=== PATIENT | male | born 1940 ===

== ENCOUNTER 2016-08-31 08:18 | Day surgery (SDC) | payer MEDICARE ==
[2015-07-12 10:22] VITALS: BMI 29.0
[2016-08-31] MEDS ORDERED: Iodixanol 320 MG/ML 200 ML BOTTLE IV ONE (09:12)
[2016-08-31] MEDS ORDERED: Iodixanol 320 MG/ML 100 ML BOTTLE IV ONE (09:12)
[2016-08-31] MEDS ORDERED: Midazolam 2 MG/2 ML VIAL ONE (10:05)
[2016-08-31] MEDS ORDERED: Sodium Chloride 0.45% 1,000 ML IV SCH (15:15)
[2016-08-31] MEDS ORDERED: Sodium Chloride 0.9% 1,000 ML IV ONE (15:45)
[2016-08-31 18:22] VITALS: O2SAT 98
[2016-08-31 18:57] VITALS: BP 146/66; PULSE 63; RESP 18; TEMP 98
--- NOTE | 2016-09-01 05:55 | OP ---
PROCEDURE DATE: 08/31/2016 PERIPHERAL ANGIOGRAPHY AND INTERVENTION REPORT PERFORMING PHYSICIAN: Bharati Coreas MD PREOPERATIVE DIAGNOSES: Peripheral vascular disease, claudication. POSTOPERATIVE DIAGNOSES: Peripheral vascular disease, claudication. PROCEDURE PERFORMED: Retrograde access right common femoral artery, selective catheter placement in the left popliteal artery via contralateral approach. Abdominal aortography with bilateral iliofemoral runoff, bilateral lower extremity angiography, distal embolic protection device in the left popliteal artery, atherectomy of the left popliteal artery, angioplasty of the left popliteal artery. COMPLICATIONS: None. HISTORY: As follows, the patient is a 76-year-old male with a past medical history of hypertension and diabetes mellitus with lifestyle limiting claudication involving the left lower extremity. Ankle brachial index was abnormal. The patient is referred for peripheral angiography. DESCRIPTION OF PROCEDURE: : As follows: After obtaining informed consent, the patient was prepped and draped in usual sterile fashion. The right groin was anesthetized with 2% lidocaine solution. A 5-Irish sheath was inserted into the right common femoral artery using modified Seldinger technique. A non-invasive catheter was advanced in the abdominal aorta. Abdominal aortography is performed. A cast was then positioned with iliac bifurcation. Bilateral iliofemoral runoff was performed. Selective angiography was performed to the left lower extremity. Intervention was performed as described below. FINDINGS: The inferior renal abdominal aorta is free of aneurysm or dissection. Bilateral renal arteries *------* normally. There is no significant renal artery stenosis. The iliac arteries exhibit no significant atherosclerosis bilaterally. There is calcific plaque of significant stenosis on the right common femoral artery. The left common femoral artery is not diseased. The superficial femoral arteries exhibit no significant atherosclerosis bilaterally. In the left leg, there is calcification with a severe 95% stenosis of the proximal left popliteal artery. There is subsequent stenosis as well in the mid popliteal artery. There is a heavy calcified plaque with septal occlusion at the proximal tibioperoneal trunk. They are predominantly single-vessel runoff via the left posterior tibial artery. There is an 80 to 90% stenosis of the proximal third of the left posterior tibial artery. The right leg, there is single-vessel runoff via the right anterior tibial artery. The sheath was exchanged for 7 x 45 cm Cook sheath. Anticoagulation was given. An *------* guidewire was advanced using ZouxiuBlazer support catheter across the aortic stenosis in the popliteal artery position selectively in the mid popliteal artery. The guidewire was removed after advancement of the TrailBlazer catheter. An [employer] BareWire was then advanced through the Omniflush catheter and was placed in the distal tip in the mid left popliteal artery. The TrailBlazer catheter was removed. An Emboshield was advanced over the BareWire and deployed in a distal popliteal artery. A [employer] pathway atherectomy device was advanced over the BareWire and atherectomy was performed of the popliteal artery. Balloon angioplasty was performed 4 x 60 mm balloon with two separate inflations. There was a 30% residual stenosis. The patient at brisk antegrade flow and therefore decision was made to retrieve the Emboshield. There were no complications, and the patient tolerated the procedure well. CONCLUSION: Severe calcific plaque noted in the left popliteal artery, successful atherectomy and angioplasty of the left popliteal artery. PLAN: The patient will continue with current medical therapy. Medical therapy will be provided in consideration for cilostazol. The patient will need follow up ankle brachial indices. Bharati Coreas MD
== END 2016-08-31 19:00 | disposition home or self-care (01) ==
LOC: C.CATHLAB 08:18
PROVIDERS: ATTEND Internal Medicine Cardiovascular Disease
DX: I70.212 Atherosclerosis of native arteries of extremities with intermittent claudication, left leg (principal)
CPT/HCPCS: 36247; 37225; 75625; 75716; 75774; 82948; 85347; 94770; C1724; C1766; C1769; C1884; C1887; C1894; J0360; J1644; J2250; J3010; J7030; J7040; Q9966; Q9967

== ENCOUNTER 2017-02-24 10:16 | Emergency (ER) | payer MEDICARE ==
[2017-02-24 10:17] VITALS: BMI 29.0
[2017-02-24 10:26] VITALS: BP 162/63; PULSE 59; RESP 18; TEMP 97.8; O2SAT 99
--- NOTE | 2017-02-24 11:20 | C.PDOC ---
History Of Present Illness 76 y/o male presents to the ER complaining of lateral right ankle pain which has been present for 3 days. Patient reports that the pain started after he slipped and fell on an icy sidewalk 3 days ago. Patient does not have any other medical complaints. Time Seen by Provider: 02/24/17 10:47 Chief Complaint (Nursing): Lower Extremity Problem/Injury History Per: Patient History/Exam Limitations: no limitations Onset/Duration Of Symptoms: Days Current Symptoms Are (Timing): Still Present Severity: Moderate Past Medical History Reviewed: Historical Data, Nursing Documentation, Vital Signs Vital Signs: Last Vital Signs Temp 97.8 F 02/24/17 10:24 Pulse 59 L 02/24/17 10:24 Resp 18 02/24/17 10:24 BP 162/63 H 02/24/17 10:24 Pulse Ox 99 02/24/17 11:49 - Medical History PMH: Diabetes, HTN, Hypercholesterolemia Denies: Chronic Kidney Disease Surgical History: Hernia Repair (Inguinal,) - [facility] Procedures EXCISE CORD/EPID LES NEC (07/15/12) OTH & OPEN REPAIR DIRECT INGUINAL HERNIA W GRAFT OR PROSTH (07/15/12) OTHER OPEN UMBILICAL HERNIORRHAPHY (07/15/12) Family History: States: No Known Family Hx - Social History Hx Tobacco Use: No Hx Alcohol Use: No Hx Substance Use: No - Immunization History Hx Tetanus Toxoid Vaccination: No Hx Influenza Vaccination: No Hx Pneumococcal Vaccination: No Review Of Systems Except As Marked, All Systems Reviewed And Found Negative. Musculoskeletal: Positive for: Other (right lateral ankle pain) Neurological: Negative for: Weakness, Numbness Physical Exam - Physical Exam Appears: Non-toxic, No Acute Distress Skin: Normal Color, Warm, Ecchymosis (ecchymotic in right ankle, mild ecchymosis in toes) Head: Atraumatic, Normacephalic Eye(s): bilateral: Normal Inspection, PERRL Nose: Normal Oral Mucosa: Moist Neck: Supple Cardiovascular: Rhythm Regular Respiratory: Normal Breath Sounds, No Accessory Muscle Use Extremity: Normal ROM, No Tenderness, Deformity (right ankle), No Swelling Neurological/Psych: Oriented x3, Normal Speech, Normal Cognition, Normal Motor, Normal Sensation ED Course And Treatment O2 Sat by Pulse Oximetry: 99 (RA) Pulse Ox Interpretation: Normal - Other Rad R ankle X-Ray: Interpreted by Me (+ distal fib fx, partial) Progress Note: X-ray of right ankle ordered. ice, motrin, sugar tong splint Reevaluation Time: 11:35 Reassessment Condition: Improved - Physician Consult Information Outcome Of Conversation: 1130: info related to Dr. Velez- Ortho [employer]- will f/u in office. Medical Decision Making Medical Decision Making: R distal fib fx, partial ok for opt f/u per Ortho Disposition Doctor Will See Patient In The: Office Counseled Patient/Family Regarding: Studies Performed, Diagnosis - Disposition Referrals: Jose Alfredo Velez MD [Staff Provider] - Disposition: HOME/ ROUTINE Disposition Time: 11:36 Condition: GOOD Additional Instructions: mantiene elevado shanika puede Ibuprofeno 400-600 mg cada 6 horas shanika necessario Tramadol 50 mg (narcotico) para dolor mas danilo y para dormir. Sigue con Dr. Velez- [facility] [place] para hacer lilian en la semana que viene. Prescriptions: traMADol [Ultram] 50 mg PO Q6H #20 tab Instructions: Ankle Fracture (ED) Forms: [employer] (Vietnamese) Print Language: UZBEK - Clinical Impression Clinical Impression: Ankle fracture, right - Scribe Statement The provider has reviewed the documentation as recorded by the Marcelinoibbarbra Baumann Provider Attestation: All medical record entries made by the Scribe were at my direction and personally dictated by me. I have reviewed the chart and agree that the record accurately reflects my personal performance of the history, physical exam, medical decision making, and the department course for this patient. I have also personally directed, reviewed, and agree with the discharge instructions and disposition.
--- NOTE | 2017-02-24 11:41 | RAD ---
PROCEDURE: Right Ankle Radiographs. HISTORY: lateral R ankle, slip 3 days ago COMPARISON: None available. FINDINGS: BONES: Oblique comminuted displaced distal fibular fracture with intra-articular extension. No additional displaced fracture identified. Small calcaneal enthesophyte. Small heel spur. JOINTS: No dislocation. SOFT TISSUES: Soft tissue swelling. No evidence of radiopaque foreign body. Vascular calcifications. OTHER FINDINGS: None. IMPRESSION: Oblique comminuted displaced distal fibular fracture with intra-articular extension. Soft tissue swelling.
== END 2017-02-24 12:05 | disposition home or self-care (01) ==
LOC: C.ER 10:16
DX: S82.891A Other fracture of right lower leg, initial encounter for closed fracture (principal); W00.0XXA Fall on same level due to ice and snow, initial encounter; Y92.480 Sidewalk as the place of occurrence of the external cause

== ENCOUNTER 2017-03-07 08:35 | Day surgery (SDC) | payer MEDICARE ==
[2017-03-07] MEDS ORDERED: ceFAZolin IV 2 gm in Dextrose 2 GM/50 ML BAG IVPB ONE (12:09)
[2017-03-07] MEDS ORDERED: Lactated Ringer's 1,000 ML IV ONE ×2 (12:19→15:25)
[2017-03-07] MEDS ORDERED: Propofol 10 mg/ml Inj (20 ML) ONE ×2 (12:28→12:41)
[2017-03-07] MEDS ORDERED: Oxycodone/Acetaminophen 5/325 mg Tab PO PRN ×2 (13:39)
[2017-03-07] MEDS ORDERED: Labetalol 5 mg/ml Inj 20ML IV ONE (14:30)
[2017-03-07] MEDS ORDERED: Labetalol 25mg/5ml Syringe IV ONE (14:30)
--- NOTE | 2017-03-07 14:56 | PCM.SURG1 ---
Surgeon's Initial Post Op Note - Surgeon's Notes Surgeon: Dr. Liat DPM Missile Pad Mechanic: Dr. Kali Lainez MD; Dr. Andreas DPM PGY-2 Type of Anesthesia: General Endo Anesthesia Administered By: Dr. Harvey Pre-Operative Diagnosis: displaced right fibular fracture Operative Findings: see operative report Post-Operative Diagnosis: same Operation Performed: closed reduction with manipulation under anesthesia of right distal fibular fracture with cast application Specimen/Specimens Removed: none Estimated Blood Loss: EBL {In ML}: 0 Blood Products Given: N/A Drains Used: No Drains Date of Surgery/Procedure: 03/07/17 Time of Surgery/Procedure: 12:00
[2017-03-07 16:17] VITALS: RESP 16
[2017-03-07 17:34] VITALS: BP 163/58; PULSE 63; TEMP 98.7; O2SAT 97
--- NOTE | 2017-03-08 09:26 | RAD ---
PROCEDURE: Intraoperative Fluoroscopy. HISTORY: FX. RT. ANKLE FINDINGS: Fluoroscopic assistance was provided for right ankle closed reduction. Please refer to the operative report from Dr. SIGALA
== END 2017-03-07 18:37 | disposition home or self-care (01) ==
LOC: C.SDS 08:35
PROVIDERS: ATTEND Student in an Organized Health Care Education/Training Program
DX: S82.61XA Displaced fracture of lateral malleolus of right fibula, initial encounter for closed fracture (principal); S82.401A Unspecified fracture of shaft of right fibula, initial encounter for closed fracture; X58.XXXA Exposure to other specified factors, initial encounter
CPT/HCPCS: 27788; 82948; 97116; 97162; G8978; G8979; G8980; J0360; J0690; J1170; J2704; J3010; J7120

== ENCOUNTER 2017-04-21 09:38 | Inpatient (IN) | payer MEDICARE ==
[2017-04-21 09:38] VITALS: BMI 29.0
[2017-04-21] MEDS ORDERED: Piperacillin/Tazobact 3.375 gm 100 ML IV STA ×2 (10:09→11:21)
[2017-04-21] MEDS ORDERED: Sodium Chloride 0.9% 1,000 ML IV ONE (10:10)
[2017-04-21 10:45] LABS: BASO % 0.4 % (0.0-2.0); EOS % 0.3 % (0.0-4.0); HEMOGLOBIN 14.4 g/dL (12.0-18.0); LYMPH # 1.8 K/uL (1.0-4.3); LYMPH % 14.8 % (20.0-40.0); MEAN CELL VOLUME 91.7 fL (80.0-94.0); MEAN CORPUSCULAR HEMOGLOBIN 31.2 pg (27.0-31.0); MEAN PLATELET VOLUME 8.3 fL (7.2-11.7); MONO # 0.8 K/uL (0.0-0.8); MONO % 7.1 % (0.0-10.0); NEUT # 9.3 K/uL (1.8-7.0); NEUT % 77.4 % (50.0-75.0); RBC 4.62 Mil/uL (4.40-5.90); RED CELL DISTRIBUTION WIDTH 13.2 % (11.5-14.5)
--- NOTE | 2017-04-21 10:53 | RAD ---
PROCEDURE: Right Foot Radiographs. HISTORY: pain COMPARISON: None available. FINDINGS: BONES: Extensive degenerative changes particularly at the level of the distal 1st metatarsal. No acute displaced fracture. Small calcaneal enthesophyte and heel spur. JOINTS: No dislocation. SOFT TISSUES: Soft tissue ulceration/irregularity about the lateral aspect of the midfoot. No evidence of radiopaque foreign body. Vascular calcifications. OTHER FINDINGS: None. IMPRESSION: Soft tissue ulceration/irregularity about the lateral aspect of the midfoot. No acute displaced fracture or dislocation identified. If symptoms persist, or if there is continued clinical concern, x-ray follow-up in 7-10 days should be considered.
--- NOTE | 2017-04-21 10:59 | C.PDOC ---
History Of Present Illness Patient is a 76 y/o male, with a Hx of DM, HTN, and HLD, who presents to the ED with a complaint of an ulcer to the right foot. Patient had a closed reduction of right distal fibula fracture with a cast applied on 03/07/17. Upon removal of cast on 04/03, patient was noted to have ulcer which was treated with antibiotics to no improvement. Patient was evaluated by technical advisor Dr. Josue today who instructed him to come to ED for evaluation. Notes wound has not improved and is very painful; denies any new trauma, fever, SOB, or CP. Patient does not check his sugar daily. Patient's PMD is Dr. Bay. Time Seen by Provider: 04/21/17 09:46 Chief Complaint (Nursing): Lower Extremity Problem/Injury History Per: Patient History/Exam Limitations: no limitations Onset/Duration Of Symptoms: Days Current Symptoms Are (Timing): Still Present Recent travel outside of the [place]: No Past Medical History Reviewed: Historical Data, Nursing Documentation, Vital Signs Vital Signs: Last Vital Signs Temp 98.5 F 04/21/17 13:30 Pulse 60 04/21/17 13:30 Resp 20 04/21/17 13:30 BP 154/72 H 04/21/17 13:30 Pulse Ox 98 04/21/17 17:38 - Medical History PMH: Diabetes, Fractures (RIGHT Fibula), HTN, Hypercholesterolemia Denies: Chronic Kidney Disease Surgical History: Hernia Repair (Inguinal,) - [facility] Procedures EXCISE CORD/EPID LES NEC (07/15/12) OTH & OPEN REPAIR DIRECT INGUINAL HERNIA W GRAFT OR PROSTH (07/15/12) OTHER OPEN UMBILICAL HERNIORRHAPHY (07/15/12) Family History: States: No Known Family Hx - Social History Hx Tobacco Use: No Hx Alcohol Use: No Hx Substance Use: No - Immunization History Hx Tetanus Toxoid Vaccination: No Hx Influenza Vaccination: Yes (2017) Hx Pneumococcal Vaccination: No Review Of Systems Constitutional: Negative for: Fever Cardiovascular: Negative for: Chest Pain Respiratory: Negative for: Shortness of Breath Musculoskeletal: Positive for: Leg Pain (right distal fibula ulcer) Physical Exam - Physical Exam Appears: Well, Non-toxic, No Acute Distress Skin: Warm, Dry Head: Atraumatic, Normacephalic Eye(s): bilateral: Normal Inspection, EOMI Nose: Normal Oral Mucosa: Moist Neck: Normal ROM, Supple Chest: Symmetrical Cardiovascular: Rhythm Regular Respiratory: No Decreased Breath Sounds, No Rales, No Rhonchi, No Wheezing, Other (speaking in full sentences) Gastrointestinal/Abdominal: Soft, No Tenderness Extremity: Tenderness, Capillary Refill (< 3 sec), Other (3 cm ulceration at the base of the 5th metatarsal (+) purulent drainage (+)necrotic eschar (+) surrounding erythema) Pulses: Right Dorsalis Pedis: Decreased Neurological/Psych: Oriented x3, Normal Speech, Other (no focal deficits) ED Course And Treatment - Laboratory Results Result Diagrams: 04/21/17 10:38 04/21/17 10:38 O2 Sat by Pulse Oximetry: 98 - Other Rad Right foot X-Ray: Interpreted by Me, Viewed By Me Interpretation: PROCEDURE: Right Foot Radiographs. HISTORY: pain. COMPARISON : None available. FINDINGS: BONES: Extensive degenerative changes particularly at the level of the distal 1st metatarsal. No acute displaced fracture. Small calcaneal enthesophyte and heel spur. JOINTS: No dislocation. SOFT TISSUES: Soft tissue ulceration/irregularity about the lateral aspect of the midfoot. No evidence of radiopaque foreign body. Vascular calcifications. OTHER FINDINGS: None. IMPRESSION: Soft tissue ulceration/ irregularity about the lateral aspect of the midfoot. No acute displaced fracture or dislocation identified. If symptoms persist, or if there is continued clinical concern, x-ray follow-up in 7-10 days should be considered. Progress Note: Blood work and IV fluids administered. CAse discussed with david Salter dupon admission. Case discussed with podiatry resident, who evaluted pt in ED and agreed upon admission. Disposition - Disposition Disposition: HOSPITALIZED Disposition Time: 11:00 Condition: STABLE - Clinical Impression Clinical Impression: Hyperglycemia, Non-healing ulcer of foot - Scribe Statement The provider has reviewed the documentation as recorded by the Scribbarbra Sandoval All medical record entries made by the Marcelinoibbarbra were at my direction and personally dictated by me. I have reviewed the chart and agree that the record accurately reflects my personal performance of the history, physical exam, medical decision making, and the department course for this patient. I have also personally directed, reviewed, and agree with the discharge instructions and disposition.
[2017-04-21 11:09] LABS: ALB/GLOB RATIO 1.2 (1.0-2.1); ALBUMIN 4.2 g/dL (3.5-5.0); ALT/SGPT 33 U/L (21-72); AST/SGOT 27 U/L (17-59); BLOOD UREA NITROGEN 26 mg/dL (9-20); CALCIUM 9.6 mg/dl (8.6-10.4); GFR AFRICAN-AMERICAN > 60; GFR NON-AFRICAN AMERICAN > 60
[2017-04-21] MEDS ORDERED: Bacitracin 500 Units/gm Oint Foilpak UD ONE (11:13)
[2017-04-21] MEDS ORDERED: Piperacillin/Tazobact 3.375 gm 100 ML IVPB ONE (11:30)
--- NOTE | 2017-04-21 11:33 | CP.PCM.CON ---
History of Present Illness - History of Present Illness History of Present Illness: Podiatry Consult Note: Dr. Josue 76 year old male patient with PMHx of DM, HTN, HLD was seen and evaluated in the ED for right lateral foot infected wound. Patient has a history of right fibular fracture for which he was placed in a long leg cast. Patient was educated to remain NWB while in cast but patient was non-compliant. Upon taking off the cast, patient was observed to have an ulcer on the right lateral foot at the pressure point area of the cast from weight bearing. Patient was placed on Augmentin when he was last seen and reports that he completed the full course. Patient reports that he was seen by Dr. Josue in his office earlier who sent him to the hospital for the progressed infection. Patient reports that he has a lot of pain at the site of the ulcer. Patient denies of having any recent F/N/V/C/SOB/CP/headache. Patient denies of having any other pedal complains at this time. PMHx: DM, HTN, HLD PSHx: Right fibular fracture reduction, hernia repair Allergies: N.K.D.A SocialHx: Denies of smoking, EtOH or illicit drug usage Review of Systems - Constitutional Constitutional: As Per HPI Past Patient History - Past Medical History & Family History Past Medical History?: Yes - Past Social History Smoking Status: Former Smoker - CARDIAC Hx Hypercholesterolemia: Yes Hx Hypertension: Yes - PULMONARY Hx Respiratory Disorders: No - NEUROLOGICAL Hx Neurological Disorder: No - HEENT Hx HEENT Problems: No - RENAL Hx Chronic Kidney Disease: No - ENDOCRINE/METABOLIC Hx Endocrine Disorders: Yes Hx Diabetes Mellitus Type 2: Yes - HEMATOLOGICAL/ONCOLOGICAL Hx Blood Disorders: No - INTEGUMENTARY Hx Dermatological Problems: No - MUSCULOSKELETAL/RHEUMATOLOGICAL Hx Fractures: Yes (RIGHT Fibula) - GASTROINTESTINAL Hx Gastrointestinal Disorders: No - GENITOURINARY/GYNECOLOGICAL Hx Genitourinary Disorders: No - PSYCHIATRIC Hx Substance Use: No - SURGICAL HISTORY Hx Surgeries: Yes Hx Angiogram: Yes Hx Angioplasty: Yes Hx Herniorrhaphy: Yes - ANESTHESIA Hx Anesthesia: Yes Hx Anesthesia Reactions: No Hx Malignant Hyperthermia: No Meds Allergies/Adverse Reactions: Allergies Allergy/AdvReac Type Severity Reaction Status Date / Time No Known Allergies Allergy Verified 04/21/17 09:41 - Medications Medications: Current Medications Piperacillin Sod/Tazobactam Sod (Zosyn 3.375 In Ns 100ml) 100 mls @ 200 mls/hr IV STAT STA PRN Reason: Protocol Stop: 04/21/17 11:50 Physical Exam - Constitutional Appears: Well, Non-toxic, No Acute Distress - Extremities Exam Additional comments: RLE focused exam: VASC: DP/PT pulses are palpable 1/4 . Cap refill time: < 3 seconds to all digits. Skin temperature warm to warm from proximal to distal. mild non-pitting edema noted on on the foot extending to the ankle with accompanied erythema DERM: wound measuring approx. 2.5 x 1.5cm x <0.1 cm at the base of the 5th metatarsal on the lateral aspect with no active purulent drainage, wound base appears to have 75% necrotic eschar with 25% fibrotic on the dorsal rim, minimal serous drainage upon pressing the wound edges, no maceration, no tunneling, (+) probe to bone with exposed extensor tendon, mild malodor, troy- wound erythema noted not extending proximally, clinical suspicion of active infection NEURO: Epicritic and protective sensation grossly intact ORTHO: mild tenderness on palpation of the ulcerated site, Alva's negative, no pain on palpation of the calf, MMT: 5/5 in all 4 directions at the ankle joint - Neurological Exam Neurological exam: Alert, Oriented x3 - Psychiatric Exam Psychiatric exam: Normal Affect, Normal Mood Results - Vital Signs Recent Vital Signs: Last Vital Signs Temp 97.6 F 04/21/17 09:42 Pulse 84 04/21/17 09:42 Resp 18 04/21/17 09:42 BP 163/86 H 04/21/17 09:42 Pulse Ox 98 04/21/17 11:25 - Labs Result Diagrams: 04/21/17 10:38 04/21/17 10:38 Labs: Laboratory Results - last 24 hr 04/21/17 04/21/17 04/21/17 10:04 10:38 10:38 WBC 12.0 H RBC 4.62 Hgb 14.4 Hct 42.4 MCV 91.7 MCH 31.2 H MCHC 34.0 RDW 13.2 Plt Count 343 D MPV 8.3 Neut % (Auto) 77.4 H Lymph % (Auto) 14.8 L Hutchinson % (Auto) 7.1 Eos % (Auto) 0.3 Baso % (Auto) 0.4 Neut # (Auto) 9.3 H Lymph # (Auto) 1.8 Hutchinson # (Auto) 0.8 Eos # (Auto) 0.0 Baso # (Auto) 0.0 Sodium 135 Potassium 4.7 Chloride 96 L Carbon Dioxide 23 Anion Gap 21 H BUN 26 H Creatinine 1.0 Est GFR ( Amer) > 60 Est GFR (Non-Af Amer) > 60 POC Glucose (mg/dL) 327 H Random Glucose 390 H Calcium 9.6 Total Bilirubin 0.4 AST 27 ALT 33 Alkaline Phosphatase 91 Total Protein 7.7 Albumin 4.2 Globulin 3.5 Albumin/Globulin Ratio 1.2 Assessment & Plan - Assessment and Plan (Free Text) Assessment: 76 year old male patient with PMHx of DM, HTN, HLD was evaluated for right lateral foot infected wound (Haines 3) Plan: Patient seen and evaluated in ED Plan discussed with attending Dr. Josue Labs, vitals and charts reviewed - afebrile, WBC @ 12.0 X-rays of the right foot ordered/reviewed - Void in the soft tissue with radiolucency at the site of the wound but no presence of soft tissue emphysema. Periosteal giovanna reaction noted at the styloid process of the 5th metatarsal possibly indicating acute OM Wound cultures taken - pending Wound cleaned using saline and dressing applied using bacitracin, DSD Bactroban ordered Patient started on Vancomycin and Zosyn in the ED Patient will be admitted to the hospital for fdc IV abx ID consult placed - Dr. Mary Thank you for the podiatry consult and allowing to take part in patient care Podiatry to follow patient while in house - Date & Time Date: 04/21/17 Time: 11:48
--- NOTE | 2017-04-21 17:40 | CP.PCM.HP ---
History of Present Illness - History of Present Illness History of Present Illness: [id number] male with history of diabetes history of hypertension history of hypercholesterolemia history of recent fibular fracture status post cost patient removed Noncompliant with the past 2 months removed patient has an ulcer patient came in to be seen as is on the dressing patient started on IV antibiotic patient received also p.o. antibiotic at home as per the patient did not get better eventually patient was brought to the hospital for further workup patient has diabetes long-standing patient denies any fever denies any chest pain denies any nausea denies any vomiting denies any sweating denies any shortness of breath Present on Admission - Present on Admission Any Indicators Present on Admission: No History of DVT/PE: No History of Uncontrolled Diabetes: Yes Urinary Catheter: No (per rptocol) Decubitus Ulcer Present: No History Surgical Site Infection Following: Orthopedic Procedures (right lrg) Past Patient History - Past Medical History & Family History Past Medical History?: Yes - Past Social History Smoking Status: Former Smoker - CARDIAC Hx Hypercholesterolemia: Yes Hx Hypertension: Yes - PULMONARY Hx Respiratory Disorders: No - NEUROLOGICAL Hx Neurological Disorder: No - HEENT Hx HEENT Problems: No - RENAL Hx Chronic Kidney Disease: No - ENDOCRINE/METABOLIC Hx Endocrine Disorders: Yes Hx Diabetes Mellitus Type 2: Yes - HEMATOLOGICAL/ONCOLOGICAL Hx Blood Disorders: No - INTEGUMENTARY Hx Dermatological Problems: Yes Other/Comment: Right distula fibula ulcer - MUSCULOSKELETAL/RHEUMATOLOGICAL Hx Fractures: Yes (RIGHT Fibula) - GASTROINTESTINAL Hx Gastrointestinal Disorders: No - GENITOURINARY/GYNECOLOGICAL Hx Genitourinary Disorders: No - PSYCHIATRIC Hx Substance Use: No - SURGICAL HISTORY Hx Surgeries: Yes Hx Angiogram: Yes Hx Angioplasty: Yes Hx Herniorrhaphy: Yes - ANESTHESIA Hx Anesthesia: Yes Hx Anesthesia Reactions: No Hx Malignant Hyperthermia: No Meds Allergies/Adverse Reactions: Allergies Allergy/AdvReac Type Severity Reaction Status Date / Time No Known Allergies Allergy Verified 04/21/17 09:41 Physical Exam - Constitutional Appears: Well - Head Exam Head Exam: ATRAUMATIC, NORMAL INSPECTION, NORMOCEPHALIC - Eye Exam Eye Exam: EOMI, Normal appearance, PERRL Pupil Exam: NORMAL ACCOMODATION, PERRL - ENT Exam ENT Exam: Mucous Membranes Moist, Normal Exam - Neck Exam Neck exam: Positive for: Normal Inspection - Respiratory Exam Respiratory Exam: Decreased Breath Sounds - Cardiovascular Exam Cardiovascular Exam: REGULAR RHYTHM, +S1, +S2 - GI/Abdominal Exam GI & Abdominal Exam: Diminished Bowel Sounds, Soft - Rectal Exam Rectal Exam: Deferred Results - Vital Signs Recent Vital Signs: Last Vital Signs Temp 98.5 F 04/21/17 13:30 Pulse 60 04/21/17 13:30 Resp 20 04/21/17 13:30 BP 154/72 H 04/21/17 13:30 Pulse Ox 98 04/21/17 17:38 - Labs Result Diagrams: 05/01/17 06:16 05/01/17 06:16 Labs: Laboratory Results - last 24 hr 04/21/17 04/21/17 04/21/17 10:04 10:38 10:38 WBC 12.0 H RBC 4.62 Hgb 14.4 Hct 42.4 MCV 91.7 MCH 31.2 H MCHC 34.0 RDW 13.2 Plt Count 343 D MPV 8.3 Neut % (Auto) 77.4 H Lymph % (Auto) 14.8 L [place] % (Auto) 7.1 Eos % (Auto) 0.3 Baso % (Auto) 0.4 Neut # (Auto) 9.3 H Lymph # (Auto) 1.8 [place] # (Auto) 0.8 Eos # (Auto) 0.0 Baso # (Auto) 0.0 Sodium 135 Potassium 4.7 Chloride 96 L Carbon Dioxide 23 Anion Gap 21 H BUN 26 H Creatinine 1.0 Est GFR ( Amer) > 60 Est GFR (Non-Af Amer) > 60 POC Glucose (mg/dL) 327 H Random Glucose 390 H Calcium 9.6 Total Bilirubin 0.4 AST 27 ALT 33 Alkaline Phosphatase 91 Total Protein 7.7 Albumin 4.2 Globulin 3.5 Albumin/Globulin Ratio 1.2 04/21/17 13:34 WBC RBC Hgb Hct MCV MCH MCHC RDW Plt Count MPV Neut % (Auto) Lymph % (Auto) [place] % (Auto) Eos % (Auto) Baso % (Auto) Neut # (Auto) Lymph # (Auto) [place] # (Auto) Eos # (Auto) Baso # (Auto) Sodium Potassium Chloride Carbon Dioxide Anion Gap BUN Creatinine Est GFR ( Amer) Est GFR (Non-Af Amer) POC Glucose (mg/dL) 176 H Random Glucose Calcium Total Bilirubin AST ALT Alkaline Phosphatase Total Protein Albumin Globulin Albumin/Globulin Ratio Assessment & Plan (1) Cellulitis Status: Acute (2) Hyperglycemia Status: Acute (3) Non-healing ulcer of foot Status: Acute (4) Osteomyelitis Status: Acute (5) Ankle fracture, right Status: Acute (6) Ankle pain Status: Acute (7) Hyperglycemia without ketosis Status: Acute (8) Leg pain, bilateral Status: Acute (9) Ulcer Status: Acute - Assessment and Plan (Free Text) Plan: Vascular surgical consult ID consult Vascular Doppler of both lower legs arterial and venous IV antibiotic Septic workup PODIATRY consultations Workup for foot ulcer Protonix and Lovenox
[2017-04-21] MEDS: Piperacillin/Tazobact 3.375 GM in Sodium Chloride 100 ML IVPB SCH (19:03)
[2017-04-21] MEDS ORDERED: HYDROmorphone 1 mg/ml ISec IVP PRN (22:55)
[2017-04-22] MEDS: Piperacillin/Tazobact 3.375 GM in Sodium Chloride 100 ML IVPB SCH ×3 (03:22→20:49)
[2017-04-22 07:13] LABS: BASO # 0.1 K/uL (0.0-0.2); BASO % 0.7 % (0.0-2.0); EOS # 0.1 K/uL (0.0-0.7); EOS % 1.1 % (0.0-4.0); HEMOGLOBIN 13.3 g/dL (12.0-18.0); LYMPH # 2.6 K/uL (1.0-4.3); LYMPH % 26.7 % (20.0-40.0); MEAN CELL VOLUME 91.2 fL (80.0-94.0); MEAN CORPUSCULAR HEMOGLOBIN 31.3 pg (27.0-31.0); MEAN CORPUSCULAR HGB CONC 34.3 g/dL (33.0-37.0); MEAN PLATELET VOLUME 7.9 fL (7.2-11.7); MONO # 0.8 K/uL (0.0-0.8); MONO % 7.9 % (0.0-10.0); NEUT # 6.2 K/uL (1.8-7.0); NEUT % 63.6 % (50.0-75.0); RBC 4.24 Mil/uL (4.40-5.90); RED CELL DISTRIBUTION WIDTH 13.2 % (11.5-14.5); WHITE BLOOD COUNT 9.8 K/uL (4.8-10.8)
[2017-04-22 07:57] LABS: ALB/GLOB RATIO 1.1 (1.0-2.1); ALBUMIN 3.7 g/dL (3.5-5.0); ALT/SGPT 26 U/L (21-72); AST/SGOT 23 U/L (17-59); BLOOD UREA NITROGEN 22 mg/dL (9-20); CALCIUM 8.9 mg/dl (8.6-10.4); GFR AFRICAN-AMERICAN > 60; GFR NON-AFRICAN AMERICAN > 60
--- NOTE | 2017-04-22 15:35 | CP.PCM.CON ---
History of Present Illness - History of Present Illness History of Present Illness: 76 year old male patient was seen and evaluated for right lateral foot infected wound. Patient has a history of right fibular fracture for which he was placed in a long leg cast. Patient was educated to remain NWB while in cast but patient was non-compliant. Upon taking off the cast, patient was observed to have an ulcer on the right lateral foot at the pressure point area of the cast from weight bearing. Patient was placed on Augmentin when he was last seen and reports that he completed the full course. Patient reports that he was seen by Dr. Josue in his office earlier who sent him to the hospital for the progressed infection. Patient reports that he has a lot of pain at the site of the ulcer. Patient denies of having any recent F/N/V/C/SOB/CP/headache. Patient denies of having any other pedal complains at this time. ID consulted for nonhealing wound r/o om PMHx: DM, HTN, HLD PSHx: Right fibular fracture reduction, hernia repair Allergies: N.K.D.A SocialHx: Denies of smoking, EtOH or illicit drug usage Review of Systems - Review of Systems All systems: reviewed and no additional remarkable complaints except - Constitutional Constitutional: absent: As Per HPI, Anorexia, Chills, Daytime Sleepiness, Excessive Sweating, Fatigue, Fever, Frequent Falls, Headache, Increased Appetite , Lethargy, Malaise, Night Sweats, Snoring, Sleep Apnea, Weight Gain, Weight Loss, Weakness, Other - EENT Eyes: absent: As Per HPI, Blind Spots, Blurred Vision, Change in Vision, Decreased Night Vision, Diplopia, Discharge, Dry Eye, Exophthalmos, Floaters, Irritation, Itchy Eyes, Loss of Peripheral Vision, Pain, Photophobia, Requires Corrective Lenses, Sees Flashes, Spots in Vision, Tunnel Vision, Other Visual Disturbances, Loss of Vision, Other Ears: absent: As Per HPI, Decreased Hearing, Ear Discharge, Ear Pain, Tinnitus, Abnormal Hearing, Disequilibrium, Dizziness, Other Nose/Mouth/Throat: absent: As Per HPI, Epistaxis, Nasal Congestion, Nasal Discharge, Nasal Obstruction, Nasal Trauma, Nose Pain, Post Nasal Drip, Sinus Pain, Sinus Pressure, Bleeding Gums, Change in Voice, Dental Pain, Dry Mouth, Dysphagia, Halitosis, Hoarsness, Lip Swelling, Mouth Lesions, Mouth Pain, Odynophagia, Sore Throat, Throat Swelling, Tongue Swelling, Facial Pain, Neck Pain, Neck Mass, Other - Cardiovascular Cardiovascular: absent: As Per HPI, Acrocyanosis, Chest Pain, Chest Pain at Rest , Chest Pain with Activity, Claudication, Diaphoresis, Dyspnea, Dyspnea on Exertion, Edema, Irregular Heart Rhythm, Pain Radiating to Arm/Neck/Jaw, Leg Edema, Leg Ulcers, Lightheadedness, Orthopnea, Palpitations, Paroxysmal Nocturnal Dyspnea, Pedal Edema, Radiating Pain, Rapid Heart Rate, Slow Heart Rate, Syncope, Other - Respiratory Respiratory: absent: As Per HPI, Cough, Dyspnea, Hemoptysis, Dyspnea on Exertion , Wheezing, Snoring, Stridor, Pain on Inspiration, Chest Congestion, Excessive Mucous Production, Change in Mucous Color, Pain with Coughing, Other - Gastrointestinal Gastrointestinal: absent: As Per HPI, Abdominal Pain, Belching, Bloating, Change in Bowel Habits, Change in Stool Character, Coffee Ground Emesis, Constipation, Cramping, Diarrhea, Dyspepsia, Dysphagia, Early Satiety, Excessive Flatus, Fecal Incontinence, Heartburn, Hematemesis, Hematochezia, Loose Stools, Melena, Nausea, Odynophagia, Temesmus, Vomiting, Other - Genitourinary Genitourinary: absent: As Per HPI, Change in Urinary Stream, Difficulty Urinating, Dysuria, Flank Pain, Hematuria, Pyuria, Nocturia, Urinary Incontinence, Urinary Frequency, Urinary Hesitance, Urinary Urgency, Voiding Freq/Small Amts, Freq UTI, Hx Renal/Bladder Calculi, Hx /Renal Surgery, Bladder Distension, Other - Musculoskeletal Musculoskeletal: As Per HPI - Integumentary Integumentary: As Per HPI - Neurological Neurological: absent: As Per HPI, Abnormal Gait, Abnormal Hearing, Abnormal Movements, Abnormal Speech, Behavioral Changes, Burning Sensations, Confusion, Convulsions, Disequilibrium, Dizziness, Numbness, Focal Weakness, Frequent Falls , Headaches, Lack of Coordination, Loss of Vision, Memory Loss, Paresthesias, Radicular Pain, Restless Legs, Sensory Deficit, Syncope, Tingling, Tremor, Vertigo, Weakness, Other Visual Disturbances, Other - Psychiatric Psychiatric: absent: As Per HPI, Abnormal Sleep Pattern, Anhedonia, Anxiety, Auditory Hallucinations, Behavioral Changes, Change in Appetite, Change in Libido, Confusion, Depression, Difficulty Concentrating, Hallucinations, Homicidal Ideation, Hopelessness, Irritability, Memory Loss, Mood Swings, Panic Attacks, Paranoia, Suicidal Ideation, Visual Hallucinations, Tactile Hallucinations, Other - Endocrine Endocrine: absent: As Per HPI, Change in Body Appearance, Change in Libido, Cold Intolorance, Deepening of Voice, Excessive Sweating, Fatigue, Flushing, Heat Intolorance, Increase in Ring/Shoe/Hat Size, Palpitations, Polydipsia, Polyphagia, Polyuria, Other - Hematologic/Lymphatic Hematologic: absent: As Per HPI, Easy Bleeding, Easy Bruising, Lymphadenopathy, Other Past Patient History - Past Medical History & Family History Past Medical History?: Yes - Past Social History Smoking Status: Former Smoker - CARDIAC Hx Hypercholesterolemia: Yes Hx Hypertension: Yes - PULMONARY Hx Respiratory Disorders: No - NEUROLOGICAL Hx Neurological Disorder: No - HEENT Hx HEENT Problems: No - RENAL Hx Chronic Kidney Disease: No - ENDOCRINE/METABOLIC Hx Endocrine Disorders: Yes Hx Diabetes Mellitus Type 2: Yes - HEMATOLOGICAL/ONCOLOGICAL Hx Blood Disorders: No - INTEGUMENTARY Hx Dermatological Problems: Yes Other/Comment: Right distula fibula ulcer - MUSCULOSKELETAL/RHEUMATOLOGICAL Hx Fractures: Yes (RIGHT Fibula) - GASTROINTESTINAL Hx Gastrointestinal Disorders: No - GENITOURINARY/GYNECOLOGICAL Hx Genitourinary Disorders: No - PSYCHIATRIC Hx Substance Use: No - SURGICAL HISTORY Hx Surgeries: Yes Hx Angiogram: Yes Hx Angioplasty: Yes Hx Herniorrhaphy: Yes - ANESTHESIA Hx Anesthesia: Yes Hx Anesthesia Reactions: No Hx Malignant Hyperthermia: No Meds Allergies/Adverse Reactions: Allergies Allergy/AdvReac Type Severity Reaction Status Date / Time No Known Allergies Allergy Verified 04/21/17 09:41 - Medications Medications: Current Medications Aspirin (Ecotrin) 81 mg PO DAILY [facility] Last Admin: 04/22/17 10:31 Dose: 81 mg Glimepiride (Amaryl) 4 mg PO DAILY [facility] Last Admin: 04/22/17 10:31 Dose: 4 mg Heparin Sodium (Porcine) (Heparin) 5,000 units SC Q8 [facility] Last Admin: 04/22/17 14:10 Dose: 5,000 units Hydromorphone HCl (Dilaudid) 1 mg IVP Q6H PRN PRN Reason: Pain, severe (8-10) Last Admin: 04/22/17 08:46 Dose: 1 mg Piperacillin Sod/Tazobactam (Sod 3.375 gm/ Sodium Chloride) 100 mls @ 200 mls/ hr IVPB Q8H [facility] PRN Reason: Protocol Last Admin: 04/22/17 12:04 Dose: 200 mls/hr Lisinopril (Zestril) 5 mg PO DAILY [facility] Last Admin: 04/22/17 10:31 Dose: 5 mg Metformin HCl (Glucophage Xr) 500 mg PO BID [facility] Last Admin: 04/22/17 10:45 Dose: 500 mg Mupirocin (Bactroban Ointment) 1 gm TOP BID [facility] Last Admin: 04/22/17 10:32 Dose: 1 applic Pneumococcal Polyvalent Vaccine (Pneumovax 23 Vaccine) 0.5 ml IM .ONCE ONE Stop: 04/24/17 10:01 Physical Exam - Constitutional Appears: Non-toxic, Chronically Ill - Head Exam Head Exam: NORMOCEPHALIC - Eye Exam Eye Exam: PERRL. absent: Scleral icterus - ENT Exam ENT Exam: Mucous Membranes Dry, Normal External Ear Exam - Neck Exam Neck exam: Negative for: Lymphadenopathy - Respiratory Exam Respiratory Exam: Decreased Breath Sounds, Clear to Auscultation Bilateral - Cardiovascular Exam Cardiovascular Exam: REGULAR RHYTHM, +S1, +S2 - GI/Abdominal Exam GI & Abdominal Exam: Diminished Bowel Sounds, Soft. absent: Tenderness - Rectal Exam Rectal Exam: Deferred - Exam Exam: NORMAL INSPECTION - Extremities Exam Extremities exam: Positive for: pedal edema, tenderness, pedal pulses present. Negative for: calf tenderness - Back Exam Back exam: absent: CVA tenderness (L), CVA tenderness (R) - Neurological Exam Neurological exam: Alert, CN II-XII Intact, Oriented x3, Reflexes Normal - Psychiatric Exam Psychiatric exam: Normal Mood - Skin Skin Exam: Dry Additional comments: RLE focused exam: VASC: DP/PT pulses are palpable 1/4 . Cap refill time: < 3 seconds to all digits. Skin temperature warm to warm from proximal to distal. mild non-pitting edema noted on on the foot extending to the ankle with accompanied erythema DERM: wound measuring approx. 2.5 x 1.5cm x <0.1 cm at the base of the 5th metatarsal on the lateral aspect with no active purulent drainage, wound base appears to have 75% necrotic eschar with 25% fibrotic on the dorsal rim, minimal serous drainage upon pressing the wound edges, no maceration, no tunneling, (+) probe to bone with exposed extensor tendon, mild malodor, troy- wound erythema noted not extending proximally, clinical suspicion of active infection NEURO: Epicritic and protective sensation grossly intact ORTHO: mild tenderness on palpation of the ulcerated site, Alva's negative, no pain on palpation of the calf, MMT: 5/5 in all 4 directions at the ankle joint Results - Vital Signs Recent Vital Signs: Last Vital Signs Temp 98.2 F 04/22/17 00:00 Pulse 67 04/22/17 00:00 Resp 20 04/22/17 00:00 BP 153/77 H 04/22/17 00:00 Pulse Ox 96 04/22/17 00:00 - Labs Result Diagrams: 04/22/17 07:04 04/22/17 07:04 Labs: Laboratory Results - last 24 hr 04/21/17 04/21/17 04/22/17 16:56 22:09 06:16 WBC RBC Hgb Hct MCV MCH MCHC RDW Plt Count MPV Neut % (Auto) Lymph % (Auto) [place] % (Auto) Eos % (Auto) Baso % (Auto) Neut # (Auto) Lymph # (Auto) [place] # (Auto) Eos # (Auto) Baso # (Auto) Sodium Potassium Chloride Carbon Dioxide Anion Gap BUN Creatinine Est GFR ( Amer) Est GFR (Non-Af Amer) POC Glucose (mg/dL) 188 H 144 H 160 H Random Glucose Calcium Total Bilirubin AST ALT Alkaline Phosphatase Total Protein Albumin Globulin Albumin/Globulin Ratio 04/22/17 04/22/17 04/22/17 07:04 07:04 11:37 WBC 9.8 RBC 4.24 L Hgb 13.3 Hct 38.7 MCV 91.2 MCH 31.3 H MCHC 34.3 RDW 13.2 Plt Count 297 MPV 7.9 Neut % (Auto) 63.6 Lymph % (Auto) 26.7 [place] % (Auto) 7.9 Eos % (Auto) 1.1 Baso % (Auto) 0.7 Neut # (Auto) 6.2 Lymph # (Auto) 2.6 [place] # (Auto) 0.8 Eos # (Auto) 0.1 Baso # (Auto) 0.1 Sodium 139 Potassium 4.5 Chloride 100 Carbon Dioxide 29 Anion Gap 15 BUN 22 H Creatinine 0.9 Est GFR ( Amer) > 60 Est GFR (Non-Af Amer) > 60 POC Glucose (mg/dL) 257 H Random Glucose 165 H Calcium 8.9 Total Bilirubin 0.4 AST 23 ALT 26 Alkaline Phosphatase 67 Total Protein 7.1 Albumin 3.7 Globulin 3.4 Albumin/Globulin Ratio 1.1 Assessment & Plan (1) Cellulitis Status: Acute (2) Hyperglycemia Status: Acute (3) Non-healing ulcer of foot Status: Acute (4) Hyperglycemia without ketosis Status: Acute (5) Leg pain, bilateral Status: Acute (6) Ulcer Status: Acute - Assessment and Plan (Free Text) Assessment: possible om right foot consider vascular eval may need CTA possible OR debridement and cultures cont IV rx for min 6 weeks
--- NOTE | 2017-04-22 16:04 | CP.PCM.PN ---
Subjective - Date & Time of Evaluation Date of Evaluation: 04/22/17 Time of Evaluation: 08:30 - Subjective Subjective: clinically same Objective - Vital Signs/Intake and Output Vital Signs (last 24 hours): Temp Pulse Resp BP Pulse Ox 98.2 F 67 20 153/77 H 96 04/22/17 00:00 04/22/17 00:00 04/22/17 00:00 04/22/17 00:00 04/22/17 00:00 Intake and Output: 04/22/17 04/22/17 06:59 18:59 Intake Total Balance - Medications Medications: Current Medications Aspirin (Ecotrin) 81 mg PO DAILY [facility] Last Admin: 04/22/17 10:31 Dose: 81 mg Glimepiride (Amaryl) 4 mg PO DAILY [facility] Last Admin: 04/22/17 10:31 Dose: 4 mg Heparin Sodium (Porcine) (Heparin) 5,000 units SC Q8 [facility] Last Admin: 04/22/17 14:10 Dose: 5,000 units Hydromorphone HCl (Dilaudid) 1 mg IVP Q6H PRN PRN Reason: Pain, severe (8-10) Last Admin: 04/22/17 08:46 Dose: 1 mg Piperacillin Sod/Tazobactam (Sod 3.375 gm/ Sodium Chloride) 100 mls @ 200 mls/ hr IVPB Q8H [facility] PRN Reason: Protocol Last Admin: 04/22/17 12:04 Dose: 200 mls/hr Lisinopril (Zestril) 5 mg PO DAILY [facility] Last Admin: 04/22/17 10:31 Dose: 5 mg Metformin HCl (Glucophage Xr) 500 mg PO BID [facility] Last Admin: 04/22/17 10:45 Dose: 500 mg Mupirocin (Bactroban Ointment) 1 gm TOP BID [facility] Last Admin: 04/22/17 10:32 Dose: 1 applic Pneumococcal Polyvalent Vaccine (Pneumovax 23 Vaccine) 0.5 ml IM .ONCE ONE Stop: 04/24/17 10:01 - Labs Labs: 04/22/17 07:04 04/22/17 07:04 - Constitutional Appears: Well - Head Exam Head Exam: ATRAUMATIC, NORMAL INSPECTION, NORMOCEPHALIC - Eye Exam Eye Exam: EOMI, Normal appearance, PERRL Pupil Exam: NORMAL ACCOMODATION, PERRL - ENT Exam ENT Exam: Mucous Membranes Moist, Normal Exam - Neck Exam Neck Exam: Full ROM, Normal Inspection. absent: Lymphadenopathy - Respiratory Exam Respiratory Exam: Decreased Breath Sounds - Cardiovascular Exam Cardiovascular Exam: REGULAR RHYTHM, +S1, +S2 - GI/Abdominal Exam GI & Abdominal Exam: Soft, Diminished Bowel Sounds - Rectal Exam Rectal Exam: Deferred Assessment and Plan - Assessment and Plan (Free Text) Plan: Vascular surgeon Doppler report follow-up We discussed with Dr. Hernandez Continue Amaryl Continue heparin Continue diluted Continue Zosyn Management as ordered
--- NOTE | 2017-04-22 16:38 | CP.PCM.PN ---
Subjective - Date & Time of Evaluation Date of Evaluation: 04/22/17 Time of Evaluation: 16:35 - Subjective Subjective: Podiatry progress Note: Dr. Josue 76 year old male seen at bedside for right lateral foot infected wound. Patient was admitted yesterday after being sent from Dr. Josue's office. Patient reports that he has a lot of pain at the site of the ulcer. Patient denies any acute events overnight. Patient appears in NAD. Dressing remains clean,dry, intact to right foot. Patient denies of having any recent F/N/V/C/SOB/CP/ headache. Patient denies of having any other pedal complains at this time. Objective - Vital Signs/Intake and Output Vital Signs (last 24 hours): Temp Pulse Resp BP Pulse Ox 97.9 F 71 20 139/73 96 04/22/17 15:00 04/22/17 15:00 04/22/17 15:00 04/22/17 15:00 04/22/17 15:00 Intake and Output: 04/22/17 04/22/17 06:59 18:59 Intake Total Balance - Medications Medications: Current Medications Aspirin (Ecotrin) 81 mg PO DAILY [facility] Last Admin: 04/22/17 10:31 Dose: 81 mg Glimepiride (Amaryl) 4 mg PO DAILY [facility] Last Admin: 04/22/17 10:31 Dose: 4 mg Heparin Sodium (Porcine) (Heparin) 5,000 units SC Q8 [facility] Last Admin: 04/22/17 14:10 Dose: 5,000 units Hydromorphone HCl (Dilaudid) 1 mg IVP Q6H PRN PRN Reason: Pain, severe (8-10) Last Admin: 04/22/17 16:06 Dose: 1 mg Piperacillin Sod/Tazobactam (Sod 3.375 gm/ Sodium Chloride) 100 mls @ 200 mls/ hr IVPB Q8H [facility] PRN Reason: Protocol Last Admin: 04/22/17 12:04 Dose: 200 mls/hr Lisinopril (Zestril) 5 mg PO DAILY [facility] Last Admin: 04/22/17 10:31 Dose: 5 mg Metformin HCl (Glucophage Xr) 500 mg PO BID [facility] Last Admin: 04/22/17 10:45 Dose: 500 mg Mupirocin (Bactroban Ointment) 1 gm TOP BID [facility] Last Admin: 04/22/17 10:32 Dose: 1 applic Pneumococcal Polyvalent Vaccine (Pneumovax 23 Vaccine) 0.5 ml IM .ONCE ONE Stop: 04/24/17 10:01 - Labs Labs: 04/22/17 07:04 04/22/17 07:04 - Constitutional Appears: Well, Non-toxic, No Acute Distress - Extremities Exam Additional comments: RLE focused exam: VASC: DP/PT pulses are palpable 1/4 . Cap refill time: < 3 seconds to all digits. Skin temperature warm to warm from proximal to distal. mild non-pitting edema noted on on the foot extending to the ankle with accompanied erythema DERM: wound measuring approx. 2.5 x 1.5cm x <0.1 cm at the base of the 5th metatarsal on the lateral aspect with no active purulent drainage, wound base appears to have 75% necrotic eschar with 25% fibrotic on the dorsal rim, minimal serous drainage upon pressing the wound edges, no maceration, no tunneling, (+) probe to bone with exposed extensor tendon, mild malodor, troy- wound erythema noted not extending proximally, clinical suspicion of active infection NEURO: Epicritic and protective sensation grossly intact ORTHO: mild tenderness on palpation of the ulcerated site, Alva's negative, no pain on palpation of the calf, MMT: 5/5 in all 4 directions at the ankle joint - Neurological Exam Neurological Exam: Alert, Awake, Oriented x3 - Psychiatric Exam Psychiatric exam: Normal Affect, Normal Mood Assessment and Plan - Assessment and Plan (Free Text) Assessment: 76 year old male patient seen at bedside for right foot ulceration (thomas 3) Plan: patient evaluated and chart reviewed Plan discussed with attending Dr. Josue Labs, vitals and charts reviewed - afebrile, WBC @ 9.8 X-rays of the right foot ordered/reviewed - Void in the soft tissue with radiolucency at the site of the wound but no presence of soft tissue emphysema. Periosteal giovanna reaction noted at the styloid process of the 5th metatarsal possibly indicating acute OM Wound cultures taken - prelim: gram negative rods Wound cleaned using saline and dressing applied using bactroban, DSD cont. zosyn as per ID Podiatry to follow patient while in house
[2017-04-22] MEDS: HYDROmorphone 1 mg/ml ISec IVP PRN (20:53)
[2017-04-23] MEDS: HYDROmorphone 1 mg/ml ISec IVP PRN (04:13)
[2017-04-23] MEDS: Piperacillin/Tazobact 3.375 GM in Sodium Chloride 100 ML IVPB SCH ×3 (04:15→20:13)
--- NOTE | 2017-04-23 12:01 | CP.PCM.PN ---
Subjective - Date & Time of Evaluation Date of Evaluation: 04/23/17 Time of Evaluation: 10:00 - Subjective Subjective: wound growing enterobacter iv rx in progress cipro added Objective - Vital Signs/Intake and Output Vital Signs (last 24 hours): Temp Pulse Resp BP Pulse Ox 98.5 F 63 20 145/79 97 04/23/17 07:38 04/23/17 07:38 04/23/17 07:38 04/23/17 07:38 04/23/17 07:38 Intake and Output: 04/23/17 04/23/17 06:59 18:59 Intake Total 560 Output Total 2100 Balance -1540 - Medications Medications: Current Medications Aspirin (Ecotrin) 81 mg PO DAILY [facility] Last Admin: 04/23/17 09:05 Dose: 81 mg Glimepiride (Amaryl) 4 mg PO DAILY [facility] Last Admin: 04/23/17 09:05 Dose: 4 mg Heparin Sodium (Porcine) (Heparin) 5,000 units SC Q8 [facility] Last Admin: 04/23/17 05:02 Dose: 5,000 units Hydromorphone HCl (Dilaudid) 1 mg IVP Q4H PRN PRN Reason: pain Last Admin: 04/23/17 04:13 Dose: 1 mg Piperacillin Sod/Tazobactam (Sod 3.375 gm/ Sodium Chloride) 100 mls @ 200 mls/ hr IVPB Q8H [facility] PRN Reason: Protocol Last Admin: 04/23/17 11:44 Dose: 200 mls/hr Lisinopril (Zestril) 5 mg PO DAILY [facility] Last Admin: 04/23/17 09:06 Dose: 5 mg Metformin HCl (Glucophage Xr) 500 mg PO BID [facility] Last Admin: 04/23/17 09:06 Dose: 500 mg Mupirocin (Bactroban Ointment) 1 gm TOP BID [facility] Last Admin: 04/23/17 09:06 Dose: Not Given Pneumococcal Polyvalent Vaccine (Pneumovax 23 Vaccine) 0.5 ml IM .ONCE ONE Stop: 04/24/17 10:01 - Labs Labs: 04/22/17 07:04 04/22/17 07:04 - Constitutional Appears: Non-toxic, Chronically Ill - Head Exam Head Exam: NORMOCEPHALIC - Eye Exam Eye Exam: PERRL - ENT Exam ENT Exam: Mucous Membranes Dry - Neck Exam Neck Exam: absent: Lymphadenopathy - Respiratory Exam Respiratory Exam: Decreased Breath Sounds - Cardiovascular Exam Cardiovascular Exam: REGULAR RHYTHM - GI/Abdominal Exam GI & Abdominal Exam: Distended - Rectal Exam Rectal Exam: Deferred Assessment and Plan (1) Cellulitis Status: Acute (2) Hyperglycemia Status: Acute (3) Non-healing ulcer of foot Status: Acute (4) Hyperglycemia without ketosis Status: Acute (5) Leg pain, bilateral Status: Acute (6) Ulcer Status: Acute - Assessment and Plan (Free Text) Assessment: possible OM for OR possibly later this week
--- NOTE | 2017-04-23 12:09 | VASCLAB ---
PROCEDURE: Lower Extremity Venous Duplex Exam. HISTORY: Edema PRIORS: None. TECHNIQUE: Bilateral common femoral, femoral, popliteal and posterior tibial, peroneal and great saphenous veins were evaluated. Flow was assessed with color Doppler, compressibility, assessment of phasic flow and augmentation response. Report prepared by STEVE Ferraro FINDINGS: RIGHT: 1. Common Femoral Vein: 1.1. Compressibility - Fully compressible: Thrombus - None : Flow - Phasic: Augmentation -Normal: Reflux - None. 2. Femoral Vein: 2.1. Compressibility - Fully compressible: Thrombus - None : Flow - Phasic: Augmentation -Normal: Reflux - None. 3. Popliteal Vein: 3.1. Compressibility - Fully compressible: Thrombus - None : Flow - Phasic: Augmentation -Normal: Reflux - None. 4. Posterior Tibial Vein: 4.1. Compressibility - Fully compressible: Thrombus - None: Flow - Phasic: Augmentation -Normal: Reflux - None. 5. Peroneal Vein: 5.1. Compressibility - Fully compressible: Thrombus - None: Flow - Phasic: Augmentation -Normal: Reflux - None. 6. Great Saphenous Vein: 6.1. Compressibility - Fully compressible: Thrombus - None: Flow - Phasic: Augmentation - Normal: Reflux - None. LEFT: 1. Common Femoral Vein: 1.1. Compressibility - Fully compressible: Thrombus - None: Flow - Phasic: Augmentation -Normal: Reflux - None. 2. Femoral Vein: 2.1. Compressibility - Fully compressible: Thrombus - None: Flow - Phasic: Augmentation -Normal: Reflux - None. 3. Popliteal Vein: 3.1. Compressibility - Fully compressible: Thrombus - None : Flow - Phasic: Augmentation -Normal: Reflux - None. 4. Posterior Tibial Vein: 4.1. Compressibility - Fully compressible: Thrombus - None: Flow - Phasic: Augmentation -Normal: Reflux - None. 5. Peroneal Vein: 5.1. Compressibility - Fully compressible: Thrombus - None: Flow - Phasic: Augmentation -Normal: Reflux - None. 6. Great Saphenous Vein: 6.1. Compressibility - Fully compressible: Thrombus - None: Flow - Phasic: Augmentation - Normal: Reflux - None. OTHER FINDINGS: Right: None significant. Left: None significant. IMPRESSION: Right: No evidence of deep or superficial vein thrombosis of the right lower extremity. Normal valve function noted of the right side. Left: No evidence of deep or superficial vein thrombosis of the left lower extremity. Normal valve function noted of the left side.
--- NOTE | 2017-04-23 12:09 | VASCLAB ---
STUDY DESCRIPTION: HISTORY: Peripheral Artery Disease, Right ulcer PRIORS: None. TECHNIQUE: Pulse volume recording waveforms and segmental pressures of bilateral lower extremities at multiple levels were obtained. Ankle Brachial Indices (ABIs) were calculated. Report prepared by STEVE Ferraro RIGHT LOWER EXTREMITY: * Brachial artery: Pressure - 143 mmHg. * High thigh: Pressure - mmHg: Ratio - : PVR waveform - Pulsatile * Low thigh: Pressure - mmHg: Ratio - PVR waveform: Pulsatile * Calf: Pressure - 163 mmHg: Ratio - 1.14 PVR waveform: Pulsatile * Posterior tibial Artery: Pressure - 123 mmHg: Ratio - 0.86 PVR waveform: Reduced * Dorsalis pedis Artery: Pressure - 90 mmHg: Ratio - 0.63 PVR waveform: Unable to obtain * Great toe: Pressure - absent 0.22 PVR waveform: absent Ankle brachial index (CARA): 0.86 LEFT LOWER EXTREMITY: * Brachial artery: Pressure - 143 mmHg. * High thigh: Pressure - mmHg: Ratio - : PVR waveform - Pulsatile * Low thigh: Pressure - mmHg: Ratio - PVR waveform: Pulsatile * Calf: Pressure - >220 mmHg: Ratio - n/c PVR waveform: Pulsatile * Posterior tibial Artery: Pressure - 110 mmHg: Ratio - 0.77 PVR waveform: Reduced * Dorsalis pedis Artery: Pressure - non audible pulse PVR waveform: Reduced * Great toe: Pressure - 32 mmHg: Ratio - 0.22 PVR waveform: Reduced Ankle brachial index (CARA): 0.77 OTHER FINDINGS: Right foot was dressed, unable to obtain pedal waveform. IMPRESSION: Right: Reduced ankle brachial index of 0.86. Reduced arterial (PVR) waveform at the ankle level. Absent PPG waveform of the right great toe. This exam reveals mild to moderate arterial insufficiency, involving the tibial and distal small arteries. Left: Reduced ankle brachial index of 0.77. Reduced arterial (PVR) waveform at the ankle, pedal and left great toe. This exam reveals mild to moderate arterial insufficiency, involving the tibial and distal small arteries. Recommend CT angiogram.
[2017-04-23] MEDS: Ciprofloxacin 400mg/200ml D5W 400 MG/200 ML BAG IVPB SCH (13:39)
--- NOTE | 2017-04-23 13:48 | CP.PCM.PN ---
Subjective - Date & Time of Evaluation Date of Evaluation: 04/23/17 Time of Evaluation: 08:50 - Subjective Subjective: clinically same Objective - Vital Signs/Intake and Output Vital Signs (last 24 hours): Temp Pulse Resp BP Pulse Ox 98.5 F 63 20 145/79 97 04/23/17 07:38 04/23/17 12:27 04/23/17 07:38 04/23/17 07:38 04/23/17 12:27 Intake and Output: 04/23/17 04/23/17 06:59 18:59 Intake Total 560 Output Total 2100 Balance -1540 - Medications Medications: Current Medications Aspirin (Ecotrin) [address] [facility] Last Admin: 04/23/17 09:05 Dose: 81 mg Glimepiride (Amaryl) [address] [facility] Last Admin: 04/23/17 09:05 Dose: 4 mg Heparin Sodium (Porcine) (Heparin) 5,[address] [facility] Last Admin: 04/23/17 13:44 Dose: 5,000 units Hydromorphone HCl (Dilaudid) 1 mg IVP Q4H PRN PRN Reason: pain Last Admin: 04/23/17 04:13 Dose: 1 mg Piperacillin Sod/Tazobactam (Sod 3.375 gm/ Sodium Chloride) 100 mls @ 200 mls/ hr IVPB Q8H [facility] PRN Reason: Protocol Last Admin: 04/23/17 11:44 Dose: 200 mls/hr Ciprofloxacin (Cipro 400mg/200ml Dsw) 400 mg in 200 mls @ 133 mls/hr IVPB Q12H [facility] PRN Reason: Protocol Last Admin: 04/23/17 13:39 Dose: 133 mls/hr Lisinopril (Zestril) [address] [facility] Last Admin: 04/23/17 09:06 Dose: 5 mg Metformin HCl (Glucophage Xr) [address] [facility] Last Admin: 04/23/17 09:06 Dose: 500 mg Mupirocin (Bactroban Ointment) [address] [facility] Last Admin: 04/23/17 09:06 Dose: Not Given Pneumococcal Polyvalent Vaccine (Pneumovax 23 Vaccine) 0.5 ml IM .ONCE ONE Stop: 04/24/17 10:01 - Labs Labs: 04/22/17 07:04 04/22/17 07:04 - Constitutional Appears: Well - Head Exam Head Exam: ATRAUMATIC, NORMAL INSPECTION, NORMOCEPHALIC - Eye Exam Eye Exam: EOMI, Normal appearance, PERRL Pupil Exam: NORMAL ACCOMODATION, PERRL - ENT Exam ENT Exam: Mucous Membranes Moist, Normal Exam - Neck Exam Neck Exam: Full ROM, Normal Inspection. absent: Lymphadenopathy - Respiratory Exam Respiratory Exam: Decreased Breath Sounds - Cardiovascular Exam Cardiovascular Exam: REGULAR RHYTHM, +S1, +S2 - GI/Abdominal Exam GI & Abdominal Exam: Soft, Diminished Bowel Sounds - Rectal Exam Rectal Exam: Deferred Assessment and Plan - Assessment and Plan (Free Text) Plan: Ankle x-rays done report is pending and Lower extremity ultrasound revealed reduced brachial index also reduced ankle- brachial index Duplex scan lower extremity arterial revealed no evidence of deep or superficial vein thrombosis ID consult Surgical consult Continue IV Cipro Continue local mupirocin Continue IV Zosyn Continue all other medication as ordered Wound care
--- NOTE | 2017-04-23 16:16 | CP.PCM.PN ---
Subjective - Date & Time of Evaluation Date of Evaluation: 04/23/17 Time of Evaluation: 13:47 - Subjective Subjective: Podiatry progress Note: Dr. Josue 76 year old male patient was seen at bedside this afternoon for right lateral decubitus ulceration. Patient had ankle dislocation in February of 2017 which then he was put in a cast. Patient was advised to be non-weight bearing with crutches, but had been walking on it, which then caused the ulcer to form. He complains of mild pain to Right foot at the site of ulceration. Patient of advised of podiatry plan of taking MRI, Vascular study and possible ulcer debridement in the OR. Patient agees with podiatry plan. He denies of any other pedal complaints. Patient denies of having any recent F/N/V/C/SOB/CP/headache. Objective - Vital Signs/Intake and Output Vital Signs (last 24 hours): Temp Pulse Resp BP Pulse Ox 98.5 F 63 20 145/79 97 04/23/17 07:38 04/23/17 12:27 04/23/17 07:38 04/23/17 07:38 04/23/17 12:27 Intake and Output: 04/23/17 04/23/17 06:59 18:59 Intake Total 560 Output Total 2100 Balance -1540 - Medications Medications: Current Medications Aspirin (Ecotrin) 81 mg PO DAILY [facility] Last Admin: 04/23/17 09:05 Dose: 81 mg Glimepiride (Amaryl) 4 mg PO DAILY [facility] Last Admin: 04/23/17 09:05 Dose: 4 mg Heparin Sodium (Porcine) (Heparin) 5,000 units SC Q8 [facility] Last Admin: 04/23/17 13:44 Dose: 5,000 units Hydromorphone HCl (Dilaudid) 1 mg IVP Q4H PRN PRN Reason: pain Last Admin: 04/23/17 04:13 Dose: 1 mg Piperacillin Sod/Tazobactam (Sod 3.375 gm/ Sodium Chloride) 100 mls @ 200 mls/ hr IVPB Q8H [facility] PRN Reason: Protocol Last Admin: 04/23/17 11:44 Dose: 200 mls/hr Ciprofloxacin (Cipro 400mg/200ml Dsw) 400 mg in 200 mls @ 133 mls/hr IVPB Q12H [facility] PRN Reason: Protocol Last Admin: 04/23/17 13:39 Dose: 133 mls/hr Lisinopril (Zestril) 5 mg PO DAILY [facility] Last Admin: 04/23/17 09:06 Dose: 5 mg Metformin HCl (Glucophage Xr) 500 mg PO BID [facility] Last Admin: 04/23/17 09:06 Dose: 500 mg Mupirocin (Bactroban Ointment) 1 gm TOP BID [facility] Last Admin: 04/23/17 09:06 Dose: Not Given Pneumococcal Polyvalent Vaccine (Pneumovax 23 Vaccine) 0.5 ml IM .ONCE ONE Stop: 04/24/17 10:01 - Labs Labs: 04/22/17 07:04 04/22/17 07:04 - Constitutional Appears: Well, Non-toxic, No Acute Distress - Head Exam Head Exam: ATRAUMATIC - Extremities Exam Additional comments: RLE focused exam: DERM: Open wound measuring approx. 2.5 x 1.5cm x <0.1 cm at the base of the 5th metatarsal on the lateral aspect with no active purulent drainage, wound base appears to have 75% necrotic eschar with 25% fibrotic on the dorsal rim, minimal serous drainage upon pressing the wound edges, no maceration, no tunneling, (+) probe to bone with exposed extensor tendon, mild malodor, troy- wound erythema noted not extending proximally, clinical suspicion of active infection VASC: DP/PT pulses are palpable 1/4 . Cap refill time: < 3 seconds to all digits. Skin temperature warm to warm from proximal to distal. mild non-pitting edema noted on on the foot extending to the ankle with accompanied erythema NEURO: Epicritic and protective sensation grossly intact ORTHO: mild tenderness on palpation of the ulcerated site, Alva's negative, no pain on palpation of the calf, MMT: 5/5 in all 4 directions at the ankle joint - Neurological Exam Neurological Exam: Alert, Awake, Oriented x3 - Psychiatric Exam Psychiatric exam: Normal Affect, Normal Mood - Skin Skin Exam: Normal Color, Warm Assessment and Plan - Assessment and Plan (Free Text) Assessment: 76 year old male patient seen at bedside for right foot ulceration (thomas 3) Plan: patient evaluated and chart reviewed Rounded with attending Dr. Josue Labs, vitals and charts reviewed - afebrile X-rays of the right foot ordered/reviewed MRI ordered to r/o OM Vascular consulted; Right CARA 0.86, Left CARA 0.77 with mild to moderate arterial insufficiency WCX: prelim: gram negative rods Wound cleaned using saline and dressing applied using bactroban, DSD cont. zosyn as per ID Podiatry to follow patient while in house
--- NOTE | 2017-04-23 20:53 | CP.PCM.CON ---
History of Present Illness - History of Present Illness History of Present Illness: Vascular Surgery: Dr. rOdonez Pt is a 76M with PMHx of HTN, DM, & HLD who presented to for non-healing ulcer of R lateral foot. Pt has a hx of recent fibular fracture and was placed in a NWB long leg cast, however he was not compliant. Once the cast was removed , pt was found to have a pressure ulcer on the R lateral foot from weight bearing. Pt was placed on PO ABX and finished the course however, the ulcer continue to get infected and pt was sent to the hospital for further treatment. Pt has been placed on IV ABX while in the hospital and podiatry has been consulted to evaluate and treat the infected ulcer. Vascular surgery consult also obtained. Currently, pt states he has pain in his foot around the ulcer but otherwise denies complaints. Denies N/V, F/C, chest pain or SOB. PMHx: as listed PSHx: R fibular fx reduction, Hernia repair SocialHx: denies smoking or EtOH Review of Systems - Review of Systems All systems: reviewed and no additional remarkable complaints except (as per HPI ) Past Patient History - Past Medical History & Family History Past Medical History?: Yes - Past Social History Smoking Status: Former Smoker - CARDIAC Hx Hypercholesterolemia: Yes Hx Hypertension: Yes - PULMONARY Hx Respiratory Disorders: No - NEUROLOGICAL Hx Neurological Disorder: No - HEENT Hx HEENT Problems: No - RENAL Hx Chronic Kidney Disease: No - ENDOCRINE/METABOLIC Hx Endocrine Disorders: Yes Hx Diabetes Mellitus Type 2: Yes - HEMATOLOGICAL/ONCOLOGICAL Hx Blood Disorders: No - INTEGUMENTARY Hx Dermatological Problems: Yes Other/Comment: Right distula fibula ulcer - MUSCULOSKELETAL/RHEUMATOLOGICAL Hx Fractures: Yes (RIGHT Fibula) - GASTROINTESTINAL Hx Gastrointestinal Disorders: No - GENITOURINARY/GYNECOLOGICAL Hx Genitourinary Disorders: No - PSYCHIATRIC Hx Substance Use: No - SURGICAL HISTORY Hx Surgeries: Yes Hx Angiogram: Yes Hx Angioplasty: Yes Hx Herniorrhaphy: Yes - ANESTHESIA Hx Anesthesia: Yes Hx Anesthesia Reactions: No Hx Malignant Hyperthermia: No Meds Allergies/Adverse Reactions: Allergies Allergy/AdvReac Type Severity Reaction Status Date / Time No Known Allergies Allergy Verified 04/21/17 09:41 - Medications Medications: Current Medications Aspirin (Ecotrin) 81 mg PO DAILY [facility] Last Admin: 04/23/17 09:05 Dose: 81 mg Glimepiride (Amaryl) 4 mg PO DAILY [facility] Last Admin: 04/23/17 09:05 Dose: 4 mg Heparin Sodium (Porcine) (Heparin) 5,000 units SC Q8 [facility] Last Admin: 04/23/17 13:44 Dose: 5,000 units Hydromorphone HCl (Dilaudid) 1 mg IVP Q4H PRN PRN Reason: pain Last Admin: 04/23/17 04:13 Dose: 1 mg Piperacillin Sod/Tazobactam (Sod 3.375 gm/ Sodium Chloride) 100 mls @ 200 mls/ hr IVPB Q8H [facility] PRN Reason: Protocol Last Admin: 04/23/17 20:13 Dose: 200 mls/hr Ciprofloxacin (Cipro 400mg/200ml Dsw) 400 mg in 200 mls @ 133 mls/hr IVPB Q12H [facility] PRN Reason: Protocol Last Admin: 04/23/17 13:39 Dose: 133 mls/hr Lisinopril (Zestril) 5 mg PO DAILY [facility] Last Admin: 04/23/17 09:06 Dose: 5 mg Metformin HCl (Glucophage Xr) 500 mg PO BID [facility] Last Admin: 04/23/17 17:34 Dose: 500 mg Mupirocin (Bactroban Ointment) 1 gm TOP BID [facility] Last Admin: 04/23/17 17:37 Dose: Not Given Pneumococcal Polyvalent Vaccine (Pneumovax 23 Vaccine) 0.5 ml IM .ONCE ONE Stop: 04/24/17 10:01 Physical Exam - Constitutional Appears: Well, No Acute Distress - Head Exam Head Exam: ATRAUMATIC, NORMOCEPHALIC - Eye Exam Eye Exam: Normal appearance - ENT Exam ENT Exam: Mucous Membranes Moist - Respiratory Exam Respiratory Exam: NORMAL BREATHING PATTERN - Cardiovascular Exam Cardiovascular Exam: RRR - GI/Abdominal Exam GI & Abdominal Exam: Soft. absent: Distended - Extremities Exam Additional comments: R foot with necrotic ulcer on the lateral dorsal aspect 3x4cm. non-palpable pulses b/l LE - Neurological Exam Neurological exam: Alert, Oriented x3 - Skin Skin Exam: Dry, Warm Results - Vital Signs Recent Vital Signs: Last Vital Signs Temp 98.3 F 04/23/17 15:15 Pulse 76 04/23/17 15:15 Resp 20 04/23/17 15:15 BP 157/88 H 04/23/17 15:15 Pulse Ox 97 04/23/17 15:15 - Labs Result Diagrams: 04/22/17 07:04 04/22/17 07:04 Labs: Laboratory Results - last 24 hr 04/22/17 04/22/17 04/23/17 16:39 21:42 07:14 POC Glucose (mg/dL) 138 H 151 H 145 H 04/23/17 04/23/17 11:16 16:07 POC Glucose (mg/dL) 160 H 209 H Assessment & Plan - Assessment and Plan (Free Text) Assessment: 76M with PVD Plan: - ABIs & PVRs reviewed - obtain CTA with runoff to further evaluate peripheral arterial disease - cont IV ABX per ID recs - f/u MRI of R foot as ordered by podiatry to r/o osteo - d/w Dr. Mery Shepard, PGY-3
[2017-04-24] MEDS: Ciprofloxacin 400mg/200ml D5W 400 MG/200 ML BAG IVPB SCH ×2 (02:00→13:51)
[2017-04-24] MEDS: Piperacillin/Tazobact 3.375 GM in Sodium Chloride 100 ML IVPB SCH ×3 (05:19→19:27)
[2017-04-24] MEDS: HYDROmorphone 1 mg/ml ISec IVP PRN ×4 (05:45→23:20)
--- NOTE | 2017-04-24 08:32 | RAD ---
PROCEDURE: Right Ankle Radiographs. HISTORY: Right ankle pain COMPARISON: 02/24/2017 FINDINGS: BONES: Oblique fracture distal fibula, minimally displaced. No callus. No other fracture identified. Examination limited in that the consists of only two views. JOINTS: Normal. No osteoarthritis. Ankle mortise maintained. Talar dome intact SOFT TISSUES: Normal. OTHER FINDINGS: None. IMPRESSION: Oblique minimally displaced distal fibular fracture without callus.
[2017-04-24] MEDS ORDERED: Pneumococcal 23-Valent Vaccine IM ONE (10:00)
[2017-04-24] MEDS ORDERED: Influenza Vaccine 60 mcg/0.5 mL SYR (4YR UP) IM ONE (10:00)
[2017-04-24] MEDS ORDERED: Iodixanol 320 mg/ml 150 ml Bottle IV ONE ×2 (10:41→10:55)
--- NOTE | 2017-04-24 11:02 | CP.PCM.PN ---
Subjective - Date & Time of Evaluation Date of Evaluation: 04/24/17 Time of Evaluation: 10:00 - Subjective Subjective: Podiatry progress Note: Dr. Josue 76 year old male patient was seen at bedside concerning right lateral decubitus ulceration this AM. Patient is resting in bed, AAOx3, NAD. Dressing to right lower extremity c/d/i. Patient denies of having any recent F/N/V/C/SOB/CP/ headache. Objective - Vital Signs/Intake and Output Vital Signs (last 24 hours): Temp Pulse Resp BP Pulse Ox 98.6 F 83 20 144/78 98 04/24/17 08:17 04/24/17 08:17 04/24/17 08:17 04/24/17 08:17 04/24/17 08:17 Intake and Output: 04/24/17 04/24/17 06:59 18:59 Intake Total 560 Balance 560 - Medications Medications: Current Medications Aspirin (Ecotrin) 81 mg PO DAILY [facility] Last Admin: 04/24/17 10:24 Dose: 81 mg Glimepiride (Amaryl) 4 mg PO DAILY [facility] Last Admin: 04/24/17 10:24 Dose: 4 mg Heparin Sodium (Porcine) (Heparin) 5,000 units SC Q8 [facility] Last Admin: 04/24/17 05:30 Dose: 5,000 units Hydromorphone HCl (Dilaudid) 1 mg IVP Q4H PRN PRN Reason: pain Last Admin: 04/24/17 10:25 Dose: 1 mg Piperacillin Sod/Tazobactam (Sod 3.375 gm/ Sodium Chloride) 100 mls @ 200 mls/ hr IVPB Q8H [facility] PRN Reason: Protocol Last Admin: 04/24/17 05:19 Dose: 200 mls/hr Ciprofloxacin (Cipro 400mg/200ml Dsw) 400 mg in 200 mls @ 133 mls/hr IVPB Q12H [facility] PRN Reason: Protocol Last Admin: 04/24/17 02:00 Dose: 133 mls/hr Lisinopril (Zestril) 5 mg PO DAILY [facility] Last Admin: 04/24/17 10:24 Dose: 5 mg Metformin HCl (Glucophage Xr) 500 mg PO BID [facility] Last Admin: 04/24/17 10:24 Dose: 500 mg Mupirocin (Bactroban Ointment) 1 gm TOP BID [facility] Last Admin: 04/24/17 10:29 Dose: Not Given - Labs Labs: 04/22/17 07:04 04/22/17 07:04 - Constitutional Appears: Well, Non-toxic, No Acute Distress - Head Exam Head Exam: ATRAUMATIC - Extremities Exam Additional comments: RLE focused exam: DERM: Open wound measuring approx. 2.5 x 1.5cm x <0.1 cm at the base of the 5th metatarsal on the lateral aspect with no active purulent drainage, wound base appears to have 75% necrotic eschar with 25% fibrotic on the dorsal rim, minimal serous drainage upon pressing the wound edges, no maceration, no tunneling, (+) probe to bone with exposed extensor tendon, mild malodor, troy- wound erythema noted not extending proximally, clinical suspicion of active infection VASC: DP/PT pulses are palpable 1/4 . Cap refill time: < 3 seconds to all digits. Skin temperature warm to warm from proximal to distal. mild non-pitting edema noted on on the foot extending to the ankle with accompanied erythema NEURO: Epicritic and protective sensation grossly intact ORTHO: mild tenderness on palpation of the ulcerated site, Alva's negative, no pain on palpation of the calf, MMT: 5/5 in all 4 directions at the ankle joint - Neurological Exam Neurological Exam: Alert, Awake, Oriented x3 - Psychiatric Exam Psychiatric exam: Normal Affect, Normal Mood Assessment and Plan - Assessment and Plan (Free Text) Assessment: 76 year old male patient seen at bedside for right foot ulceration (thomas 3) Plan: patient evaluated and chart reviewed Rounded with attending Dr. Josue Labs, vitals and charts reviewed - afebrile X-rays of the right foot ordered/reviewed MRI result pending Vascular note appreciated; CTA pending WCX: Final- enterobacter cloacae Wound cleaned using saline and dressing applied using bactroban, DSD cont. zosyn as per ID Podiatry to follow patient while in house
--- NOTE | 2017-04-24 12:16 | CP.PCM.PN ---
Subjective - Date & Time of Evaluation Date of Evaluation: 04/24/17 Time of Evaluation: 08:00 - Subjective Subjective: iv rx in progress wound probes to bone mri and CTA pending IV rx reordered Objective - Vital Signs/Intake and Output Vital Signs (last 24 hours): Temp Pulse Resp BP Pulse Ox 98.6 F 83 20 144/78 98 04/24/17 08:17 04/24/17 08:17 04/24/17 08:17 04/24/17 08:17 04/24/17 08:17 Intake and Output: 04/24/17 04/24/17 06:59 18:59 Intake Total 560 Balance 560 - Medications Medications: Current Medications Aspirin (Ecotrin) 81 mg PO DAILY [facility] Last Admin: 04/24/17 10:24 Dose: 81 mg Glimepiride (Amaryl) 4 mg PO DAILY [facility] Last Admin: 04/24/17 10:24 Dose: 4 mg Heparin Sodium (Porcine) (Heparin) 5,000 units SC Q8 [facility] Last Admin: 04/24/17 05:30 Dose: 5,000 units Hydromorphone HCl (Dilaudid) 1 mg IVP Q4H PRN PRN Reason: pain Last Admin: 04/24/17 10:25 Dose: 1 mg Piperacillin Sod/Tazobactam (Sod 3.375 gm/ Sodium Chloride) 100 mls @ 200 mls/ hr IVPB Q8H [facility] PRN Reason: Protocol Last Admin: 04/24/17 05:19 Dose: 200 mls/hr Ciprofloxacin (Cipro 400mg/200ml Dsw) 400 mg in 200 mls @ 133 mls/hr IVPB Q12H [facility] PRN Reason: Protocol Last Admin: 04/24/17 02:00 Dose: 133 mls/hr Lisinopril (Zestril) 5 mg PO DAILY [facility] Last Admin: 04/24/17 10:24 Dose: 5 mg Metformin HCl (Glucophage Xr) 500 mg PO BID [facility] Last Admin: 04/24/17 10:24 Dose: 500 mg Mupirocin (Bactroban Ointment) 1 gm TOP BID [facility] Last Admin: 04/24/17 10:29 Dose: Not Given - Labs Labs: 04/22/17 07:04 04/22/17 07:04 - Constitutional Appears: Non-toxic - Head Exam Head Exam: NORMOCEPHALIC - Eye Exam Eye Exam: PERRL - ENT Exam ENT Exam: Mucous Membranes Dry - Neck Exam Neck Exam: absent: Lymphadenopathy - Respiratory Exam Respiratory Exam: Decreased Breath Sounds - Cardiovascular Exam Cardiovascular Exam: REGULAR RHYTHM - GI/Abdominal Exam GI & Abdominal Exam: Distended - Rectal Exam Rectal Exam: Deferred - Exam Exam: NORMAL INSPECTION - Extremities Exam Extremities Exam: Pedal Edema - Back Exam Back Exam: absent: CVA tenderness (L), CVA tenderness (R) - Neurological Exam Neurological Exam: Alert, Awake - Psychiatric Exam Psychiatric exam: Normal Mood - Skin Skin Exam: Dry - Additional Findings Additional findings: right foot : Open wound measuring approx. 2.5 x 1.5cm x <0.1 cm at the base of the 5th metatarsal on the lateral aspect with no active purulent drainage, wound base appears to have 75% necrotic eschar with 25% fibrotic on the dorsal rim, minimal serous drainage upon pressing the wound edges, no maceration, no tunneling, (+) probe to bone with exposed extensor tendon, mild malodor, troy- wound erythema noted not extending proximally, clinical suspicion of active infection VASC: DP/PT pulses are palpable 1/4 . Cap refill time: < 3 seconds to all digits. Skin temperature warm to warm from proximal to distal. mild non-pitting edema noted on on the foot extending to the ankle with accompanied erythema NEURO: Epicritic and protective sensation grossly intact ORTHO: mild tenderness on palpation of the ulcerated site, Alva's negative, no pain on palpation of the calf, MMT: 5/5 in all 4 directions at the ankle joint Assessment and Plan (1) Cellulitis Status: Acute (2) Hyperglycemia Status: Acute (3) Non-healing ulcer of foot Status: Acute (4) Hyperglycemia without ketosis Status: Acute (5) Leg pain, bilateral Status: Acute (6) Ulcer Status: Acute (7) Osteomyelitis Status: Acute - Assessment and Plan (Free Text) Assessment: cont iv rx await MRI and CTA possible OR
--- NOTE | 2017-04-24 13:11 | CT ---
PROCEDURE: CT Angiography Abdomen, Pelvis and Lower Extremity with Contrast HISTORY: non-healing R foot ulcer COMPARISON: None. TECHNIQUE: Technique: CT angiography of the abdomen, pelvis and bilateral lower extremities performed in the arterial phase of enhancement. Coronal and sagittal reformats, and well as rotating MIP images of the vessels generated at the workstation. Intravenous contrast dose: 150 milliliters Visipaque 320 Radiation dose: Total exam DLP = 1795.23 MGy-cm. This CT exam was performed using one or more of the following dose reduction techniques: Automated exposure control, adjustment of the mA and/or kV according to patient size, and/or use of iterative reconstruction technique. FINDINGS: CT ANGIOGRAPHY: ABDOMINAL AORTA:: Unremarkable MAJOR AORTIC BRANCHES: Celiac [place]: Unremarkable. Superior mesenteric artery: Unremarkable. Inferior mesenteric artery: Unremarkable. Renal arteries: Unremarkable. PELVIC ARTERIES: Right Common Iliac: Unremarkable. Right External Iliac: Unremarkable. Right Internal Iliac: Unremarkable. Left Common Iliac: Unremarkable. Left External Iliac: Unremarkable. Left Internal Iliac: Unremarkable. RIGHT LOWER EXTREMITY ARTERIES: Right Common Femoral: Moderate calcific plaque and moderate stenosis of the common femoral artery Right Superficial Femoral: Moderate stenosis at the origin of the SFA. Remainder of the SFA has mild plaque with no significant stenosis. Right Profunda Femoris: Moderate stenosis of the profunda femoral artery. Right Popliteal:Moderate stenosis throughout the popliteal artery. Right Anterior Tibial: Heavily calcified and has multiple segments of either severe stenosis or occlusion in the proximal segment mid segment distal segment. Right Tibioperoneal Trunk: Unremarkable. Right Posterior Tibial: Heavily calcified and also has multiple segments of severe stenosis. Possible occlusion in the mid segment Right Peroneal: Calcified and has multiple segments of mild severe stenosis. Believed to be patent. Right dorsalis pedis : Unremarkable. LEFT LOWER EXTREMITY ARTERIES: Left Common Femoral: Mild calcific plaque with no significant stenosis. Left Superficial Femoral: Calcific plaque in a rib mild severe stenosis and distal SFA. Left Profunda Femoris: Unremarkable. Left Popliteal: Stenosis of the popliteal artery per Left Anterior Tibial: Early calcified which limits evaluation. Possible occlusion or severe stenosis in the proximal and mid segments. Left Tibioperoneal Trunk: Unremarkable. Left Posterior Tibial: Moderate calcific throughout which limits its evaluation. Believed to be patent. Left Peroneal: Calcific plaque in the proximal segment. Mid and distal segments are unremarkable. Left Dorsalis pedis: Unremarkable. NON-ANGIOGRAPHIC ASPECT OF THE EXAM: LOWER THORAX: Unremarkable. LIVER: Unremarkable. No gross lesion or ductal dilatation. GALLBLADDER AND BILE DUCTS: Unremarkable. PANCREAS: Unremarkable. No gross lesion or ductal dilatation. SPLEEN: Multiple splenules. May represent splenosis. ADRENALS: Unremarkable. No mass. KIDNEYS AND URETERS: Unremarkable. No hydronephrosis. No solid mass. STOMACH AND BOWEL: Unremarkable. No obstruction. No gross mural thickening. APPENDIX: Normal appendix. PERITONEUM: Multiple peritoneal cyst. These are larger than study from 06/08/2012. LYMPH NODES: Unremarkable. No enlarged lymph nodes. BLADDER: Unremarkable. REPRODUCTIVE: Unremarkable. BONES: No acute fracture. OTHER FINDINGS: None. IMPRESSION: CT ANGIOGRAM ABDOMEN/PELVIS: 1. Unremarkable CT angiogram of the abdomen pelvis. RIGHT LOWER EXTREMITY CT ANGIOGRAM: 1. Moderate stenosis of the common femoral artery. 2. Moderate stenosis of the origin of the SFA. 3. On the popliteal artery stenosis. 4. The tibial vessels are heavily calcified which limits evaluation. Possible areas of severe stenosis and/or occlusion within the anterior tibial artery posterior tibial artery and peroneal artery LOWER EXTREMITY CT ANGIOGRAM: 1. Common femoral artery is unremarkable. 2. Moderate stenosis of the distal SFA. 3. Moderate stenosis of popliteal artery. 4. The tibial vessels showed possible occlusion or severe stenosis of the proximal anterior tibial artery. The peroneal artery is a heavily calcified proximally but is otherwise unremarkable. The posterior tibial is calcified but is believed to be patent.
[2017-04-24 14:49] LABS: PROTHROMBIN TIME 11.2 SECONDS (9.7-12.2)
--- NOTE | 2017-04-24 16:24 | CP.PCM.PN ---
Subjective - Date & Time of Evaluation Date of Evaluation: 04/24/17 Time of Evaluation: 06:35 - Subjective Subjective: Vasc Sx: Dr Ordonez Pt S&E. Imaging reviewed with attending and d/w pt. Continues to have pain in RLE at site of non-healing foot ulcer. Pt understands need for diagnostic angiography. Agrees for procedure tomorrow. Objective - Vital Signs/Intake and Output Vital Signs (last 24 hours): Temp Pulse Resp BP Pulse Ox 98.6 F 83 20 144/78 98 04/24/17 08:17 04/24/17 08:17 04/24/17 08:17 04/24/17 08:17 04/24/17 08:17 Intake and Output: 04/24/17 04/24/17 06:59 18:59 Intake Total 1060 Balance 1060 - Medications Medications: Current Medications Aspirin (Ecotrin) 81 mg PO DAILY [facility] Last Admin: 04/24/17 10:24 Dose: 81 mg Glimepiride (Amaryl) 4 mg PO DAILY [facility] Last Admin: 04/24/17 10:24 Dose: 4 mg Heparin Sodium (Porcine) (Heparin) 5,000 units SC Q8 [facility] Last Admin: 04/24/17 13:56 Dose: 5,000 units Hydromorphone HCl (Dilaudid) 1 mg IVP Q4H PRN PRN Reason: pain Last Admin: 04/24/17 10:25 Dose: 1 mg Piperacillin Sod/Tazobactam (Sod 3.375 gm/ Sodium Chloride) 100 mls @ 200 mls/ hr IVPB Q8H [facility] PRN Reason: Protocol Last Admin: 04/24/17 12:31 Dose: 200 mls/hr Ciprofloxacin (Cipro 400mg/200ml Dsw) 400 mg in 200 mls @ 133 mls/hr IVPB Q12H [facility] PRN Reason: Protocol Last Admin: 04/24/17 13:51 Dose: 133 mls/hr Lisinopril (Zestril) 5 mg PO DAILY [facility] Last Admin: 04/24/17 10:24 Dose: 5 mg Metformin HCl (Glucophage Xr) 500 mg PO BID [facility] Last Admin: 04/24/17 10:24 Dose: 500 mg Mupirocin (Bactroban Ointment) 1 gm TOP BID [facility] Last Admin: 04/24/17 10:29 Dose: Not Given - Labs Labs: 04/22/17 07:04 04/22/17 07:04 PT 11.2 SECONDS (9.7-12.2) 04/24/17 14:38 INR 1.0 04/24/17 14:38 APTT 32 SECONDS (21-34) 04/24/17 14:38 - Constitutional Appears: Non-toxic, No Acute Distress - Eye Exam Eye Exam: Normal appearance - Respiratory Exam Respiratory Exam: absent: Accessory Muscle Use, Respiratory Distress - GI/Abdominal Exam GI & Abdominal Exam: Soft. absent: Tenderness - Extremities Exam Additional comments: palpable femoral pulses b/l no palpable popliteal 2x4 non healing ulcer to lateral aspect of right foot - Neurological Exam Neurological Exam: Alert, Awake, Oriented x3 - Psychiatric Exam Psychiatric exam: Normal Affect, Normal Mood - Skin Skin Exam: Normal Color, Warm Assessment and Plan - Assessment and Plan (Free Text) Assessment: 76M with non-healing ulcer to right foot Plan: pt for selective angiography w/ potential intervention tomorrow NPO @ [place] d/w Dr Mery Regalado, PGY3
--- NOTE | 2017-04-24 17:14 | CP.PCM.PN ---
Subjective - Date & Time of Evaluation Date of Evaluation: 04/24/17 Time of Evaluation: 07:40 - Subjective Subjective: clinically same Objective - Vital Signs/Intake and Output Vital Signs (last 24 hours): Temp Pulse Resp BP Pulse Ox 97.6 F 72 20 136/79 95 04/24/17 16:00 04/24/17 16:00 04/24/17 16:00 04/24/17 16:00 04/24/17 16:00 Intake and Output: 04/24/17 04/24/17 06:59 18:59 Intake Total 1060 Balance 1060 - Medications Medications: Current Medications Aspirin (Ecotrin) 81 mg PO DAILY [facility] Last Admin: 04/24/17 10:24 Dose: 81 mg Glimepiride (Amaryl) 4 mg PO DAILY [facility] Last Admin: 04/24/17 10:24 Dose: 4 mg Heparin Sodium (Porcine) (Heparin) 5,000 units SC Q8 [facility] Last Admin: 04/24/17 13:56 Dose: 5,000 units Hydromorphone HCl (Dilaudid) 1 mg IVP Q4H PRN PRN Reason: pain Last Admin: 04/24/17 10:25 Dose: 1 mg Piperacillin Sod/Tazobactam (Sod 3.375 gm/ Sodium Chloride) 100 mls @ 200 mls/ hr IVPB Q8H [facility] PRN Reason: Protocol Last Admin: 04/24/17 12:31 Dose: 200 mls/hr Ciprofloxacin (Cipro 400mg/200ml Dsw) 400 mg in 200 mls @ 133 mls/hr IVPB Q12H [facility] PRN Reason: Protocol Last Admin: 04/24/17 13:51 Dose: 133 mls/hr Lisinopril (Zestril) 5 mg PO DAILY [facility] Last Admin: 04/24/17 10:24 Dose: 5 mg Metformin HCl (Glucophage Xr) 500 mg PO BID [facility] Last Admin: 04/24/17 10:24 Dose: 500 mg Mupirocin (Bactroban Ointment) 1 gm TOP BID [facility] Last Admin: 04/24/17 10:29 Dose: Not Given - Labs Labs: 04/22/17 07:04 04/22/17 07:04 PT 11.2 SECONDS (9.7-12.2) 04/24/17 14:38 INR 1.0 04/24/17 14:38 APTT 32 SECONDS (21-34) 04/24/17 14:38 - Constitutional Appears: Well - Head Exam Head Exam: ATRAUMATIC, NORMAL INSPECTION, NORMOCEPHALIC - Eye Exam Eye Exam: EOMI, Normal appearance, PERRL Pupil Exam: NORMAL ACCOMODATION, PERRL - ENT Exam ENT Exam: Mucous Membranes Moist, Normal Exam - Neck Exam Neck Exam: Full ROM, Normal Inspection. absent: Lymphadenopathy - Respiratory Exam Respiratory Exam: Decreased Breath Sounds - Cardiovascular Exam Cardiovascular Exam: REGULAR RHYTHM, +S1, +S2 - GI/Abdominal Exam GI & Abdominal Exam: Soft, Diminished Bowel Sounds - Rectal Exam Rectal Exam: Deferred Assessment and Plan - Assessment and Plan (Free Text) Plan: Continue Cipro Continue on Zosyn Follow-up with ID Follow-up with the vascular surgery Doppler done Lower extremity MRI report pending Angiogram of the abdomen full report is in the chart with the moderate stenosis of distal SFA moderate stenosis and popliteal and tibial vessels with possible occlusion or severe stenosis of proximal anterior tibial artery Follow-up with the vascular surgeryStatus post a vascular Doppler revealing peripheral arterial disease Follow-up with vascular surgery Follow-up with ID Follow-up with the podiatry MRI Ordered Angiography Continue as ordered
[2017-04-25] MEDS: Ciprofloxacin 400mg/200ml D5W 400 MG/200 ML BAG IVPB SCH ×2 (00:03→12:49)
[2017-04-25] MEDS: HYDROmorphone 1 mg/ml ISec IVP PRN ×2 (07:52→21:34)
[2017-04-25 08:18] LABS: BASO # 0.1 K/uL (0.0-0.2); EOS # 0.1 K/uL (0.0-0.7); EOS % 1.1 % (0.0-4.0); HEMOGLOBIN 13.2 g/dL (12.0-18.0); LYMPH % 22.5 % (20.0-40.0); MEAN CELL VOLUME 91.8 fL (80.0-94.0); MEAN CORPUSCULAR HEMOGLOBIN 31.6 pg (27.0-31.0); MEAN CORPUSCULAR HGB CONC 34.4 g/dL (33.0-37.0); MEAN PLATELET VOLUME 8.1 fL (7.2-11.7); MONO # 0.7 K/uL (0.0-0.8); MONO % 8.3 % (0.0-10.0); NEUT # 5.8 K/uL (1.8-7.0); NEUT % 67.1 % (50.0-75.0); RBC 4.17 Mil/uL (4.40-5.90); RED CELL DISTRIBUTION WIDTH 13.3 % (11.5-14.5); WHITE BLOOD COUNT 8.7 K/uL (4.8-10.8)
[2017-04-25 08:33] LABS: ALBUMIN 3.7 g/dL (3.5-5.0); ALT/SGPT 34 U/L (21-72); AST/SGOT 21 U/L (17-59); BLOOD UREA NITROGEN 24 mg/dL (9-20); GFR AFRICAN-AMERICAN > 60; GFR NON-AFRICAN AMERICAN > 60
[2017-04-25] MEDS ORDERED: Midazolam 2 MG/2 ML VIAL ONE (09:35)
[2017-04-25] MEDS ORDERED: Iodixanol 320 MG/ML 200 ML BOTTLE IV ONE ×2 (09:47→10:29)
[2017-04-25] MEDS ORDERED: Nitroglycerin 50mg in D5W 50 MG/250 ML BOTTLE IV ONE (10:19)
[2017-04-25] MEDS ORDERED: Verapamil 2 ML ONE (10:19)
--- NOTE | 2017-04-25 11:21 | PCM.SURG1 ---
Surgeon's Initial Post Op Note - Surgeon's Notes Surgeon: dar Ceramic Tiler: 0 Type of Anesthesia: IV Sedation Anesthesia Administered By: valeria/avtar Pre-Operative Diagnosis: gangrene right foot Operative Findings: severe disease common femoral artery on right. severe tibial disease with small posterior tibial as major target vessel in foot. small dorsalis pedis Post-Operative Diagnosis: same Operation Performed: aortofemoral angiogram. selective catherization of right femoral artery. atherectomy (CSI 2.0) of common femoral with 6 mm balloon angioplasty. balloon angioplasty 3mm to tibio peroneal trunk. perclose left groin Specimen/Specimens Removed: 0 Estimated Blood Loss: EBL {In ML}: 50 Blood Products Given: N/A Drains Used: No Drains Post-Op Condition: Good Date of Surgery/Procedure: 04/25/17 Time of Surgery/Procedure: 11:22
--- NOTE | 2017-04-25 12:15 | CARD ---
APPROVED REPORT EKG Measurement Heart [id number] LA 138P [id number] <Conclusion> Normal sinus rhythm Right superior axis deviation Nonspecific ST and T wave abnormality Abnormal ECG
[2017-04-25] MEDS: Dextrose 5%/0.45% NS 1,000 ML IV SCH ×4 (12:24→23:44)
--- NOTE | 2017-04-25 15:50 | CP.PCM.PN ---
Subjective - Date & Time of Evaluation Date of Evaluation: 04/25/17 Time of Evaluation: 08:00 - Subjective Subjective: iv rx in progress wound probes to bone S/P ANGIOPLASTY RIGHT LEG TO DISCUSS POSSIBLE DEBRIDEMENT CONT IV ANTIBIOTICS Objective - Vital Signs/Intake and Output Vital Signs (last 24 hours): Temp Pulse Resp BP Pulse Ox 98.1 F 73 20 157/73 H 97 04/25/17 15:00 04/25/17 15:00 04/25/17 15:00 04/25/17 15:00 04/25/17 15:00 Intake and Output: 04/25/17 04/25/17 06:59 18:59 Intake Total 780 800 Balance 780 800 - Medications Medications: Current Medications Aspirin (Ecotrin) 81 mg PO DAILY [facility] Last Admin: 04/25/17 11:00 Dose: Not Given Glimepiride (Amaryl) 4 mg PO DAILY [facility] Last Admin: 04/25/17 11:00 Dose: Not Given Heparin Sodium (Porcine) (Heparin) 5,000 units SC Q8 [facility] Last Admin: 04/25/17 13:00 Dose: Not Given Hydromorphone HCl (Dilaudid) 1 mg IVP Q4H PRN PRN Reason: pain Last Admin: 04/25/17 07:52 Dose: 1 mg Ciprofloxacin (Cipro 400mg/200ml Dsw) 400 mg in 200 mls @ 133 mls/hr IVPB Q12H [facility] PRN Reason: Protocol Last Admin: 04/25/17 12:49 Dose: 133 mls/hr Dextrose/Sodium Chloride (Dextrose 5%/0.45% Ns 1000 Ml) 1,000 mls @ 100 mls/hr IV .Q10H [facility] Last Admin: 04/25/17 12:50 Dose: 100 mls/hr Lisinopril (Zestril) 5 mg PO DAILY [facility] Last Admin: 04/25/17 11:00 Dose: Not Given Metformin HCl (Glucophage Xr) 500 mg PO BID [facility] Last Admin: 04/24/17 10:24 Dose: 500 mg Mupirocin (Bactroban Ointment) 1 gm TOP BID [facility] Last Admin: 04/25/17 11:00 Dose: Not Given - Labs Labs: 04/25/17 08:08 04/25/17 08:08 PT 11.2 SECONDS (9.7-12.2) 04/24/17 14:38 INR 1.0 04/24/17 14:38 APTT 32 SECONDS (21-34) 04/24/17 14:38 - Constitutional Appears: Non-toxic, Chronically Ill - Head Exam Head Exam: NORMOCEPHALIC - Eye Exam Eye Exam: PERRL. absent: Scleral icterus - ENT Exam ENT Exam: Mucous Membranes Dry - Neck Exam Neck Exam: absent: Lymphadenopathy - Respiratory Exam Respiratory Exam: Decreased Breath Sounds - Cardiovascular Exam Cardiovascular Exam: REGULAR RHYTHM - GI/Abdominal Exam GI & Abdominal Exam: Distended - Rectal Exam Rectal Exam: Deferred - Exam Exam: NORMAL INSPECTION - Extremities Exam Extremities Exam: Tenderness. absent: Calf Tenderness, Pedal Edema - Back Exam Back Exam: absent: CVA tenderness (L), CVA tenderness (R) Assessment and Plan (1) Cellulitis Status: Acute (2) Hyperglycemia Status: Acute (3) Non-healing ulcer of foot Status: Acute (4) Hyperglycemia without ketosis Status: Acute (5) Leg pain, bilateral Status: Acute (6) Ulcer Status: Acute (7) Osteomyelitis Status: Acute - Assessment and Plan (Free Text) Assessment: CONT IV RX AND WOUND CARE POSSIBLE OR
--- NOTE | 2017-04-25 18:31 | CP.PCM.PN ---
Subjective - Date & Time of Evaluation Date of Evaluation: 04/25/17 Time of Evaluation: 07:40 - Subjective Subjective: clinically same Objective - Vital Signs/Intake and Output Vital Signs (last 24 hours): Temp Pulse Resp BP Pulse Ox 98.1 F 73 20 157/73 H 97 04/25/17 15:00 04/25/17 15:00 04/25/17 15:00 04/25/17 15:00 04/25/17 15:00 Intake and Output: 04/25/17 04/25/17 06:59 18:59 Intake Total 780 800 Balance 780 800 - Medications Medications: Current Medications Aspirin (Ecotrin) 81 mg PO DAILY [facility] Last Admin: 04/25/17 11:00 Dose: Not Given Glimepiride (Amaryl) 4 mg PO DAILY [facility] Last Admin: 04/25/17 11:00 Dose: Not Given Heparin Sodium (Porcine) (Heparin) 5,000 units SC Q8 [facility] Last Admin: 04/25/17 13:00 Dose: Not Given Hydromorphone HCl (Dilaudid) 1 mg IVP Q4H PRN PRN Reason: pain Last Admin: 04/25/17 07:52 Dose: 1 mg Ciprofloxacin (Cipro 400mg/200ml Dsw) 400 mg in 200 mls @ 133 mls/hr IVPB Q12H [facility] PRN Reason: Protocol Last Admin: 04/25/17 12:49 Dose: 133 mls/hr Dextrose/Sodium Chloride (Dextrose 5%/0.45% Ns 1000 Ml) 1,000 mls @ 100 mls/hr IV .Q10H [facility] Last Admin: 04/25/17 12:50 Dose: 100 mls/hr Lisinopril (Zestril) 5 mg PO DAILY [facility] Last Admin: 04/25/17 11:00 Dose: Not Given Metformin HCl (Glucophage Xr) 500 mg PO BID [facility] Last Admin: 04/24/17 10:24 Dose: 500 mg Mupirocin (Bactroban Ointment) 1 gm TOP BID [facility] Last Admin: 04/25/17 18:09 Dose: Not Given - Labs Labs: 04/25/17 08:08 04/25/17 08:08 PT 11.2 SECONDS (9.7-12.2) 04/24/17 14:38 INR 1.0 04/24/17 14:38 APTT 32 SECONDS (21-34) 04/24/17 14:38 - Constitutional Appears: Well - Head Exam Head Exam: ATRAUMATIC, NORMAL INSPECTION, NORMOCEPHALIC - Eye Exam Eye Exam: EOMI, Normal appearance, PERRL Pupil Exam: NORMAL ACCOMODATION, PERRL - ENT Exam ENT Exam: Mucous Membranes Moist, Normal Exam - Neck Exam Neck Exam: Full ROM, Normal Inspection. absent: Lymphadenopathy - Respiratory Exam Respiratory Exam: Decreased Breath Sounds - Cardiovascular Exam Cardiovascular Exam: REGULAR RHYTHM, +S1, +S2 - GI/Abdominal Exam GI & Abdominal Exam: Soft, Diminished Bowel Sounds - Rectal Exam Rectal Exam: Deferred Assessment and Plan - Assessment and Plan (Free Text) Plan: Post angiogram on the right foot found to have a severe disease common femoral artery on the right side with the severe tibial disease with small posterior tibial as a major target vessel in the foot small dorsalis pedis Patient underwent balloon angioplasty of the common femoral level Discussed with the patient's Follow-up with the ID Continue IV antibiotic Follow-up with the instruments sales representative Monitor CBC CMP
[2017-04-26] MEDS: Ciprofloxacin 400mg/200ml D5W 400 MG/200 ML BAG IVPB SCH ×2 (00:12→12:10)
[2017-04-26] MEDS: HYDROmorphone 1 mg/ml ISec IVP PRN ×6 (01:35→21:41)
[2017-04-26] MEDS: Dextrose 5%/0.45% NS 1,000 ML IV SCH (06:40)
[2017-04-26 07:27] LABS: HEMOGLOBIN 12.6 g/dL (12.0-18.0); MEAN CELL VOLUME 91.5 fL (80.0-94.0); MEAN CORPUSCULAR HEMOGLOBIN 31.2 pg (27.0-31.0); MEAN CORPUSCULAR HGB CONC 34.1 g/dL (33.0-37.0); RBC 4.06 Mil/uL (4.40-5.90); RED CELL DISTRIBUTION WIDTH 13.2 % (11.5-14.5); WHITE BLOOD COUNT 6.9 K/uL (4.8-10.8)
[2017-04-26 07:41] LABS: ALB/GLOB RATIO 1.1 (1.0-2.1); ALBUMIN 3.5 g/dL (3.5-5.0); ALT/SGPT 33 U/L (21-72); AST/SGOT 27 U/L (17-59); BLOOD UREA NITROGEN 21 mg/dL (9-20); CALCIUM 8.7 mg/dl (8.6-10.4); GFR AFRICAN-AMERICAN > 60; GFR NON-AFRICAN AMERICAN > 60
--- NOTE | 2017-04-26 09:43 | OP ---
DATE: 04/25/2017 PREOPERATIVE DIAGNOSIS: Gangrene in the right foot. PROCEDURE CARRIED OUT: 1. Aortofemoral angiogram via left groin with selective catheterization of right femoral artery and balloon angioplasty of the right tibioperoneal trunk. 2. Atherectomy using a CSI device 2 mm and a 6 mm balloon, atherectomy and balloon angioplasty of the right common femoral artery. SURGEON: Erik Ordonez Jr., MD TECHNOLOGY DIRECTOR: None. ANESTHESIOLOGIST: Dr. Ferrer and Dr. Bishop. INDICATIONS: The patient is a 76-year-old male, diabetic, and ischemic ulcer in the lateral portion of the right foot. OPERATIVE FINDINGS: The aorta renal arteries, common iliac arteries, external iliac arteries were all widely patent without any evidence of significant occlusive disease. On the right side, there were multiple areas of ulcerated plaque at the mid portion of the common femoral artery. The left side appeared normal and the femoris is widely patent. On the left side, the superficial femoral artery down to the tibial trifurcation, below this the vessels were not well visualized. On the right side, the superficial femoral artery and popliteal artery were widely patent. The below-knee popliteal artery in the tibial trifurcation, initially the vessels were opened, however, these were also occluded, the anterior tibial, tibioperoneal trunk, peroneal, and the posterior tibial. Distally, there is reconstitution only of a very small dorsalis pedis artery and a diseased posterior tibial artery. Subsequent to the performance of the diagnostic arteriogram, a stiff-angled guidewire was advanced over the aortic bifurcation and attempts were made to cannulate anterior tibial artery which were unsuccessful, posterior tibial artery which did not and there was a high grade of 90% stenosis in tibioperoneal trunk which was ballooned. However, the cosmetic pictures after this was done were not of much change from the original picture. We placed a long 7-Israeli sheath, which we placed after we have given heparin, and we then placed a small 6 mm sheath, used a CSI device to atherectomize the polypoid lesion of the common femoral artery. This was moderately successful. It was subsequently dilated with 6 mm balloon. With the final cosmetic result, it was improved but not completely resolved. We then terminated the procedure and deployed Perclose device in the groin. PROCEDURE CARRIED OUT: 1. Aortofemoral angiogram via left groin selective catheterization of right femoral artery. 2. CSI atherectomy and balloon angioplasty of the right common femoral artery. The blood loss for the procedure was 25 mL, and there were no operative complications. Overall, the patient has a dismal prognosis as there is no real good target vessel on the leg. Vein mapping will be ordered in attempt to clarify situation to see if there is a conduit available. Erik Ordonez Jr., MD cc: Dr. Josue. Tawanna Tello MD
--- NOTE | 2017-04-26 10:27 | CP.PCM.PN ---
Subjective - Date & Time of Evaluation Date of Evaluation: 04/26/17 Time of Evaluation: 10:23 - Subjective Subjective: Surgery: Dr. Ordonez Pt seen and examined. No acute overnight events. Pt states he feels ok but feels a throbbing sensation in his R leg/foot. Denies other complaints at this time. No fevers/chills overnight. Objective - Vital Signs/Intake and Output Vital Signs (last 24 hours): Temp Pulse Resp BP Pulse Ox 98.2 F 64 20 133/59 L 96 04/26/17 08:00 04/26/17 08:00 04/26/17 08:00 04/26/17 08:00 04/26/17 08:00 Intake and Output: 04/26/17 04/26/17 06:59 18:59 Intake Total 1780 Balance 1780 - Medications Medications: Current Medications Aspirin (Ecotrin) 81 mg PO DAILY [facility] Last Admin: 04/26/17 09:37 Dose: 81 mg Glimepiride (Amaryl) 4 mg PO DAILY [facility] Last Admin: 04/26/17 09:37 Dose: 4 mg Heparin Sodium (Porcine) (Heparin) 5,000 units SC Q8 [facility] Last Admin: 04/26/17 05:20 Dose: 5,000 units Hydromorphone HCl (Dilaudid) 1 mg IVP Q4H PRN PRN Reason: pain Last Admin: 04/26/17 09:37 Dose: 1 mg Ciprofloxacin (Cipro 400mg/200ml Dsw) 400 mg in 200 mls @ 133 mls/hr IVPB Q12H [facility] PRN Reason: Protocol Last Admin: 04/26/17 00:12 Dose: 133 mls/hr Lisinopril (Zestril) 5 mg PO DAILY [facility] Last Admin: 04/26/17 09:37 Dose: 5 mg Metformin HCl (Glucophage Xr) 500 mg PO BID [facility] Last Admin: 04/24/17 10:24 Dose: 500 mg Mupirocin (Bactroban Ointment) 1 gm TOP BID [facility] Last Admin: 04/26/17 09:39 Dose: 1 applic - Labs Labs: 04/26/17 07:11 04/26/17 07:11 PT 11.2 SECONDS (9.7-12.2) 04/24/17 14:38 INR 1.0 04/24/17 14:38 APTT 32 SECONDS (21-34) 04/24/17 14:38 - Constitutional Appears: Well, No Acute Distress - Head Exam Head Exam: ATRAUMATIC, NORMOCEPHALIC - Eye Exam Eye Exam: Normal appearance - ENT Exam ENT Exam: Mucous Membranes Moist - Respiratory Exam Respiratory Exam: NORMAL BREATHING PATTERN - Cardiovascular Exam Cardiovascular Exam: RRR - GI/Abdominal Exam GI & Abdominal Exam: Soft - Extremities Exam Additional comments: warm, triphasic doppler signals RLE, R lateral foot ulcer with dressing C/D/I - Neurological Exam Neurological Exam: Alert, Awake, Oriented x3 - Skin Skin Exam: Dry, Warm Assessment and Plan - Assessment and Plan (Free Text) Assessment: 76M with PVD & non-healing R foot ulcer s/p balloon angioplasty of RLE Plan: - cont foot ulcer management per podiatry & ID - no further surgical intervention at this time - d/w Dr. Mery Shepard, PGY-3
--- NOTE | 2017-04-26 12:12 | CP.PCM.PN ---
Subjective - Date & Time of Evaluation Date of Evaluation: 04/26/17 Time of Evaluation: 10:09 - Subjective Subjective: Podiatry progress Note: Dr. Josue 76 year old male patient was seen at bedside this morning with attending Dr. Josue concerning right lateral decubitus ulceration. Patient is resting in bed, AAOx3, NAD. Dressing to right lower extremity c/d/i. Patient denies of having any recent F/N/V/C/SOB/CP/headache. Podiatry treatment plan delayed due to incomplete MRI. Patient will go back for another MRI. Objective - Vital Signs/Intake and Output Vital Signs (last 24 hours): Temp Pulse Resp BP Pulse Ox 98.2 F 64 20 133/59 L 96 04/26/17 08:00 04/26/17 08:00 04/26/17 08:00 04/26/17 08:00 04/26/17 08:00 Intake and Output: 04/26/17 04/26/17 06:59 18:59 Intake Total 1780 Balance 1780 - Medications Medications: Current Medications Aspirin (Ecotrin) 81 mg PO DAILY [facility] Last Admin: 04/26/17 09:37 Dose: 81 mg Glimepiride (Amaryl) 4 mg PO DAILY [facility] Last Admin: 04/26/17 09:37 Dose: 4 mg Heparin Sodium (Porcine) (Heparin) 5,000 units SC Q8 [facility] Last Admin: 04/26/17 05:20 Dose: 5,000 units Hydromorphone HCl (Dilaudid) 1 mg IVP Q4H PRN PRN Reason: pain Last Admin: 04/26/17 09:37 Dose: 1 mg Ciprofloxacin (Cipro 400mg/200ml Dsw) 400 mg in 200 mls @ 133 mls/hr IVPB Q12H [facility] PRN Reason: Protocol Last Admin: 04/26/17 00:12 Dose: 133 mls/hr Lisinopril (Zestril) 5 mg PO DAILY [facility] Last Admin: 04/26/17 09:37 Dose: 5 mg Metformin HCl (Glucophage Xr) 500 mg PO BID [facility] Last Admin: 04/24/17 10:24 Dose: 500 mg Mupirocin (Bactroban Ointment) 1 gm TOP BID [facility] Last Admin: 04/26/17 09:39 Dose: 1 applic - Labs Labs: 04/26/17 07:11 04/26/17 07:11 PT 11.2 SECONDS (9.7-12.2) 04/24/17 14:38 INR 1.0 04/24/17 14:38 APTT 32 SECONDS (21-34) 04/24/17 14:38 - Constitutional Appears: Well, Non-toxic, No Acute Distress - Head Exam Head Exam: ATRAUMATIC - Extremities Exam Additional comments: RLE focused exam: DERM: Un stageable decubitus ulceration measuring 2.5 x 1.5cm x 0.3 cm to the lateral aspect of Right foot at the level of 5th metatarsal base with no active purulent drainage, wound base appears necrotic eschar , minimal serous drainage upon pressing the wound edges, no maceration, no tunneling, mild malodor, troy- wound erythema noted not extending proximally VASC: DP/PT pulses are palpable 1/4 . Cap refill time: < 3 seconds to all digits. Skin temperature warm to warm from proximal to distal. mild non-pitting edema noted on on the foot extending to the ankle with accompanied erythema NEURO: Epicritic and protective sensation grossly intact ORTHO: mild tenderness on palpation of the ulcerated site, Alva's negative, no pain on palpation of the calf, MMT: 5/5 in all 4 directions at the ankle joint - Neurological Exam Neurological Exam: Alert, Awake, Oriented x3 - Psychiatric Exam Psychiatric exam: Normal Mood Assessment and Plan - Assessment and Plan (Free Text) Assessment: 76 year old male patient seen at bedside for right foot decubitus ulceration, unstageable due to necrotic eschar Plan: patient evaluated and chart reviewed Rounded with attending Dr. Josue Labs, vitals and charts reviewed - afebrile X-rays of the right foot - No abscess, possible OM MRI still pending due to incomplete study. CTA Right - Moderate stenosis of common femoral, SFA, Popliteal arteries. Severe stenosis of anterior tibial, posterior tibial, peroneal arteries 1 day s/p Aortofemoral angiogram. Selective catherization of right femoral artery. Atherectomy (CSI 2.0) of common femoral with 6 mm balloon angioplasty. balloon angioplasty 3mm to tibio peroneal trunk by Dr Ordonez WCX: Final- enterobacter cloacae Wound cleaned using saline and dressing applied using Betadine, DSD Bacitracin ordered cont. zosyn as per ID Podiatry to follow patient while in house
[2017-04-26] MEDS ORDERED: Bacitracin Ointment 30 GM TUBE TOP SCH (12:30)
--- NOTE | 2017-04-26 14:39 | CP.PCM.PN ---
Subjective - Date & Time of Evaluation Date of Evaluation: 04/26/17 Time of Evaluation: 07:30 - Subjective Subjective: clinically same Objective - Vital Signs/Intake and Output Vital Signs (last 24 hours): Temp Pulse Resp BP Pulse Ox 98.2 F 64 20 133/59 L 96 04/26/17 08:00 04/26/17 08:00 04/26/17 08:00 04/26/17 08:00 04/26/17 08:00 Intake and Output: 04/26/17 04/26/17 06:59 18:59 Intake Total 1780 Output Total 200 Balance 1780 -200 - Medications Medications: Current Medications Aspirin (Ecotrin) 81 mg PO DAILY [facility] Last Admin: 04/26/17 09:37 Dose: 81 mg Bacitracin (Bacitracin) 0 gm TOP DAILY [facility] Glimepiride (Amaryl) 4 mg PO DAILY [facility] Last Admin: 04/26/17 09:37 Dose: 4 mg Heparin Sodium (Porcine) (Heparin) 5,000 units SC Q8 [facility] Last Admin: 04/26/17 13:45 Dose: 5,000 units Hydromorphone HCl (Dilaudid) 1 mg IVP Q4H PRN PRN Reason: pain Last Admin: 04/26/17 13:46 Dose: 1 mg Ciprofloxacin (Cipro 400mg/200ml Dsw) 400 mg in 200 mls @ 133 mls/hr IVPB Q12H [facility] PRN Reason: Protocol Last Admin: 04/26/17 12:10 Dose: 133 mls/hr Lisinopril (Zestril) 5 mg PO DAILY [facility] Last Admin: 04/26/17 09:37 Dose: 5 mg Metformin HCl (Glucophage Xr) 500 mg PO BID [facility] Last Admin: 04/24/17 10:24 Dose: 500 mg Mupirocin (Bactroban Ointment) 1 gm TOP BID [facility] Last Admin: 04/26/17 09:39 Dose: 1 applic - Labs Labs: 04/26/17 07:11 04/26/17 07:11 PT 11.2 SECONDS (9.7-12.2) 04/24/17 14:38 INR 1.0 04/24/17 14:38 APTT 32 SECONDS (21-34) 04/24/17 14:38 Assessment and Plan - Assessment and Plan (Free Text) Plan: Needs another MRI Podiatry consultations Continue Cipro Continue heparin and other medications Continue local mupirocin Continue vascular surgery follow-up Patient offers no new complaint Status post balloon angioplasty
[2017-04-27] MEDS: Ciprofloxacin 400mg/200ml D5W 400 MG/200 ML BAG IVPB SCH ×2 (01:38→14:41)
[2017-04-27] MEDS: HYDROmorphone 1 mg/ml ISec IVP PRN ×3 (01:39→11:37)
[2017-04-27] MEDS: Bacitracin Ointment 30 GM TUBE TOP SCH (09:26)
--- NOTE | 2017-04-27 12:48 | CP.PCM.PN ---
Subjective - Date & Time of Evaluation Date of Evaluation: 04/27/17 Time of Evaluation: 12:43 - Subjective Subjective: Podiatry progress Note: Dr. Josue 76 year old male patient was seen at bedside this morning with attending Dr. Josue concerning right lateral decubitus ulceration. Dr. Josue tried convincing the patient to take MRI and explained mechanism of MRI and the reason we need to take it. Patient still refused to take the MRI even with explanation of possible outcomes including proximal advancement of osteomyelitis from Right foot. the Patient is resting in bed, AAOx3, NAD. Dressing to right lower extremity c/d/i. Patient denies of having any recent F/N /V/C/SOB/CP/headache. Bonescan ordered instead. MRI was ordered to r/o OM, but the patient refused due to painful positioning of right foot. Objective - Vital Signs/Intake and Output Vital Signs (last 24 hours): Temp Pulse Resp BP Pulse Ox 97.9 F 61 20 150/84 96 04/27/17 08:00 04/27/17 08:00 04/27/17 08:00 04/27/17 08:00 04/27/17 08:00 Intake and Output: 04/27/17 04/27/17 06:59 18:59 Intake Total 350 Output Total 500 Balance -150 - Medications Medications: Current Medications Aspirin (Ecotrin) 81 mg PO DAILY [facility] Last Admin: 04/27/17 09:25 Dose: 81 mg Bacitracin (Bacitracin) 0 gm TOP DAILY [facility] Last Admin: 04/27/17 09:26 Dose: Not Given Glimepiride (Amaryl) 4 mg PO DAILY [facility] Last Admin: 04/27/17 09:25 Dose: 4 mg Hydromorphone HCl (Dilaudid) 1 mg IVP Q4H PRN PRN Reason: pain Last Admin: 04/27/17 11:37 Dose: 1 mg Ciprofloxacin (Cipro 400mg/200ml Dsw) 400 mg in 200 mls @ 133 mls/hr IVPB Q12H [facility] PRN Reason: Protocol Last Admin: 04/27/17 01:38 Dose: 133 mls/hr Insulin Human Regular (Novolin R) 0 unit SC ACHS [facility] PRN Reason: Protocol Lisinopril (Zestril) 5 mg PO DAILY [facility] Last Admin: 04/27/17 09:25 Dose: 5 mg Metformin HCl (Glucophage Xr) 500 mg PO BID [facility] Last Admin: 04/24/17 10:24 Dose: 500 mg Mupirocin (Bactroban Ointment) 1 gm TOP BID [facility] Last Admin: 04/27/17 09:26 Dose: Not Given - Labs Labs: 04/26/17 07:11 04/26/17 07:11 PT 11.2 SECONDS (9.7-12.2) 04/24/17 14:38 INR 1.0 04/24/17 14:38 APTT 32 SECONDS (21-34) 04/24/17 14:38 - Constitutional Appears: Well, Non-toxic, No Acute Distress - Head Exam Head Exam: ATRAUMATIC - Extremities Exam Additional comments: RLE focused exam: DERM: Un stageable decubitus ulceration measuring 2.5 x 1.5cm x 0.3 cm to the lateral aspect of Right foot at the level of 5th metatarsal base with no active purulent drainage, wound base appears necrotic eschar , minimal serous drainage upon pressing the wound edges, no maceration, no tunneling, mild malodor, troy- wound erythema noted not extending proximally VASC: DP/PT pulses are palpable 1/4 . Cap refill time: < 3 seconds to all digits. Skin temperature warm to warm from proximal to distal. mild non-pitting edema noted on on the foot extending to the ankle with accompanied erythema NEURO: Epicritic and protective sensation grossly intact ORTHO: mild tenderness on palpation of the ulcerated site, Alva's negative, no pain on palpation of the calf, MMT: 5/5 in all 4 directions at the ankle joint - Neurological Exam Neurological Exam: Alert, Awake, Oriented x3 - Psychiatric Exam Psychiatric exam: Normal Affect, Normal Mood Assessment and Plan - Assessment and Plan (Free Text) Assessment: 76 year old male patient seen at bedside for right foot decubitus ulceration, unstageable due to necrotic eschar Plan: patient evaluated and chart reviewed Rounded with attending Dr. Josue Labs, vitals and charts reviewed - afebrile X-rays of the right foot - No abscess, possible OM CTA Right - Moderate stenosis of common femoral, SFA, Popliteal arteries. Severe stenosis of anterior tibial, posterior tibial, peroneal arteries 1 day s/p Aortofemoral angiogram. Selective catherization of right femoral artery. Atherectomy (CSI 2.0) of common femoral with 6 mm balloon angioplasty. balloon angioplasty 3mm to tibio peroneal trunk by Dr Ordonez WCX: Final- enterobacter cloacae Wound cleaned using saline and dressing applied using Betadine, DSD Bacitracin ordered cont. zosyn as per ID Podiatry to follow patient while in house MRI refused by the patient. Bonescan ordered. Podiatry to take patient to OR tentatively next Monday 05/01 for debridement of Right foot wound / VAC placement
--- NOTE | 2017-04-27 13:13 | CP.PCM.PN ---
Subjective - Date & Time of Evaluation Date of Evaluation: 04/27/17 Time of Evaluation: 07:20 - Subjective Subjective: clinically same Objective - Vital Signs/Intake and Output Vital Signs (last 24 hours): Temp Pulse Resp BP Pulse Ox 97.9 F 61 20 150/84 96 04/27/17 08:00 04/27/17 08:00 04/27/17 08:00 04/27/17 08:00 04/27/17 08:00 Intake and Output: 04/27/17 04/27/17 06:59 18:59 Intake Total 350 Output Total 500 Balance -150 - Medications Medications: Current Medications Aspirin (Ecotrin) 81 mg PO DAILY [facility] Last Admin: 04/27/17 09:25 Dose: 81 mg Bacitracin (Bacitracin) 0 gm TOP DAILY [facility] Last Admin: 04/27/17 09:26 Dose: Not Given Glimepiride (Amaryl) 4 mg PO DAILY [facility] Last Admin: 04/27/17 09:25 Dose: 4 mg Hydromorphone HCl (Dilaudid) 1 mg IVP Q4H PRN PRN Reason: pain Last Admin: 04/27/17 11:37 Dose: 1 mg Ciprofloxacin (Cipro 400mg/200ml Dsw) 400 mg in 200 mls @ 133 mls/hr IVPB Q12H [facility] PRN Reason: Protocol Last Admin: 04/27/17 01:38 Dose: 133 mls/hr Insulin Human Regular (Novolin R) 0 unit SC ACHS [facility] PRN Reason: Protocol Lisinopril (Zestril) 5 mg PO DAILY [facility] Last Admin: 04/27/17 09:25 Dose: 5 mg Metformin HCl (Glucophage Xr) 500 mg PO BID [facility] Last Admin: 04/24/17 10:24 Dose: 500 mg Mupirocin (Bactroban Ointment) 1 gm TOP BID [facility] Last Admin: 04/27/17 09:26 Dose: Not Given - Labs Labs: 04/26/17 07:11 04/26/17 07:11 PT 11.2 SECONDS (9.7-12.2) 04/24/17 14:38 INR 1.0 04/24/17 14:38 APTT 32 SECONDS (21-34) 04/24/17 14:38 - Constitutional Appears: Well - Head Exam Head Exam: ATRAUMATIC, NORMAL INSPECTION, NORMOCEPHALIC - Eye Exam Eye Exam: EOMI, Normal appearance, PERRL Pupil Exam: NORMAL ACCOMODATION, PERRL - ENT Exam ENT Exam: Mucous Membranes Moist, Normal Exam - Neck Exam Neck Exam: Full ROM, Normal Inspection. absent: Lymphadenopathy - Respiratory Exam Respiratory Exam: Decreased Breath Sounds - Cardiovascular Exam Cardiovascular Exam: REGULAR RHYTHM, +S1, +S2 - GI/Abdominal Exam GI & Abdominal Exam: Soft, Diminished Bowel Sounds - Rectal Exam Rectal Exam: Deferred Assessment and Plan - Assessment and Plan (Free Text) Plan: Is refusing MRI patient advised the need for the MRI continue same follow-up with the podiatry Dr. Demario Spivey Status post angioplasty IV antibiotic Aspirin Follow-up with ID Follow-up with the consultations Follow-up with that I will be every 4 as needed for the pain As ordered
[2017-04-27] MEDS: (Novolin R) Insulin Human Regular 100 units/ml vial SC SCH ×2 (17:00→21:41)
--- NOTE | 2017-04-27 18:48 | CP.PCM.PN ---
Subjective - Date & Time of Evaluation Date of Evaluation: 04/27/17 Time of Evaluation: 09:00 - Subjective Subjective: afeb alert\nad wound improving slowly would rx as OM Objective - Vital Signs/Intake and Output Vital Signs (last 24 hours): Temp Pulse Resp BP Pulse Ox 98.1 F 61 20 150/84 96 04/27/17 15:07 04/27/17 15:36 04/27/17 15:07 04/27/17 15:36 04/27/17 15:36 Intake and Output: 04/27/17 04/27/17 06:59 18:59 Intake Total 350 700 Output Total 500 Balance -150 700 - Medications Medications: Current Medications Aspirin (Ecotrin) 81 mg PO DAILY [facility] Last Admin: 04/27/17 09:25 Dose: 81 mg Bacitracin (Bacitracin) 0 gm TOP DAILY [facility] Last Admin: 04/27/17 09:26 Dose: Not Given Glimepiride (Amaryl) 4 mg PO DAILY [facility] Last Admin: 04/27/17 09:25 Dose: 4 mg Hydromorphone HCl (Dilaudid) 1 mg IVP Q4H PRN PRN Reason: pain Last Admin: 04/27/17 11:37 Dose: 1 mg Ciprofloxacin (Cipro 400mg/200ml Dsw) 400 mg in 200 mls @ 133 mls/hr IVPB Q12H [facility] PRN Reason: Protocol Last Admin: 04/27/17 14:41 Dose: 133 mls/hr Insulin Human Regular (Novolin R) 0 unit SC ACHS [facility] PRN Reason: Protocol Last Admin: 04/27/17 17:00 Dose: 4 unit Lisinopril (Zestril) 5 mg PO DAILY [facility] Last Admin: 04/27/17 09:25 Dose: 5 mg Metformin HCl (Glucophage Xr) 500 mg PO BID [facility] Last Admin: 04/24/17 10:24 Dose: 500 mg Mupirocin (Bactroban Ointment) 1 gm TOP BID [facility] Last Admin: 04/27/17 18:05 Dose: 1 applic - Labs Labs: 04/26/17 07:11 04/26/17 07:11 PT 11.2 SECONDS (9.7-12.2) 04/24/17 14:38 INR 1.0 04/24/17 14:38 APTT 32 SECONDS (21-34) 04/24/17 14:38 - Constitutional Appears: Non-toxic, Chronically Ill - Head Exam Head Exam: NORMOCEPHALIC - Eye Exam Eye Exam: PERRL - ENT Exam ENT Exam: Mucous Membranes Dry - Neck Exam Neck Exam: absent: Lymphadenopathy - Respiratory Exam Respiratory Exam: Decreased Breath Sounds - Cardiovascular Exam Cardiovascular Exam: REGULAR RHYTHM - GI/Abdominal Exam GI & Abdominal Exam: Distended, Soft - Rectal Exam Rectal Exam: Deferred - Exam Exam: NORMAL INSPECTION - Extremities Exam Extremities Exam: Pedal Edema, Tenderness. absent: Calf Tenderness - Back Exam Back Exam: absent: CVA tenderness (L), CVA tenderness (R) - Neurological Exam Neurological Exam: Alert, Awake, Oriented x3 Neuro motor strength exam: Left Upper Extremity: 4, Right Upper Extremity: 4, Left Lower Extremity: 4, Right Lower Extremity: 4 - Psychiatric Exam Psychiatric exam: Normal Mood - Skin Skin Exam: Dry Assessment and Plan (1) Cellulitis Status: Acute (2) Hyperglycemia Status: Acute (3) Non-healing ulcer of foot Status: Acute (4) Hyperglycemia without ketosis Status: Acute (5) Leg pain, bilateral Status: Acute (6) Ulcer Status: Acute (7) Osteomyelitis Status: Acute - Assessment and Plan (Free Text) Assessment: rx as OM cont rx as per dr Rubin Tello
[2017-04-27] MEDS: HYDROmorphone 0.5 mg/0.5 ml ISec IVP PRN (23:00)
[2017-04-28] MEDS: HYDROmorphone 0.5 mg/0.5 ml ISec IVP PRN ×4 (04:08→21:13)
[2017-04-28] MEDS: (Novolin R) Insulin Human Regular 100 units/ml vial SC SCH ×5 (08:11→21:55)
[2017-04-28] MEDS: Bacitracin Ointment 30 GM TUBE TOP SCH ×2 (09:33→14:17)
[2017-04-28] MEDS: Ciprofloxacin 400mg/200ml D5W 400 MG/200 ML BAG IVPB SCH ×2 (12:53)
--- NOTE | 2017-04-28 14:28 | CP.PCM.PN ---
Subjective - Date & Time of Evaluation Date of Evaluation: 04/28/17 Time of Evaluation: 07:20 - Subjective Subjective: clinically same Objective - Vital Signs/Intake and Output Vital Signs (last 24 hours): Temp Pulse Resp BP Pulse Ox 98.5 F 72 20 150/75 96 04/28/17 08:00 04/28/17 08:00 04/28/17 08:00 04/28/17 08:00 04/28/17 08:00 - Medications Medications: Current Medications Aspirin (Ecotrin) 81 mg PO DAILY [facility] Last Admin: 04/28/17 09:32 Dose: 81 mg Bacitracin (Bacitracin) 0 gm TOP DAILY [facility] Last Admin: 04/28/17 14:17 Dose: 1 applic Glimepiride (Amaryl) 4 mg PO DAILY [facility] Last Admin: 04/28/17 09:32 Dose: 4 mg Hydromorphone HCl (Dilaudid) 1 mg IVP Q4H PRN PRN Reason: pain Last Admin: 04/28/17 08:12 Dose: 1 mg Ciprofloxacin (Cipro 400mg/200ml Dsw) 400 mg in 200 mls @ 133 mls/hr IVPB Q12H [facility] PRN Reason: Protocol Last Admin: 04/28/17 12:53 Dose: 133 mls/hr Insulin Human Regular (Novolin R) 0 unit SC ACHS [facility] PRN Reason: Protocol Last Admin: 04/28/17 12:51 Dose: 3 unit Lisinopril (Zestril) 5 mg PO DAILY [facility] Last Admin: 04/28/17 09:32 Dose: 5 mg Metformin HCl (Glucophage Xr) 500 mg PO BID [facility] Last Admin: 04/24/17 10:24 Dose: 500 mg Mupirocin (Bactroban Ointment) 1 gm TOP BID [facility] Last Admin: 04/28/17 13:45 Dose: 1 applic - Labs Labs: 04/26/17 07:11 04/26/17 07:11 PT 11.2 SECONDS (9.7-12.2) 04/24/17 14:38 INR 1.0 04/24/17 14:38 APTT 32 SECONDS (21-34) 04/24/17 14:38 - Constitutional Appears: Well - Head Exam Head Exam: ATRAUMATIC, NORMAL INSPECTION, NORMOCEPHALIC - Eye Exam Eye Exam: EOMI, Normal appearance, PERRL Pupil Exam: NORMAL ACCOMODATION, PERRL - ENT Exam ENT Exam: Mucous Membranes Moist, Normal Exam - Neck Exam Neck Exam: Full ROM, Normal Inspection. absent: Lymphadenopathy - Respiratory Exam Respiratory Exam: Decreased Breath Sounds - Cardiovascular Exam Cardiovascular Exam: REGULAR RHYTHM, +S1, +S2 - GI/Abdominal Exam GI & Abdominal Exam: Soft, Diminished Bowel Sounds - Rectal Exam Rectal Exam: Deferred Assessment and Plan (1) Cellulitis Status: Acute (2) Hyperglycemia Status: Acute (3) Non-healing ulcer of foot Status: Acute (4) Osteomyelitis Status: Acute (5) Ankle fracture, right Status: Acute (6) Ankle pain Status: Acute (7) Hyperglycemia without ketosis Status: Acute (8) Leg pain, bilateral Status: Acute (9) Ulcer Status: Acute - Assessment and Plan (Free Text) Plan: Continue IV antibiotic MRI of the foot Aspirin Ciprofloxacin Monitor fingerstick Follow-up with the podiatry and ID As ordered
[2017-04-29] MEDS: Ciprofloxacin 400mg/200ml D5W 400 MG/200 ML BAG IVPB SCH ×2 (01:13→13:33)
[2017-04-29] MEDS: HYDROmorphone 0.5 mg/0.5 ml ISec IVP PRN ×2 (01:29→09:26)
[2017-04-29] MEDS: (Novolin R) Insulin Human Regular 100 units/ml vial SC SCH ×4 (08:30→22:07)
[2017-04-29] MEDS: Bacitracin Ointment 30 GM TUBE TOP SCH (09:23)
--- NOTE | 2017-04-29 14:51 | CP.PCM.PN ---
Subjective - Date & Time of Evaluation Date of Evaluation: 04/29/17 Time of Evaluation: 14:46 - Subjective Subjective: Podiatry progress Note: Dr. Josue 76 year old male patient was seen at bedside this morning concerning right lateral decubitus ulceration. Patient states that his pain is well controlled and denies any new onset pain. Denies any acute overnight events. Is AAO x 3 and NAD during examination. Denies any further pedal complaints at this time. Denies any recent N/V/F/C/CP/SOB/D/posterior calf pain when squeezed Objective - Vital Signs/Intake and Output Vital Signs (last 24 hours): Temp Pulse Resp BP Pulse Ox 97.7 F 68 20 118/66 96 04/29/17 00:00 04/29/17 00:00 04/29/17 00:00 04/29/17 00:00 04/29/17 00:00 Intake and Output: 04/29/17 04/29/17 06:59 18:59 Intake Total 400 Output Total 350 Balance 50 - Medications Medications: Current Medications Aspirin (Ecotrin) 81 mg PO DAILY [facility] Last Admin: 04/29/17 09:23 Dose: 81 mg Bacitracin (Bacitracin) 0 gm TOP DAILY [facility] Last Admin: 04/29/17 09:23 Dose: 1 applic Glimepiride (Amaryl) 4 mg PO DAILY [facility] Last Admin: 04/29/17 09:23 Dose: 4 mg Hydromorphone HCl (Dilaudid) 1 mg IVP Q4H PRN PRN Reason: pain Last Admin: 04/29/17 09:26 Dose: 1 mg Ciprofloxacin (Cipro 400mg/200ml Dsw) 400 mg in 200 mls @ 133 mls/hr IVPB Q12H [facility] PRN Reason: Protocol Last Admin: 04/29/17 13:33 Dose: 133 mls/hr Insulin Human Regular (Novolin R) 0 unit SC ACHS [facility] PRN Reason: Protocol Last Admin: 04/29/17 12:30 Dose: 4 unit Lisinopril (Zestril) 5 mg PO DAILY [facility] Last Admin: 04/29/17 09:23 Dose: 5 mg Metformin HCl (Glucophage Xr) 500 mg PO BID [facility] Last Admin: 04/24/17 10:24 Dose: 500 mg Mupirocin (Bactroban Ointment) 1 gm TOP BID [facility] Last Admin: 04/29/17 09:23 Dose: Not Given - Labs Labs: 04/26/17 07:11 04/26/17 07:11 PT 11.2 SECONDS (9.7-12.2) 04/24/17 14:38 INR 1.0 04/24/17 14:38 APTT 32 SECONDS (21-34) 04/24/17 14:38 - Constitutional Appears: Well, Non-toxic, No Acute Distress - Extremities Exam Additional comments: RLE focused exam: DERM: Un stageable decubitus ulceration measuring 2.5 x 1.5cm x 0.3 cm to the lateral aspect of Right foot at the level of 5th metatarsal base with no active purulent drainage, wound base appears necrotic eschar , minimal serous drainage upon pressing the wound edges, no maceration, no tunneling, mild malodor, minimal troy-wound erythema noted not extending proximally VASC: DP/PT pulses are palpable 1/4 . Cap refill time: < 3 seconds to all digits. Skin temperature warm to warm from proximal to distal. mild non-pitting edema noted on on the foot extending to the ankle with accompanied erythema NEURO: Epicritic and protective sensation grossly intact ORTHO: mild tenderness on palpation of the ulcerated site, Alva's negative, no pain on palpation of the calf, MMT: 5/5 in all 4 directions at the ankle joint - Neurological Exam Neurological Exam: Alert, Awake, Oriented x3 - Psychiatric Exam Psychiatric exam: Normal Affect, Normal Mood Assessment and Plan - Assessment and Plan (Free Text) Assessment: 76 year old male patient seen at bedside for right foot decubitus ulceration, unstageable due to necrotic eschar Plan: Patient seen and evaluated at bedside Chart reviewed Plan discussed with attending Dr. Josue Labs, vitals and charts reviewed - afebrile X-rays of the right foot - No abscess, possible OM CTA Right - Moderate stenosis of common femoral, SFA, Popliteal arteries. Severe stenosis of anterior tibial, posterior tibial, peroneal arteries 1 day s/p Aortofemoral angiogram. Selective catherization of right femoral artery. Atherectomy (CSI 2.0) of common femoral with 6 mm balloon angioplasty. balloon angioplasty 3mm to tibio peroneal trunk by Dr Mery WCX: Final- enterobacter cloacae WBC bone scan complete - final read pending Wound cleaned using saline and dressing applied using Betadine, DSD cont. Ciprofloxacin as per ID Podiatry will continue to follow patient while in house
--- NOTE | 2017-04-29 16:38 | CP.PCM.PN ---
Subjective - Date & Time of Evaluation Date of Evaluation: 04/29/17 Time of Evaluation: 16:36 - Subjective Subjective: in period of waiting. If foot is improving canmonitor , if not improving bypass tp foot is other option but higher risk Objective - Vital Signs/Intake and Output Vital Signs (last 24 hours): Temp Pulse Resp BP Pulse Ox 98.3 F 77 20 124/78 96 04/29/17 08:00 04/29/17 08:00 04/29/17 08:00 04/29/17 08:00 04/29/17 08:00 Intake and Output: 04/29/17 04/29/17 06:59 18:59 Intake Total 400 680 Output Total 350 450 Balance 50 230 - Medications Medications: Current Medications Aspirin (Ecotrin) 81 mg PO DAILY [facility] Last Admin: 04/29/17 09:23 Dose: 81 mg Bacitracin (Bacitracin) 0 gm TOP DAILY [facility] Last Admin: 04/29/17 09:23 Dose: 1 applic Glimepiride (Amaryl) 4 mg PO DAILY [facility] Last Admin: 04/29/17 09:23 Dose: 4 mg Hydromorphone HCl (Dilaudid) 1 mg IVP Q4H PRN PRN Reason: pain Last Admin: 04/29/17 09:26 Dose: 1 mg Ciprofloxacin (Cipro 400mg/200ml Dsw) 400 mg in 200 mls @ 133 mls/hr IVPB Q12H [facility] PRN Reason: Protocol Last Admin: 04/29/17 13:33 Dose: 133 mls/hr Insulin Human Regular (Novolin R) 0 unit SC ACHS [facility] PRN Reason: Protocol Last Admin: 04/29/17 12:30 Dose: 4 unit Lisinopril (Zestril) 5 mg PO DAILY [facility] Last Admin: 04/29/17 09:23 Dose: 5 mg Metformin HCl (Glucophage Xr) 500 mg PO BID [facility] Last Admin: 04/24/17 10:24 Dose: 500 mg Mupirocin (Bactroban Ointment) 1 gm TOP BID [facility] Last Admin: 04/29/17 09:23 Dose: Not Given - Labs Labs: 04/26/17 07:11 04/26/17 07:11 PT 11.2 SECONDS (9.7-12.2) 04/24/17 14:38 INR 1.0 04/24/17 14:38 APTT 32 SECONDS (21-34) 04/24/17 14:38
--- NOTE | 2017-04-29 16:56 | CP.PCM.PN ---
Subjective - Date & Time of Evaluation Date of Evaluation: 04/29/17 Time of Evaluation: 09:00 - Subjective Subjective: AFEB NAD DENIES CHEST PAIN Objective - Vital Signs/Intake and Output Vital Signs (last 24 hours): Temp Pulse Resp BP Pulse Ox 98.3 F 77 20 124/78 96 04/29/17 08:00 04/29/17 08:00 04/29/17 08:00 04/29/17 08:00 04/29/17 08:00 Intake and Output: 04/29/17 04/29/17 06:59 18:59 Intake Total 400 680 Output Total 350 450 Balance 50 230 - Medications Medications: Current Medications Aspirin (Ecotrin) 81 mg PO DAILY [facility] Last Admin: 04/29/17 09:23 Dose: 81 mg Bacitracin (Bacitracin) 0 gm TOP DAILY [facility] Last Admin: 04/29/17 09:23 Dose: 1 applic Ciprofloxacin (Cipro) 500 mg PO Q12H [facility] Glimepiride (Amaryl) 4 mg PO DAILY [facility] Last Admin: 04/29/17 09:23 Dose: 4 mg Hydromorphone HCl (Dilaudid) 1 mg IVP Q4H PRN PRN Reason: pain Last Admin: 04/29/17 09:26 Dose: 1 mg Insulin Human Regular (Novolin R) 0 unit SC ACHS [facility] PRN Reason: Protocol Last Admin: 04/29/17 12:30 Dose: 4 unit Lisinopril (Zestril) 5 mg PO DAILY [facility] Last Admin: 04/29/17 09:23 Dose: 5 mg Metformin HCl (Glucophage Xr) 500 mg PO BID [facility] Last Admin: 04/24/17 10:24 Dose: 500 mg Mupirocin (Bactroban Ointment) 1 gm TOP BID [facility] Last Admin: 04/29/17 09:23 Dose: Not Given - Labs Labs: 04/26/17 07:11 04/26/17 07:11 PT 11.2 SECONDS (9.7-12.2) 04/24/17 14:38 INR 1.0 04/24/17 14:38 APTT 32 SECONDS (21-34) 04/24/17 14:38 - Constitutional Appears: Non-toxic, Chronically Ill - Head Exam Head Exam: NORMOCEPHALIC - Eye Exam Eye Exam: absent: Scleral icterus - ENT Exam ENT Exam: Mucous Membranes Dry - Neck Exam Neck Exam: absent: Lymphadenopathy - Respiratory Exam Respiratory Exam: Decreased Breath Sounds - Cardiovascular Exam Cardiovascular Exam: REGULAR RHYTHM - GI/Abdominal Exam GI & Abdominal Exam: Distended - Rectal Exam Rectal Exam: Deferred - Extremities Exam Extremities Exam: Pedal Edema. absent: Tenderness - Back Exam Back Exam: absent: CVA tenderness (L), CVA tenderness (R) Assessment and Plan (1) Cellulitis Status: Acute (2) Hyperglycemia Status: Acute (3) Non-healing ulcer of foot Status: Acute (4) Hyperglycemia without ketosis Status: Acute (5) Leg pain, bilateral Status: Acute (6) Ulcer Status: Acute (7) Osteomyelitis Status: Acute
--- NOTE | 2017-04-29 17:10 | CP.PCM.PN ---
Subjective - Date & Time of Evaluation Date of Evaluation: 04/29/17 Time of Evaluation: 07:10 - Subjective Subjective: clinically same Objective - Vital Signs/Intake and Output Vital Signs (last 24 hours): Temp Pulse Resp BP Pulse Ox 98.6 F 73 20 116/72 97 04/29/17 15:05 04/29/17 15:05 04/29/17 15:05 04/29/17 15:05 04/29/17 15:05 Intake and Output: 04/29/17 04/29/17 06:59 18:59 Intake Total 400 680 Output Total 350 450 Balance 50 230 - Medications Medications: Current Medications Aspirin (Ecotrin) 81 mg PO DAILY [facility] Last Admin: 04/29/17 09:23 Dose: 81 mg Bacitracin (Bacitracin) 0 gm TOP DAILY [facility] Last Admin: 04/29/17 09:23 Dose: 1 applic Ciprofloxacin (Cipro) 500 mg PO Q12H [facility] Glimepiride (Amaryl) 4 mg PO DAILY [facility] Last Admin: 04/29/17 09:23 Dose: 4 mg Hydromorphone HCl (Dilaudid) 1 mg IVP Q4H PRN PRN Reason: pain Last Admin: 04/29/17 09:26 Dose: 1 mg Insulin Human Regular (Novolin R) 0 unit SC ACHS [facility] PRN Reason: Protocol Last Admin: 04/29/17 12:30 Dose: 4 unit Lisinopril (Zestril) 5 mg PO DAILY [facility] Last Admin: 04/29/17 09:23 Dose: 5 mg Metformin HCl (Glucophage Xr) 500 mg PO BID [facility] Last Admin: 04/24/17 10:24 Dose: 500 mg Mupirocin (Bactroban Ointment) 1 gm TOP BID [facility] Last Admin: 04/29/17 09:23 Dose: Not Given - Labs Labs: 04/26/17 07:11 04/26/17 07:11 PT 11.2 SECONDS (9.7-12.2) 04/24/17 14:38 INR 1.0 04/24/17 14:38 APTT 32 SECONDS (21-34) 04/24/17 14:38 - Constitutional Appears: Well - Head Exam Head Exam: ATRAUMATIC, NORMAL INSPECTION, NORMOCEPHALIC - Eye Exam Eye Exam: EOMI, Normal appearance, PERRL Pupil Exam: NORMAL ACCOMODATION, PERRL - ENT Exam ENT Exam: Mucous Membranes Moist, Normal Exam - Neck Exam Neck Exam: Full ROM, Normal Inspection. absent: Lymphadenopathy - Respiratory Exam Respiratory Exam: Decreased Breath Sounds - Cardiovascular Exam Cardiovascular Exam: REGULAR RHYTHM, +S1, +S2 - GI/Abdominal Exam GI & Abdominal Exam: Soft, Diminished Bowel Sounds - Rectal Exam Rectal Exam: Deferred Assessment and Plan (1) Cellulitis Status: Acute (2) Hyperglycemia Status: Acute (3) Non-healing ulcer of foot Status: Acute (4) Osteomyelitis Status: Acute (5) Ankle fracture, right Status: Acute (6) Ankle pain Status: Acute (7) Hyperglycemia without ketosis Status: Acute (8) Leg pain, bilateral Status: Acute (9) Ulcer Status: Acute - Assessment and Plan (Free Text) Plan: Patient is to order MRI again patient speaks good Swazi IV antibiotic Patient agrees Continue same Discussed with the staff and the resident
[2017-04-30] MEDS: HYDROmorphone 1 mg/ml ISec IVP PRN ×2 (02:02→08:21)
[2017-04-30] MEDS: (Novolin R) Insulin Human Regular 100 units/ml vial SC SCH ×4 (08:17→21:37)
--- NOTE | 2017-04-30 09:25 | CP.PCM.PN ---
Addendum entered and electronically signed by Se Sierra 04/30/17 13:51: Plan for d/c home pending ID recs for abx Original Note: <Se Sierra - Last Filed: 04/30/17 13:41> Subjective - Date & Time of Evaluation Date of Evaluation: 04/30/17 Time of Evaluation: 09:19 - Subjective Subjective: Progress note for Dr. Tello's Service Pt seen and examined at bedside. He states that he is feeling well. His dressing was just recently changed as per the patient. He states his pain is well controlled. Objective - Vital Signs/Intake and Output Vital Signs (last 24 hours): Temp Pulse Resp BP Pulse Ox 98.8 F 78 20 118/61 95 04/30/17 08:37 04/30/17 08:37 04/30/17 08:37 04/30/17 08:37 04/30/17 08:37 Intake and Output: 04/30/17 04/30/17 06:59 18:59 Intake Total 450 240 Output Total 350 Balance 100 240 - Medications Medications: Current Medications Aspirin (Ecotrin) 81 mg PO DAILY [facility] Last Admin: 04/29/17 09:23 Dose: 81 mg Bacitracin (Bacitracin) 0 gm TOP DAILY [facility] Last Admin: 04/29/17 09:23 Dose: 1 applic Ciprofloxacin (Cipro) 500 mg PO Q12H [facility] Last Admin: 04/30/17 08:21 Dose: 500 mg Glimepiride (Amaryl) 4 mg PO DAILY [facility] Last Admin: 04/29/17 09:23 Dose: 4 mg Hydromorphone HCl (Dilaudid) 1 mg IVP Q4H PRN PRN Reason: pain Last Admin: 04/30/17 08:21 Dose: 1 mg Insulin Human Regular (Novolin R) 0 unit SC ACHS [facility] PRN Reason: Protocol Last Admin: 04/30/17 08:17 Dose: 3 unit Lisinopril (Zestril) 5 mg PO DAILY [facility] Last Admin: 04/29/17 09:23 Dose: 5 mg Metformin HCl (Glucophage Xr) 500 mg PO BIDCC [facility] Last Admin: 04/30/17 08:13 Dose: 500 mg Mupirocin (Bactroban Ointment) 1 gm TOP BID [facility] Last Admin: 04/29/17 17:41 Dose: 1 applic - Labs Labs: 04/26/17 07:11 04/26/17 07:11 PT 11.2 SECONDS (9.7-12.2) 04/24/17 14:38 INR 1.0 04/24/17 14:38 APTT 32 SECONDS (21-34) 04/24/17 14:38 - Constitutional Appears: No Acute Distress - Head Exam Head Exam: ATRAUMATIC, NORMOCEPHALIC - Eye Exam Eye Exam: EOMI - ENT Exam ENT Exam: Mucous Membranes Moist - Respiratory Exam Respiratory Exam: Clear to Ausculation Bilateral - Cardiovascular Exam Cardiovascular Exam: REGULAR RHYTHM, +S1, +S2 - GI/Abdominal Exam GI & Abdominal Exam: Soft. absent: Tenderness - Extremities Exam Additional comments: dressing c/d/i - Neurological Exam Neurological Exam: Alert, Awake, Oriented x3 - Psychiatric Exam Psychiatric exam: Normal Affect, Normal Mood - Skin Skin Exam: Dry, Warm Assessment and Plan - Assessment and Plan (Free Text) Plan: RLE cellulitis Podiatry consult placed-Dr. Liat sandoval appreciated WCX: enterobacter cloacae Wound dressings- saline and dressing applied using Betadine, DSD, Bacitracin Will continue to follow Vascular consult placed-Dr. Mery sandoval appreciated Right CARA 0.86, Left CARA 0.77 with mild to moderate arterial insufficiency CTA- Moderate stenosis of common femoral, SFA, Popliteal arteries. Severe stenosis of anterior tibial, posterior tibial, peroneal arteries MRI switched to bonescan but patient refused Angiography (R)- mod stenosis of common femoral art, Mod stenosis @ origin of SFA. 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 severe tibial disease with small posterior tibial as major target vessel in foot. ID consult placed-Dr. Usman sandoval appreciated Cipro 500mg PO q12hrs BONE SCAN NEG CONT ANTIBIOTICS PO FOR NOW FOLLOW UP WITH VASCUILAR AND PODIATRY RECC MRI CERETEC MAY GIVE FALSE NEG RESULTS IN SETTING OF PVD Lower extremity duplex- negative for DVT Labs, vitals and charts reviewed - afebrile, WBC @ 6.9 on most recent labs X-rays of the right foot- Void in the soft tissue with radiolucency at the site of the wound but no presence of soft tissue emphysema. Periosteal giovanna reaction noted at the styloid process of the 5th metatarsal possibly indicating acute OM Dilaudid 1mg IV q4hrs DM Glimeperide 4mg PO daily Lisinopril 5mg PO daily Metformin 500mg PO BID [facility] Prophylaxis Pepcid 20mg PO daily Planning for D/C to rehab. Case discussed with Dr. Tello All management as per Dr. Tello <Rashida Tello - Last Filed: 05/01/17 10:59> Objective - Vital Signs/Intake and Output Vital Signs (last 24 hours): Temp Pulse Resp BP Pulse Ox 98.1 F 78 20 137/78 96 05/01/17 07:41 05/01/17 07:41 05/01/17 07:41 05/01/17 07:41 05/01/17 07:41 Intake and Output: 05/01/17 05/01/17 06:59 18:59 Intake Total 640 Balance 640 - Medications Medications: Current Medications Aspirin (Ecotrin) 81 mg PO DAILY [facility] Last Admin: 04/30/17 10:38 Dose: 81 mg Bacitracin (Bacitracin) 0 gm TOP DAILY [facility] Last Admin: 04/30/17 12:50 Dose: Not Given Ciprofloxacin (Cipro) 500 mg PO Q12H [facility] Last Admin: 04/30/17 21:37 Dose: 500 mg Famotidine (Pepcid) 20 mg PO DAILY [facility] Glimepiride (Amaryl) 4 mg PO DAILY [facility] Last Admin: 04/30/17 10:38 Dose: 4 mg Hydromorphone HCl (Dilaudid) 1 mg IVP Q4H PRN PRN Reason: pain Last Admin: 04/30/17 08:21 Dose: 1 mg Hydromorphone HCl (Dilaudid) 2 mg IVP Q4H PRN PRN Reason: GIVE 30 MIN BEFORE MRI ONCE Stop: 05/02/17 01:00 Insulin Human Regular (Novolin R) 0 unit SC [facility] PRN Reason: Protocol Last Admin: 05/01/17 08:17 Dose: 3 unit Lisinopril (Zestril) 5 mg PO DAILY [facility] Last Admin: 04/30/17 10:38 Dose: 5 mg [facility] Last Admin: 05/01/17 08:17 Dose: 500 mg Mupirocin (Bactroban Ointment) 1 gm TOP BID [facility] Last Admin: 04/30/17 17:42 Dose: 1 applic - Labs Labs: 05/01/17 06:16 05/01/17 06:16 PT 11.2 SECONDS (9.7-12.2) 04/24/17 14:38 INR 1.0 04/24/17 14:38 APTT 32 SECONDS (21-34) 04/24/17 14:38 Assessment and Plan (1) Cellulitis Status: Acute (2) Hyperglycemia Status: Acute (3) Non-healing ulcer of foot Status: Acute (4) Osteomyelitis Status: Acute (5) Ankle fracture, right Status: Acute (6) Ankle pain Status: Acute (7) Hyperglycemia without ketosis Status: Acute (8) Leg pain, bilateral Status: Acute (9) Ulcer Status: Acute Attending/Attestation - Attestation I have personally seen and examined this patient.: Yes I have fully participated in the care of the patient.: Yes I have reviewed all pertinent clinical information, including history, physical exam and plan: Yes Notes (Text): 05/01/17 10:59 CASE SEEN AND D.W STAFF AND RESIDENT, CONCURRED WITH FINDING AND MANAGEMENT..
--- NOTE | 2017-04-30 10:53 | VASCLAB ---
PROCEDURE: Lower Extremity Vein mapping. HISTORY: pre op bypass PRIORS: None. TECHNIQUE: Bilateral common femoral, femoral, popliteal and posterior tibial, peroneal and great saphenous veins were evaluated. Flow was assessed with color Doppler, compressibility, assessment of phasic flow and augmentation response. Report prepared by STEVE Galan FINDINGS: RIGHT: 1. Common Femoral Vein: Compressibility - Fully compressible: Thrombus - None : Flow - Phasic: Augmentation -Normal: Reflux - None. 2. Femoral Vein:Compressibility - Fully compressible: Thrombus - None 3. Popliteal Vein: Compressibility - Fully compressible: Thrombus - None 4. Posterior Tibial Vein: Compressibility - Fully compressible: Thrombus - None 5. Peroneal Vein:Compressibility - Fully compressible: Thrombus - None 6. Greater Saphenous Vein: Compressibility - Fully compressible: Thrombus - None 6.1. Thigh - Proximal Diameter: .28cm. Mid Diameter: .28cm. Distal Diameter: .26cm. 6.2. Calf - Proximal Diameter: .23cm. Mid Diameter:.26cm. Distal Diameter: .31cm 6.3. Ankle - Diameter: cm 7. R[place]y Saphenous Vein: Compressibility - : thrombus - 7.1. Knee - Diameter cm 7.2. Calf - Proximal Diameter: cm. Mid Diameter: cm. Distal Diameter: cm. 7.3. Ankle - Diameter: cm LEFT: 1. Common Femoral Vein: Compressibility - Fully compressible: Thrombus - None : Flow - Phasic: Augmentation -Normal: Reflux - None. 2. Femoral Vein:Compressibility - Fully compressible: Thrombus - None 3. Popliteal Vein: Compressibility - Fully compressible: Thrombus - None 4. Posterior Tibial Vein: Compressibility - Fully compressible: Thrombus - None 5. Peroneal Vein:Compressibility - Fully compressible: Thrombus - None 6. Greater Saphenous Vein: Compressibility - Fully compressible: Thrombus - None 6.1. Thigh - Proximal Diameter: .20cm. Mid Diameter: .18cm. Distal Diameter: .23cm. 6.2. Calf - Proximal Diameter: .10cm. Mid Diameter:.08cm. Distal Diameter: .10cm 6.3. Ankle - Diameter: cm 7. [place] Saphenous Vein: Compressibility - : thrombus - 7.1. Knee - Diameter cm 7.2. Calf - Proximal Diameter: cm. Mid Diameter: cm. Distal Diameter: cm. 7.3. Ankle - Diameter: cm OTHER FINDINGS: Right: None. Left: None. IMPRESSION: Right: No evidence of vein thrombosis of the right lower extremity with excellent venous flow. Normal valve function noted of the right side. Left: No evidence of vein thrombosis of the left lower extremity with excellent venous flow. Normal valve function noted of the left side.
--- NOTE | 2017-04-30 11:01 | NM ---
PROCEDURE: Three-phase bone scan HISTORY: Nonhealing ulcer right foot COMPARISON: None available. TECHNIQUE: Following administration of 20.3 miCu of Tc MDP multiplanar whole body images were obtained. FINDINGS: Flow component: Increased flow to the right ankle and right foot Blood pool component: Increased accumulation of radionuclide within the soft tissues of the right ankle Delayed images at 3:00: Retention of radionuclide within the soft tissues of the right ankle in particular the distal fibular region. Other findings: Degenerative changes identified in both knees. IMPRESSION: Findings consistent with cellulitis right ankle/right foot. No evidence of acute osteomyelitis.
--- NOTE | 2017-04-30 11:35 | CP.PCM.PN ---
Subjective - Date & Time of Evaluation Date of Evaluation: 04/30/17 Time of Evaluation: 11:32 - Subjective Subjective: Podiatry progress Note: Dr. Josue 76 year old male patient was seen at bedside this morning with attending Dr. Josue, concerning right lateral decubitus ulceration. Patient states that his pain is well controlled and denies any new onset pain. Denies any acute overnight events. Is AAO x 3 and NAD during examination. Denies any further pedal complaints at this time. Denies any recent N/V/F/C/CP/SOB/D/posterior calf pain when squeezed Objective - Vital Signs/Intake and Output Vital Signs (last 24 hours): Temp Pulse Resp BP Pulse Ox 98.8 F 78 20 118/61 95 04/30/17 08:37 04/30/17 08:37 04/30/17 08:37 04/30/17 08:37 04/30/17 08:37 Intake and Output: 04/30/17 04/30/17 06:59 18:59 Intake Total 450 240 Output Total 350 Balance 100 240 - Medications Medications: Current Medications Aspirin (Ecotrin) 81 mg PO DAILY [facility] Last Admin: 04/30/17 10:38 Dose: 81 mg Bacitracin (Bacitracin) 0 gm TOP DAILY [facility] Last Admin: 04/29/17 09:23 Dose: 1 applic Ciprofloxacin (Cipro) 500 mg PO Q12H [facility] Last Admin: 04/30/17 08:21 Dose: 500 mg Glimepiride (Amaryl) 4 mg PO DAILY [facility] Last Admin: 04/30/17 10:38 Dose: 4 mg Hydromorphone HCl (Dilaudid) 1 mg IVP Q4H PRN PRN Reason: pain Last Admin: 04/30/17 08:21 Dose: 1 mg Insulin Human Regular (Novolin R) 0 unit SC ACHS [facility] PRN Reason: Protocol Last Admin: 04/30/17 08:17 Dose: 3 unit Lisinopril (Zestril) 5 mg PO DAILY [facility] Last Admin: 04/30/17 10:38 Dose: 5 mg Metformin HCl (Glucophage Xr) 500 mg PO BIDCC [facility] Last Admin: 04/30/17 08:13 Dose: 500 mg Mupirocin (Bactroban Ointment) 1 gm TOP BID [facility] Last Admin: 04/29/17 17:41 Dose: 1 applic - Labs Labs: 04/26/17 07:11 04/26/17 07:11 PT 11.2 SECONDS (9.7-12.2) 04/24/17 14:38 INR 1.0 04/24/17 14:38 APTT 32 SECONDS (21-34) 04/24/17 14:38 - Constitutional Appears: Well, Non-toxic, No Acute Distress - Extremities Exam Additional comments: RLE focused exam: DERM: Un stageable decubitus ulceration measuring 2.5 x 1.5cm x 0.3 cm to the lateral aspect of Right foot at the level of 5th metatarsal base with no active purulent drainage, wound base appears necrotic eschar , no serous drainage upon pressing the wound edges, no maceration, no tunneling, mild malodor, minimal troy-wound erythema noted not extending proximally VASC: DP/PT pulses are palpable 1/4 . Cap refill time: < 3 seconds to all digits. Skin temperature warm to warm from proximal to distal. mild non-pitting edema noted on on the foot extending to the ankle with accompanied erythema NEURO: Epicritic and protective sensation grossly intact ORTHO: mild tenderness on palpation of the ulcerated site, Alva's negative, no pain on palpation of the calf, MMT: 5/5 in all 4 directions at the ankle joint - Neurological Exam Neurological Exam: Alert, Awake, Oriented x3 - Psychiatric Exam Psychiatric exam: Normal Affect, Normal Mood Assessment and Plan - Assessment and Plan (Free Text) Assessment: 76 year old male patient seen at bedside for right foot decubitus ulceration, unstageable due to necrotic eschar Plan: Patient seen and evaluated at bedside with attending Dr. Josue Chart reviewed Labs, vitals and charts reviewed - afebrile X-rays of the right foot - No abscess, possible OM CTA Right - Moderate stenosis of common femoral, SFA, Popliteal arteries. Severe stenosis of anterior tibial, posterior tibial, peroneal arteries 2 day s/p Aortofemoral angiogram. Selective catherization of right femoral artery. Atherectomy (CSI 2.0) of common femoral with 6 mm balloon angioplasty. balloon angioplasty 3mm to tibio peroneal trunk by Dr Ordonez WCX: Final- enterobacter cloacae WBC bone scan complete - evidence of cellulitis, no evidence of acute OM to right foot or ankle Wound cleaned using saline and dressing applied using Betadine, DSD cont. Ciprofloxacin as per ID Podiatry will continue to follow patient while in house
[2017-04-30] MEDS: Bacitracin Ointment 30 GM TUBE TOP SCH (12:50)
--- NOTE | 2017-04-30 13:17 | CP.PCM.PN ---
Subjective - Date & Time of Evaluation Date of Evaluation: 04/30/17 Time of Evaluation: 09:00 - Subjective Subjective: IMPROVING OM RIGHT FOOT Objective - Vital Signs/Intake and Output Vital Signs (last 24 hours): Temp Pulse Resp BP Pulse Ox 98.8 F 78 20 118/61 95 04/30/17 08:37 04/30/17 08:37 04/30/17 08:37 04/30/17 08:37 04/30/17 08:37 Intake and Output: 04/30/17 04/30/17 06:59 18:59 Intake Total 450 240 Output Total 350 Balance 100 240 - Medications Medications: Current Medications Aspirin (Ecotrin) 81 mg PO DAILY [facility] Last Admin: 04/30/17 10:38 Dose: 81 mg Bacitracin (Bacitracin) 0 gm TOP DAILY [facility] Last Admin: 04/30/17 12:50 Dose: Not Given Ciprofloxacin (Cipro) 500 mg PO Q12H [facility] Last Admin: 04/30/17 08:21 Dose: 500 mg Glimepiride (Amaryl) 4 mg PO DAILY [facility] Last Admin: 04/30/17 10:38 Dose: 4 mg Hydromorphone HCl (Dilaudid) 1 mg IVP Q4H PRN PRN Reason: pain Last Admin: 04/30/17 08:21 Dose: 1 mg Insulin Human Regular (Novolin R) 0 unit SC ACHS [facility] PRN Reason: Protocol Last Admin: 04/30/17 12:59 Dose: 6 unit Lisinopril (Zestril) 5 mg PO DAILY [facility] Last Admin: 04/30/17 10:38 Dose: 5 mg [facility] Last Admin: 04/30/17 08:13 Dose: 500 mg Mupirocin (Bactroban Ointment) 1 gm TOP BID [facility] Last Admin: 04/30/17 12:50 Dose: Not Given - Labs Labs: 04/26/17 07:11 04/26/17 07:11 PT 11.2 SECONDS (9.7-12.2) 04/24/17 14:38 INR 1.0 04/24/17 14:38 APTT 32 SECONDS (21-34) 04/24/17 14:38 - Constitutional Appears: Non-toxic, Chronically Ill - Head Exam Head Exam: NORMOCEPHALIC - Eye Exam Eye Exam: PERRL - ENT Exam ENT Exam: Mucous Membranes Dry - Neck Exam Neck Exam: absent: Lymphadenopathy - Respiratory Exam Respiratory Exam: Decreased Breath Sounds - Cardiovascular Exam Cardiovascular Exam: REGULAR RHYTHM - GI/Abdominal Exam GI & Abdominal Exam: Distended - Rectal Exam Rectal Exam: Deferred - Exam Exam: NORMAL INSPECTION - Extremities Exam Extremities Exam: absent: Pedal Edema - Back Exam Back Exam: absent: CVA tenderness (L), CVA tenderness (R) - Neurological Exam Neurological Exam: Alert, Awake, Oriented x3 Assessment and Plan (1) Cellulitis Status: Acute (2) Hyperglycemia Status: Acute (3) Non-healing ulcer of foot Status: Acute (4) Hyperglycemia without ketosis Status: Acute (5) Leg pain, bilateral Status: Acute (6) Ulcer Status: Acute (7) Osteomyelitis Status: Acute - Assessment and Plan (Free Text) Assessment: CONT RX OM
--- NOTE | 2017-04-30 14:57 | CP.PCM.PN ---
Subjective - Date & Time of Evaluation Date of Evaluation: 04/30/17 Time of Evaluation: 07:10 - Subjective Subjective: clinically same Objective - Vital Signs/Intake and Output Vital Signs (last 24 hours): Temp Pulse Resp BP Pulse Ox 98.8 F 78 20 118/61 95 04/30/17 08:37 04/30/17 08:37 04/30/17 08:37 04/30/17 08:37 04/30/17 08:37 Intake and Output: 04/30/17 04/30/17 06:59 18:59 Intake Total 450 240 Output Total 350 Balance 100 240 - Medications Medications: Current Medications Aspirin (Ecotrin) 81 mg PO DAILY [facility] Last Admin: 04/30/17 10:38 Dose: 81 mg Bacitracin (Bacitracin) 0 gm TOP DAILY [facility] Last Admin: 04/30/17 12:50 Dose: Not Given Ciprofloxacin (Cipro) 500 mg PO Q12H [facility] Last Admin: 04/30/17 08:21 Dose: 500 mg Famotidine (Pepcid) 20 mg PO DAILY [facility] Glimepiride (Amaryl) 4 mg PO DAILY [facility] Last Admin: 04/30/17 10:38 Dose: 4 mg Hydromorphone HCl (Dilaudid) 1 mg IVP Q4H PRN PRN Reason: pain Last Admin: 04/30/17 08:21 Dose: 1 mg Insulin Human Regular (Novolin R) 0 unit SC ACHS [facility] PRN Reason: Protocol Last Admin: 04/30/17 12:59 Dose: 6 unit Lisinopril (Zestril) 5 mg PO DAILY [facility] Last Admin: 04/30/17 10:38 Dose: 5 mg Metformin HCl (Glucophage Xr) [facility] Last Admin: 04/30/17 08:13 Dose: 500 mg Mupirocin (Bactroban Ointment) 1 gm TOP BID [facility] Last Admin: 04/30/17 12:50 Dose: Not Given - Labs Labs: 04/26/17 07:11 04/26/17 07:11 PT 11.2 SECONDS (9.7-12.2) 04/24/17 14:38 INR 1.0 04/24/17 14:38 APTT 32 SECONDS (21-34) 04/24/17 14:38 - Constitutional Appears: Well - Head Exam Head Exam: ATRAUMATIC, NORMAL INSPECTION, NORMOCEPHALIC - Eye Exam Eye Exam: EOMI, Normal appearance, PERRL Pupil Exam: NORMAL ACCOMODATION, PERRL - ENT Exam ENT Exam: Mucous Membranes Moist, Normal Exam - Neck Exam Neck Exam: Full ROM, Normal Inspection. absent: Lymphadenopathy - Respiratory Exam Respiratory Exam: Decreased Breath Sounds - Cardiovascular Exam Cardiovascular Exam: REGULAR RHYTHM, +S1, +S2 - GI/Abdominal Exam GI & Abdominal Exam: Soft, Diminished Bowel Sounds - Rectal Exam Rectal Exam: Deferred Assessment and Plan (1) Cellulitis Status: Acute (2) Hyperglycemia Status: Acute (3) Non-healing ulcer of foot Status: Acute (4) Osteomyelitis Status: Acute (5) Ankle fracture, right Status: Acute (6) Ankle pain Status: Acute (7) Hyperglycemia without ketosis Status: Acute (8) Leg pain, bilateral Status: Acute (9) Ulcer Status: Acute - Assessment and Plan (Free Text) Plan: RLE cellulitis Podiatry consult placed-Dr. Liat sandoval appreciated WCX: enterobacter cloacae Wound dressings- saline and dressing applied using Betadine, DSD, Bacitracin Will continue to follow Vascular consult placed-Dr. Mery sandoval appreciated Right CARA 0.86, Left CARA 0.77 with mild to moderate arterial insufficiency CTA- Moderate stenosis of common femoral, SFA, Popliteal arteries. Severe stenosis of anterior tibial, posterior tibial, peroneal arteries MRI switched to bonescan but patient refused Angiography (R)- mod stenosis of common femoral art, Mod stenosis @ origin of SFA. 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 severe tibial disease with small posterior tibial as major target vessel in foot. ID consult placed-Dr. Usman sandoval appreciated Cipro 500mg PO q12hrs BONE SCAN NEG CONT ANTIBIOTICS PO FOR NOW FOLLOW UP WITH VASCUILAR AND PODIATRY RECC MRI CERETEC MAY GIVE FALSE NEG RESULTS IN SETTING OF PVD Lower extremity duplex- negative for DVT Labs, vitals and charts reviewed - afebrile, WBC @ 6.9 on most recent labs X-rays of the right foot- Void in the soft tissue with radiolucency at the site of the wound but no presence of soft tissue emphysema. Periosteal giovanna reaction noted at the styloid process of the 5th metatarsal possibly indicating acute OM Dilaudid 1mg IV q4hrs DM Glimeperide 4mg PO daily Lisinopril 5mg PO daily Metformin 500mg PO BID [facility] Prophylaxis Pepcid 20mg PO daily Planning for D/C to rehab. refuses to do mri again as pt cant stay in one position for that long podiatry ksenia as ordered vcase seen and d.w staff and resident..
[2017-05-01 06:21] LABS: BASO # 0.1 K/uL (0.0-0.2); BASO % 0.5 % (0.0-2.0); EOS # 0.2 K/uL (0.0-0.7); EOS % 1.3 % (0.0-4.0); LYMPH # 2.6 K/uL (1.0-4.3); MEAN CELL VOLUME 91.8 fL (80.0-94.0); MEAN CORPUSCULAR HEMOGLOBIN 31.2 pg (27.0-31.0); MEAN PLATELET VOLUME 8.3 fL (7.2-11.7); MONO % 8.5 % (0.0-10.0); NEUT # 7.9 K/uL (1.8-7.0); NEUT % 67.7 % (50.0-75.0); RBC 4.16 Mil/uL (4.40-5.90); RED CELL DISTRIBUTION WIDTH 13.5 % (11.5-14.5); WHITE BLOOD COUNT 11.7 K/uL (4.8-10.8)
[2017-05-01 06:56] LABS: ALB/GLOB RATIO 1.1 (1.0-2.1); ALBUMIN 3.8 g/dL (3.5-5.0); ALT/SGPT 35 U/L (21-72); AST/SGOT 19 U/L (17-59); BLOOD UREA NITROGEN 31 mg/dL (9-20); CALCIUM 9.2 mg/dl (8.6-10.4); GFR AFRICAN-AMERICAN > 60; GFR NON-AFRICAN AMERICAN 59
[2017-05-01] MEDS: (Novolin R) Insulin Human Regular 100 units/ml vial SC SCH ×4 (08:17→21:43)
--- NOTE | 2017-05-01 08:50 | CP.PCM.PN ---
Subjective - Date & Time of Evaluation Date of Evaluation: 05/01/17 Time of Evaluation: 08:47 - Subjective Subjective: Podiatry progress Note: Dr. Josue 76 year old male patient was seen at bedside this morning with attending Dr. Josue, concerning right lateral decubitus ulceration. Patient states that his pain is well controlled and denies any new onset pain. Denies any acute overnight events. Is AAO x 3 and NAD during examination. Denies any further pedal complaints at this time. Denies any recent N/V/F/C/CP/SOB/D/posterior calf pain when squeezed Objective - Vital Signs/Intake and Output Vital Signs (last 24 hours): Temp Pulse Resp BP Pulse Ox 98.1 F 78 20 137/78 96 05/01/17 07:41 05/01/17 07:41 05/01/17 07:41 05/01/17 07:41 05/01/17 07:41 Intake and Output: 05/01/17 05/01/17 06:59 18:59 Intake Total 640 Balance 640 - Medications Medications: Current Medications Aspirin (Ecotrin) 81 mg PO DAILY [facility] Last Admin: 04/30/17 10:38 Dose: 81 mg Bacitracin (Bacitracin) 0 gm TOP DAILY [facility] Last Admin: 04/30/17 12:50 Dose: Not Given Ciprofloxacin (Cipro) 500 mg PO Q12H [facility] Last Admin: 04/30/17 21:37 Dose: 500 mg Famotidine (Pepcid) 20 mg PO DAILY [facility] Glimepiride (Amaryl) 4 mg PO DAILY [facility] Last Admin: 04/30/17 10:38 Dose: 4 mg Hydromorphone HCl (Dilaudid) 1 mg IVP Q4H PRN PRN Reason: pain Last Admin: 04/30/17 08:21 Dose: 1 mg Hydromorphone HCl (Dilaudid) 2 mg IVP Q4H PRN PRN Reason: GIVE 30 MIN BEFORE MRI ONCE Stop: 05/02/17 01:00 Insulin Human Regular (Novolin R) 0 unit SC ACHS [facility] PRN Reason: Protocol Last Admin: 05/01/17 08:17 Dose: 3 unit Lisinopril (Zestril) 5 mg PO DAILY [facility] Last Admin: 04/30/17 10:38 Dose: 5 mg Metformin HCl (Glucophage Xr) [facility] Last Admin: 05/01/17 08:17 Dose: 500 mg Mupirocin (Bactroban Ointment) 1 gm TOP BID [facility] Last Admin: 04/30/17 17:42 Dose: 1 applic - Labs Labs: 05/01/17 06:16 05/01/17 06:16 PT 11.2 SECONDS (9.7-12.2) 04/24/17 14:38 INR 1.0 04/24/17 14:38 APTT 32 SECONDS (21-34) 04/24/17 14:38 - Constitutional Appears: Well, Non-toxic, No Acute Distress - Extremities Exam Additional comments: RLE focused exam: DERM: Unstageable decubitus ulceration measuring 2.5 x 1.5cm x 0.3 cm to the lateral aspect of Right foot at the level of 5th metatarsal base with no active purulent drainage, wound base appears necrotic eschar , no serous drainage upon pressing the wound edges, no maceration, no tunneling, mild malodor, minimal troy-wound erythema noted not extending proximally VASC: DP/PT pulses are palpable 1/4 . Cap refill time: < 3 seconds to all digits. Skin temperature warm to warm from proximal to distal. mild non-pitting edema noted on on the foot extending to the ankle with accompanied erythema NEURO: Epicritic and protective sensation grossly intact ORTHO: mild tenderness on palpation of the ulcerated site, Alva's negative, no pain on palpation of the calf, MMT: 5/5 in all 4 directions at the ankle joint - Neurological Exam Neurological Exam: Alert, Awake, Oriented x3 Assessment and Plan - Assessment and Plan (Free Text) Assessment: 76 year old male patient seen at bedside for right foot decubitus ulceration, unstageable due to necrotic eschar Plan: Patient seen and evaluated at bedside with attending Dr. Josue Chart reviewed Labs, vitals and charts reviewed - afebrile X-rays of the right foot - No abscess, possible OM CTA Right - Moderate stenosis of common femoral, SFA, Popliteal arteries. Severe stenosis of anterior tibial, posterior tibial, peroneal arteries 2 day s/p Aortofemoral angiogram. Selective catherization of right femoral artery. Atherectomy (CSI 2.0) of common femoral with 6 mm balloon angioplasty. balloon angioplasty 3mm to tibio peroneal trunk by Dr Ordonez WCX: Final- enterobacter cloacae WBC bone scan complete - evidence of cellulitis, no evidence of acute OM to right foot or ankle Wound cleaned using saline and dressing applied using Betadine, DSD cont. Ciprofloxacin as per ID patient to OR tomorrow for debridement of right foot with Dr. Josue NPO after midnight awaiting medical optimization stressed to patient importance of glucose control for wound healing Podiatry will continue to follow patient while in house
--- NOTE | 2017-05-01 11:46 | RAD ---
PROCEDURE: CHEST RADIOGRAPH, 1 VIEW HISTORY: pre-op COMPARISON: 06/08/2014 FINDINGS: LUNGS: Clear. PLEURA: No pneumothorax or pleural fluid seen. CARDIOVASCULAR: Normal. OSSEOUS STRUCTURES: No significant abnormalities. VISUALIZED UPPER ABDOMEN: Normal. OTHER FINDINGS: None. IMPRESSION: No active disease.
--- NOTE | 2017-05-01 12:04 | CP.PCM.PCO ---
Physician Communication Note - Physician Communication Note Physician Communication Note: Patient is medically cleared for the podiatry procedure as per DR Rubin Tello.
[2017-05-01] MEDS: Bacitracin Ointment 30 GM TUBE TOP SCH (12:18)
--- NOTE | 2017-05-01 12:29 | CP.PCM.PN ---
Subjective - Date & Time of Evaluation Date of Evaluation: 05/01/17 Time of Evaluation: 08:00 - Subjective Subjective: discussed on rounds wound probres to bone needs careful out pt follow up 'cont antibiotics and consider MRI foot as out pt Objective - Vital Signs/Intake and Output Vital Signs (last 24 hours): Temp Pulse Resp BP Pulse Ox 98.1 F 78 20 137/78 96 05/01/17 07:41 05/01/17 07:41 05/01/17 07:41 05/01/17 07:41 05/01/17 07:41 Intake and Output: 05/01/17 05/01/17 06:59 18:59 Intake Total 640 Balance 640 - Medications Medications: Current Medications Aspirin (Ecotrin) 81 mg PO DAILY [facility] Last Admin: 05/01/17 10:19 Dose: Not Given Bacitracin (Bacitracin) 0 gm TOP DAILY [facility] Last Admin: 05/01/17 12:18 Dose: Not Given Ciprofloxacin (Cipro) 500 mg PO Q12H [facility] Last Admin: 05/01/17 09:18 Dose: Not Given Famotidine (Pepcid) 20 mg PO DAILY [facility] Last Admin: 05/01/17 10:19 Dose: Not Given Glimepiride (Amaryl) 4 mg PO DAILY [facility] Last Admin: 05/01/17 10:17 Dose: Not Given Hydromorphone HCl (Dilaudid) 1 mg IVP Q4H PRN PRN Reason: pain Last Admin: 04/30/17 08:21 Dose: 1 mg Hydromorphone HCl (Dilaudid) 2 mg IVP Q4H PRN PRN Reason: GIVE 30 MIN BEFORE MRI ONCE Stop: 05/02/17 01:00 Insulin Human Regular (Novolin R) 0 unit SC [facility] PRN Reason: Protocol Last Admin: 05/01/17 12:19 Dose: Not Given Lisinopril (Zestril) 5 mg PO DAILY [facility] Last Admin: 05/01/17 10:20 Dose: Not Given [facility]) [facility] Last Admin: 05/01/17 08:17 Dose: 500 mg Mupirocin (Bactroban Ointment) 1 gm TOP BID [facility] Last Admin: 05/01/17 12:19 Dose: Not Given - Labs Labs: 05/01/17 06:16 05/01/17 06:16 PT 11.2 SECONDS (9.7-12.2) 04/24/17 14:38 INR 1.0 04/24/17 14:38 APTT 32 SECONDS (21-34) 04/24/17 14:38 Assessment and Plan (1) Cellulitis Status: Acute (2) Hyperglycemia Status: Acute (3) Non-healing ulcer of foot Status: Acute (4) Hyperglycemia without ketosis Status: Acute (5) Leg pain, bilateral Status: Acute (6) Ulcer Status: Acute (7) Osteomyelitis Status: Acute
--- NOTE | 2017-05-01 13:12 | CP.PCM.PN ---
Subjective - Date & Time of Evaluation Date of Evaluation: 05/01/17 Time of Evaluation: 07:20 - Subjective Subjective: clinically same Objective - Vital Signs/Intake and Output Vital Signs (last 24 hours): Temp Pulse Resp BP Pulse Ox 98.1 F 78 20 137/78 96 05/01/17 07:41 05/01/17 07:41 05/01/17 07:41 05/01/17 07:41 05/01/17 07:41 Intake and Output: 05/01/17 05/01/17 06:59 18:59 Intake Total 640 Balance 640 - Medications Medications: Current Medications Aspirin (Ecotrin) 81 mg PO DAILY [facility] Last Admin: 05/01/17 10:19 Dose: Not Given Bacitracin (Bacitracin) 0 gm TOP DAILY [facility] Last Admin: 05/01/17 12:18 Dose: Not Given Ciprofloxacin (Cipro) 500 mg PO Q12H [facility] Last Admin: 05/01/17 09:18 Dose: Not Given Famotidine (Pepcid) 20 mg PO DAILY [facility] Last Admin: 05/01/17 10:19 Dose: Not Given Glimepiride (Amaryl) 4 mg PO DAILY [facility] Last Admin: 05/01/17 10:17 Dose: Not Given Hydromorphone HCl (Dilaudid) 1 mg IVP Q4H PRN PRN Reason: pain Last Admin: 04/30/17 08:21 Dose: 1 mg Hydromorphone HCl (Dilaudid) 2 mg IVP Q4H PRN PRN Reason: GIVE 30 MIN BEFORE MRI ONCE Stop: 05/02/17 01:00 Insulin Human Regular (Novolin R) 0 unit SC ACHS [facility] PRN Reason: Protocol Last Admin: 05/01/17 12:19 Dose: Not Given Lisinopril (Zestril) 5 mg PO DAILY [facility] Last Admin: 05/01/17 10:20 Dose: Not Given [facility]) [facility] Last Admin: 05/01/17 08:17 Dose: 500 mg Mupirocin (Bactroban Ointment) 1 gm TOP BID [facility] Last Admin: 05/01/17 12:19 Dose: Not Given - Labs Labs: 05/01/17 06:16 05/01/17 06:16 PT 11.2 SECONDS (9.7-12.2) 04/24/17 14:38 INR 1.0 04/24/17 14:38 APTT 32 SECONDS (21-34) 04/24/17 14:38 - Constitutional Appears: Well - Head Exam Head Exam: ATRAUMATIC, NORMAL INSPECTION, NORMOCEPHALIC - Eye Exam Eye Exam: EOMI, Normal appearance, PERRL Pupil Exam: NORMAL ACCOMODATION, PERRL - ENT Exam ENT Exam: Mucous Membranes Moist, Normal Exam - Neck Exam Neck Exam: Full ROM, Normal Inspection. absent: Lymphadenopathy - Respiratory Exam Respiratory Exam: Decreased Breath Sounds - Cardiovascular Exam Cardiovascular Exam: REGULAR RHYTHM, +S1, +S2 - GI/Abdominal Exam GI & Abdominal Exam: Soft, Diminished Bowel Sounds - Rectal Exam Rectal Exam: Deferred Assessment and Plan (1) Cellulitis Status: Acute (2) Hyperglycemia Status: Acute (3) Non-healing ulcer of foot Status: Acute (4) Osteomyelitis Status: Acute (5) Ankle fracture, right Status: Acute (6) Ankle pain Status: Acute (7) Hyperglycemia without ketosis Status: Acute (8) Leg pain, bilateral Status: Acute (9) Ulcer Status: Acute - Assessment and Plan (Free Text) Plan: RLE cellulitis Podiatry consult placed-Dr. Liat sandoval appreciated WCX: enterobacter cloacae Wound dressings- saline and dressing applied using Betadine, DSD, Bacitracin Will continue to follow Patient to OR 05/02 for debridement of right foot Medically cleared as per Dr. Rubin Tello Vascular consult placed-Dr. Mery sandoval appreciated Right CARA 0.86, Left CARA 0.77 with mild to moderate arterial insufficiency CTA- Moderate stenosis of common femoral, SFA, Popliteal arteries. Severe stenosis of anterior tibial, posterior tibial, peroneal arteries MRI switched to bonescan but patient refused Angiography (R)- mod stenosis of common femoral art, Mod stenosis @ origin of SFA. 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 severe tibial disease with small posterior tibial as major target vessel in foot. ID consult placed-Dr. Usman sandoval appreciated Cipro 500mg PO q12hrs as per ID infection has likely reached the bone as per ID patient will need close follow up and continued abx upon d/c Lower extremity duplex- negative for DVT Labs, vitals and charts reviewed - afebrile, WBC @ 6.9 on most recent labs X-rays of the right foot- Void in the soft tissue with radiolucency at the site of the wound but no presence of soft tissue emphysema. Periosteal giovanna reaction noted at the styloid process of the 5th metatarsal possibly indicating acute OM Patient has agreed to have MRI of RLE with the stipulation of aggressive pain control with 2mg IV dilaudid 30min prior to exam Dilaudid 1mg IV q4hrs Patient medically stable for debridement today Discussed with the staff DM Glimeperide 4mg PO daily Lisinopril 5mg PO daily Metformin 500mg PO BID [facility] Prophylaxis Pepcid 20mg PO daily
[2017-05-01] MEDS ORDERED: Lidocaine 2% Inj (20ml) ONE (14:56)
[2017-05-01] MEDS ORDERED: Bupivacaine HCl 0.5% PF (10 ml) Inj ONE (14:56)
--- NOTE | 2017-05-01 15:05 | CP.PCM.PN ---
<Se Sierra - Last Filed: 05/01/17 15:03> Subjective - Date & Time of Evaluation Date of Evaluation: 05/01/17 Time of Evaluation: 15:03 - Subjective Subjective: Progress note for Dr. Tello's Service Pt seen and examined at bedside. He states that he is feeling well. His dressing was just recently changed as per the patient. He states his pain is well controlled. When questioned about why he refused MRI before he states that it was too painful. He agrees that he will have the MRI done with higher dose of pain medications. Agreed on 2mg IV dilaudid 30min prior to MRI. Objective - Vital Signs/Intake and Output Vital Signs (last 24 hours): Temp Pulse Resp BP Pulse Ox 98.1 F 78 20 137/78 96 05/01/17 07:41 05/01/17 07:41 05/01/17 07:41 05/01/17 07:41 05/01/17 07:41 Intake and Output: 05/01/17 05/01/17 06:59 18:59 Intake Total 640 Balance 640 - Medications Medications: Current Medications Aspirin (Ecotrin) 81 mg PO DAILY [facility] Last Admin: 05/01/17 10:19 Dose: Not Given Bacitracin (Bacitracin) 0 gm TOP DAILY [facility] Last Admin: 05/01/17 12:18 Dose: Not Given Ciprofloxacin (Cipro) 500 mg PO Q12H [facility] Last Admin: 05/01/17 09:18 Dose: Not Given Famotidine (Pepcid) 20 mg PO DAILY [facility] Last Admin: 05/01/17 10:19 Dose: Not Given Glimepiride (Amaryl) 4 mg PO DAILY [facility] Last Admin: 05/01/17 10:17 Dose: Not Given Hydromorphone HCl (Dilaudid) 1 mg IVP Q4H PRN PRN Reason: pain Last Admin: 04/30/17 08:21 Dose: 1 mg Hydromorphone HCl (Dilaudid) 2 mg IVP Q4H PRN PRN Reason: GIVE 30 MIN BEFORE MRI ONCE Stop: 05/02/17 01:00 Hydromorphone HCl (Dilaudid) 0.5 mg IVP Q5M PRN PRN Reason: Pain, Mild (1-3) Stop: 05/01/17 16:49 Insulin Human Regular (Novolin R) 0 unit SC ACHS [facility] PRN Reason: Protocol Last Admin: 05/01/17 12:19 Dose: Not Given Lisinopril (Zestril) 5 mg PO DAILY [facility] Last Admin: 05/01/17 10:20 Dose: Not Given Met[facility]) [facility] Last Admin: 05/01/17 08:17 Dose: 500 mg Mupirocin (Bactroban Ointment) 1 gm TOP BID [facility] Last Admin: 05/01/17 12:19 Dose: Not Given - Labs Labs: 05/01/17 06:16 05/01/17 06:16 PT 11.2 SECONDS (9.7-12.2) 04/24/17 14:38 INR 1.0 04/24/17 14:38 APTT 32 SECONDS (21-34) 04/24/17 14:38 - Constitutional Appears: No Acute Distress - Head Exam Head Exam: ATRAUMATIC, NORMOCEPHALIC - Eye Exam Eye Exam: EOMI - ENT Exam ENT Exam: Mucous Membranes Moist - Respiratory Exam Respiratory Exam: Clear to Ausculation Bilateral, NORMAL BREATHING PATTERN - Cardiovascular Exam Cardiovascular Exam: REGULAR RHYTHM, +S1, +S2 - GI/Abdominal Exam GI & Abdominal Exam: Soft. absent: Tenderness - Extremities Exam Additional comments: dressing C/D/I - Neurological Exam Neurological Exam: Alert, Awake, Oriented x3 - Psychiatric Exam Psychiatric exam: Normal Affect, Normal Mood - Skin Skin Exam: Dry, Warm Assessment and Plan - Assessment and Plan (Free Text) Plan: RLE cellulitis Podiatry consult placed-Dr. Liat sandoval appreciated WCX: enterobacter cloacae Wound dressings- saline and dressing applied using Betadine, DSD, Bacitracin Will continue to follow Patient to [place] 05/02 for debridement of right foot Medically cleared as per Dr. Rubin Tello Vascular consult placed-Dr. Mery sandoval appreciated Right CARA 0.86, Left CARA 0.77 with mild to moderate arterial insufficiency CTA- Moderate stenosis of common femoral, SFA, Popliteal arteries. Severe stenosis of anterior tibial, posterior tibial, peroneal arteries MRI switched to bonescan but patient refused Angiography (R)- mod stenosis of common femoral art, Mod stenosis @ origin of SFA. 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 severe tibial disease with small posterior tibial as major target vessel in foot. ID consult placed-Dr. Usman sandoval appreciated Cipro 500mg PO q12hrs as per ID infection has likely reached the bone as per ID patient will need close follow up and continued abx upon d/c Lower extremity duplex- negative for DVT Labs, vitals and charts reviewed - afebrile, WBC @ 6.9 on most recent labs X-rays of the right foot- Void in the soft tissue with radiolucency at the site of the wound but no presence of soft tissue emphysema. Periosteal giovanna reaction noted at the styloid process of the 5th metatarsal possibly indicating acute OM Patient has agreed to have MRI of RLE with the stipulation of aggressive pain control with 2mg IV dilaudid 30min prior to exam Dilaudid 1mg IV q4hrs DM Glimeperide 4mg PO daily Lisinopril 5mg PO daily Metformin 500mg PO BID [facility] Prophylaxis Pepcid 20mg PO daily Case discussed with Dr. Tello All management as per Dr. Tello <Rashida Tello S - Last Filed: 05/04/17 07:10> Objective - Vital Signs/Intake and Output Vital Signs (last 24 hours): Temp Pulse Resp BP Pulse Ox 98 F 80 20 123/67 96 05/04/17 00:00 05/04/17 00:00 05/04/17 00:00 05/04/17 00:00 05/04/17 00:00 Intake and Output: 05/04/17 05/04/17 06:59 18:59 Intake Total 450 Output Total 1200 Balance -750 - Medications Medications: Current Medications Aspirin (Ecotrin) 81 mg PO DAILY [facility] Last Admin: 05/03/17 10:42 Dose: 81 mg Bacitracin (Bacitracin) 0 gm TOP DAILY [facility] Last Admin: 05/03/17 10:43 Dose: 1 applic Ciprofloxacin (Cipro) 500 mg PO Q12H [facility] Last Admin: 05/03/17 21:21 Dose: 500 mg Famotidine (Pepcid) 20 mg PO DAILY [facility] Last Admin: 05/03/17 10:42 Dose: 20 mg Glimepiride (Amaryl) 4 mg PO DAILY [facility] Last Admin: 05/03/17 10:42 Dose: 4 mg Hydromorphone HCl (Dilaudid) 1 mg IVP Q4H PRN PRN Reason: pain Last Admin: 05/04/17 04:09 Dose: 1 mg Insulin Human Regular (Novolin R) 0 unit SC ACHS [facility] PRN Reason: Protocol Last Admin: 05/03/17 21:38 Dose: Not Given Lisinopril (Zestril) 5 mg PO DAILY [facility] Last Admin: 05/03/17 10:42 Dose: 5 mg Metformin HCl (Glucophage Xr) [facility] Last Admin: 05/03/17 17:19 Dose: 500 mg Mupirocin (Bactroban Ointment) 1 gm TOP BID [facility] Last Admin: 05/03/17 17:19 Dose: 1 applic Silver Sulfadiazine (Silvadene 1% 20 Gm) 0 ea TOP DAILY [facility] Last Admin: 05/03/17 10:43 Dose: 1 applic - Labs Labs: 05/04/17 06:29 05/03/17 06:57 PT 11.2 SECONDS (9.7-12.2) 04/24/17 14:38 INR 1.0 04/24/17 14:38 APTT 32 SECONDS (21-34) 04/24/17 14:38 Assessment and Plan (1) Cellulitis Status: Acute (2) Hyperglycemia Status: Acute (3) Non-healing ulcer of foot Status: Acute (4) Osteomyelitis Status: Acute (5) Ankle fracture, right Status: Acute (6) Ankle pain Status: Acute (7) Hyperglycemia without ketosis Status: Acute (8) Leg pain, bilateral Status: Acute (9) Ulcer Status: Acute Attending/Attestation - Attestation I have personally seen and examined this patient.: Yes I have fully participated in the care of the patient.: Yes I have reviewed all pertinent clinical information, including history, physical exam and plan: Yes Notes (Text): 05/04/17 07:10 case seen and d.w staff and resident, concurred with finding and management.. Patient medically stable for debridement today
[2017-05-01] MEDS: Bupivacaine HCl 0.5% PF (10 ml) Inj ONE ×2 (15:25→15:45)
[2017-05-01] MEDS ORDERED: Propofol 10 mg/ml Inj (20 ML) ONE (15:35)
--- NOTE | 2017-05-01 16:22 | PCM.SURG1 ---
Surgeon's Initial Post Op Note - Surgeon's Notes Surgeon: Dr. Josue Technical Sales Director: Dr. Stanford PGY-2 Type of Anesthesia: IV Sedation, Local Anesthesia Administered By: Dr. Harvey Pre-Operative Diagnosis: right foot nonhealing wound Operative Findings: see dictation Post-Operative Diagnosis: same Operation Performed: right foot wound debridement with vac application Specimen/Specimens Removed: soft tissue Estimated Blood Loss: EBL {In ML}: 5 Blood Products Given: N/A Drains Used: No Drains Post-Op Condition: Good Date of Surgery/Procedure: 05/01/17 Time of Surgery/Procedure: 16:22
[2017-05-01] MEDS: HYDROmorphone 0.5 mg/0.5 ml ISec IVP PRN ×2 (16:37→16:54)
[2017-05-01] MEDS ORDERED: Silver Sulfadiazine 1% Cream (20 gm) ONE (16:47)
[2017-05-01] MEDS: HYDROmorphone 1 mg/ml ISec IVP PRN (21:35)
[2017-05-02] MEDS: HYDROmorphone 1 mg/ml ISec IVP PRN ×5 (01:45→18:40)
--- NOTE | 2017-05-02 06:05 | OP ---
PROCEDURE DATE: 05/01/2017 PREOPERATIVE DIAGNOSIS: Right foot nonhealing wound. POSTOPERATIVE DIAGNOSIS: Right foot nonhealing wound. PROCEDURE: Right foot wound debridement. SURGEON: Lee Josue DPM CUSTOMER RELATIONS SPECIALIST: Anjali Stanford DPM, PGY-2. COFFEE SOMMELIER: Asia Acosta M.D. ANESTHESIA: IV sedation with local. INDICATIONS: The patient is a 76-year-old male with the above-mentioned diagnosis. The patient has exhausted multiple forms of conservative treatment at this time and now requires surgical intervention. The patient signed the consent after careful explanation of risk, benefits, and complications for the surgical procedure. No guarantees were given nor implied; n.p.o. status was confirmed prior to bring the patient to the operating room. The patient's glucose level was 248 prior to the start of surgery. PREPARATION: The patient was brought into the operating room and placed on the operating room table in a supine position. Time-out was performed for identification of the correct patient and procedure. After induction of IV sedation, the patient received a total of 20 mL of a 1:1 mixture of 0.25% Marcaine plain and 2% lidocaine plain in a local block-type fashion to the right foot. The right lower extremity was then prepped and draped in normal sterile manner and the procedure began. No tourniquet was used during the procedure. DESCRIPTION OF PROCEDURE: Attention was directed to the lateral aspect of the right foot, where an ulceration was located. The ulceration measured approximately 3 x 2.5 cm with a necrotic eschar. Using a #15 blade, the Eschar was circumferentially and excisionally debrided down to bleeding fibrous tissue. The peroneus brevis tendon was noted upon excision of the necrotic tissues, and it was debrided off all nonviable tissue. The nonviable tissue was then passed off the operative blanchard and sent to pathology. Wound cultures both aerobic and anaerobic were taken as well as specimens and all sent to pathology. Using a versajet levels 3 and 5, the base of the ulceration was nonexcisionally debrided of all fibrotic and nonviable tissue until fresh healthy bleeding granular tissue appeared at the surgical field. The ulceration site was then irrigated with 3 L of saline via a pulse lavage. Next, the wound VAC was applied to the ulceration site and initiated at 125 mmHg continuously. The postoperative dressing including 4 x 4 gauze, Kerlix, and Jaxon bandage was applied to the right lower extremity. POSTOPERATIVE CONDITION: The patient tolerated the anesthesia and the procedure well and was escorted to the recovery room with vital signs stable and neurovascular status intact to the right foot. In the recovery room, the wound VAC was discontinued and Silvadene, Xeroform, 4 x 4 gauze, Kerlix, and Jaxon bandage was applied to the right foot. The patient will be followed while he remains in-house. Anjali Stanford DPM Lee Josue DPM MIKEY
--- NOTE | 2017-05-02 07:34 | CP.PCM.PN ---
<Se Sierra S - Last Filed: 05/02/17 09:32> Subjective - Date & Time of Evaluation Date of Evaluation: 05/02/17 Time of Evaluation: 07:34 - Subjective Subjective: Progress Note for Dr. Tello's Service Pt seen and examined at bedside. He is POD 1 s/p debridement with vac application. He states that he had some pain following the procedure yesterday evening but he is feeling much better today. He continues to have pain in the RLE but meds control it. He states that he does not want MRI because it is too painful and that he was told by podiatry that he will not need MRI any longer. Objective - Vital Signs/Intake and Output Vital Signs (last 24 hours): Temp Pulse Resp BP Pulse Ox 97.7 F 68 20 149/80 98 05/02/17 00:00 05/02/17 00:00 05/02/17 00:00 05/02/17 00:00 05/02/17 00:00 Intake and Output: 05/02/17 05/02/17 06:59 18:59 Intake Total 700 180 Balance 700 180 - Medications Medications: Current Medications Aspirin (Ecotrin) 81 mg PO DAILY [facility] Last Admin: 05/01/17 10:19 Dose: Not Given Bacitracin (Bacitracin) 0 gm TOP DAILY [facility] Last Admin: 05/01/17 12:18 Dose: Not Given Ciprofloxacin (Cipro) 500 mg PO Q12H [facility] Last Admin: 05/01/17 21:35 Dose: 500 mg Famotidine (Pepcid) 20 mg PO DAILY [facility] Last Admin: 05/01/17 10:19 Dose: Not Given Glimepiride (Amaryl) 4 mg PO DAILY [facility] Last Admin: 05/01/17 10:17 Dose: Not Given Hydromorphone HCl (Dilaudid) 1 mg IVP Q4H PRN PRN Reason: pain Last Admin: 05/02/17 06:06 Dose: 1 mg Insulin Human Regular (Novolin R) 0 unit SC ACHS [facility] PRN Reason: Protocol Last Admin: 05/01/17 21:43 Dose: Not Given Lisinopril (Zestril) 5 mg PO DAILY [facility] Last Admin: 05/01/17 10:20 Dose: Not Given Metformin HCl (Glucophage Xr) 500 mg PO BIDCC [facility] Last Admin: 05/01/17 18:28 Dose: 500 mg Mupirocin (Bactroban Ointment) 1 gm TOP BID [facility] Last Admin: 05/01/17 21:40 Dose: Not Given Silver Sulfadiazine (Silvadene 1% 20 Gm) 0 ea TOP DAILY [facility] - Labs Labs: 05/01/17 06:16 05/01/17 06:16 PT 11.2 SECONDS (9.7-12.2) 04/24/17 14:38 INR 1.0 04/24/17 14:38 APTT 32 SECONDS (21-34) 04/24/17 14:38 - Constitutional Appears: No Acute Distress - Head Exam Head Exam: ATRAUMATIC, NORMOCEPHALIC - Eye Exam Eye Exam: EOMI - ENT Exam ENT Exam: Mucous Membranes Moist - Respiratory Exam Respiratory Exam: Clear to Ausculation Bilateral, NORMAL BREATHING PATTERN. absent: Rales, Rhonchi, Wheezes - Cardiovascular Exam Cardiovascular Exam: REGULAR RHYTHM - GI/Abdominal Exam GI & Abdominal Exam: Soft. absent: Distended, Tenderness - Extremities Exam Additional comments: dressing c/d/i - Neurological Exam Neurological Exam: Alert, Awake, Oriented x3 - Psychiatric Exam Psychiatric exam: Normal Affect, Normal Mood - Skin Skin Exam: Dry, Warm Assessment and Plan - Assessment and Plan (Free Text) Plan: RLE cellulitis Podiatry consult placed-Dr. Liat sandoval appreciated WCX: enterobacter cloacae Wound dressings- saline and dressing applied using Betadine, DSD, Bacitracin POD 1 s/p debridement of right foot tolerated procedure well Vascular consult placed-Dr. Mery sandoval appreciated Right CARA 0.86, Left CARA 0.77 with mild to moderate arterial insufficiency CTA- Moderate stenosis of common femoral, SFA, Popliteal arteries. Severe stenosis of anterior tibial, posterior tibial, peroneal arteries MRI switched to bonescan but patient refused Angiography (R)- mod stenosis of common femoral art, Mod stenosis @ origin of SFA. 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 severe tibial disease with small posterior tibial as major target vessel in foot. ID consult placed-Dr. Usman sandoval appreciated Cipro 500mg PO q12hrs as per ID infection has likely reached the bone as per ID patient will need close follow up and continued abx upon d/c Lower extremity duplex- negative for DVT Labs, vitals and charts reviewed - afebrile, WBC @ 6.9 on most recent labs X-rays of the right foot- Void in the soft tissue with radiolucency at the site of the wound but no presence of soft tissue emphysema. Periosteal giovanna reaction noted at the styloid process of the 5th metatarsal possibly indicating acute OM Dilaudid 1mg IV q4hrs DM Glimeperide 4mg PO daily Lisinopril 5mg PO daily Metformin 500mg PO BID ISS ASA 81mg PO daily Follow up A1C Prophylaxis Pepcid 20mg PO daily Heparin held for OR- restart as per podiatry Case discussed with Dr. Tello All management as per Dr. Tello <Rashida Tello S - Last Filed: 05/04/17 07:06> Objective - Vital Signs/Intake and Output Vital Signs (last 24 hours): Temp Pulse Resp BP Pulse Ox 98 F 80 20 123/67 96 05/04/17 00:00 05/04/17 00:00 05/04/17 00:00 05/04/17 00:00 05/04/17 00:00 Intake and Output: 05/04/17 05/04/17 06:59 18:59 Intake Total 450 Output Total 1200 Balance -750 - Medications Medications: Current Medications Aspirin (Ecotrin) 81 mg PO DAILY [facility] Last Admin: 05/03/17 10:42 Dose: 81 mg Bacitracin (Bacitracin) 0 gm TOP DAILY [facility] Last Admin: 05/03/17 10:43 Dose: 1 applic Ciprofloxacin (Cipro) 500 mg PO Q12H [facility] Last Admin: 05/03/17 21:21 Dose: 500 mg Famotidine (Pepcid) 20 mg PO DAILY [facility] Last Admin: 05/03/17 10:42 Dose: 20 mg Glimepiride (Amaryl) 4 mg PO DAILY [facility] Last Admin: 05/03/17 10:42 Dose: 4 mg Hydromorphone HCl (Dilaudid) 1 mg IVP Q4H PRN PRN Reason: pain Last Admin: 05/04/17 04:09 Dose: 1 mg Insulin Human Regular (Novolin R) 0 unit SC ACHS [facility] PRN Reason: Protocol Last Admin: 03/22/18 21:38 Dose: Not Given Lisinopril (Zestril) 5 mg PO DAILY [facility] Last Admin: 05/03/17 10:42 Dose: 5 mg [facility] ([facility]) [facility] Last Admin: 05/03/17 17:19 Dose: 500 mg Mupirocin (Bactroban Ointment) 1 gm TOP BID [facility] Last Admin: 05/03/17 17:19 Dose: 1 applic Silver Sulfadiazine (Silvadene 1% 20 Gm) 0 ea TOP DAILY [facility] Last Admin: 05/03/17 10:43 Dose: 1 applic - Labs Labs: 05/04/17 06:29 05/03/17 06:57 PT 11.2 SECONDS (9.7-12.2) 04/24/17 14:38 INR 1.0 04/24/17 14:38 APTT 32 SECONDS (21-34) 04/24/17 14:38 Assessment and Plan (1) Cellulitis Status: Acute (2) Hyperglycemia Status: Acute (3) Non-healing ulcer of foot Status: Acute (4) Osteomyelitis Status: Acute (5) Ankle fracture, right Status: Acute (6) Ankle pain Status: Acute (7) Hyperglycemia without ketosis Status: Acute (8) Leg pain, bilateral Status: Acute (9) Ulcer Status: Acute Attending/Attestation - Attestation I have personally seen and examined this patient.: Yes I have fully participated in the care of the patient.: Yes I have reviewed all pertinent clinical information, including history, physical exam and plan: Yes Notes (Text): 05/04/17 07:05 case seen and d.w staff and resident, concurred with finding and management..
[2017-05-02] MEDS: (Novolin R) Insulin Human Regular 100 units/ml vial SC SCH ×4 (08:24→22:52)
[2017-05-02 08:33] LABS: BASO # 0.1 K/uL (0.0-0.2); BASO % 0.9 % (0.0-2.0); EOS # 0.1 K/uL (0.0-0.7); EOS % 1.4 % (0.0-4.0); HEMOGLOBIN 13.3 g/dL (12.0-18.0); LYMPH # 2.3 K/uL (1.0-4.3); LYMPH % 22.3 % (20.0-40.0); MEAN CELL VOLUME 91.5 fL (80.0-94.0); MEAN CORPUSCULAR HEMOGLOBIN 31.3 pg (27.0-31.0); MEAN CORPUSCULAR HGB CONC 34.1 g/dL (33.0-37.0); MEAN PLATELET VOLUME 8.8 fL (7.2-11.7); MONO # 0.9 K/uL (0.0-0.8); MONO % 8.8 % (0.0-10.0); NEUT # 6.9 K/uL (1.8-7.0); NEUT % 66.6 % (50.0-75.0); RBC 4.26 Mil/uL (4.40-5.90); RED CELL DISTRIBUTION WIDTH 13.4 % (11.5-14.5); WHITE BLOOD COUNT 10.3 K/uL (4.8-10.8)
[2017-05-02 08:49] LABS: ALB/GLOB RATIO 1.1 (1.0-2.1); ALBUMIN 3.9 g/dL (3.5-5.0); ALT/SGPT 32 U/L (21-72); AST/SGOT 27 U/L (17-59); BLOOD UREA NITROGEN 29 mg/dL (9-20); CALCIUM 9.2 mg/dl (8.6-10.4); GFR AFRICAN-AMERICAN > 60; GFR NON-AFRICAN AMERICAN > 60
[2017-05-02] MEDS: Bacitracin Ointment 30 GM TUBE TOP SCH (09:40)
[2017-05-02] MEDS ORDERED: Silver Sulfadiazine 1% Cream (20 gm) TOP SCH (10:00)
--- NOTE | 2017-05-02 10:02 | CP.PCM.PN ---
Subjective - Date & Time of Evaluation Date of Evaluation: 05/02/17 Time of Evaluation: 09:59 - Subjective Subjective: Podiatry progress Note: Dr. Josue 76 year old male patient was seen at bedside this morning 1 day s/p wound debridement of right foot lateral decubitus ulceration. Patient states that his pain is well controlled and denies any new onset pain. Denies any acute overnight events. Is AAO x 3 and NAD during examination. Denies any further pedal complaints at this time. Denies any recent N/V/F/C/CP/SOB/D/posterior calf pain when squeezed Objective - Vital Signs/Intake and Output Vital Signs (last 24 hours): Temp Pulse Resp BP Pulse Ox 98.6 F 74 20 160/78 H 95 05/02/17 08:10 05/02/17 08:10 05/02/17 08:10 05/02/17 08:10 05/02/17 08:10 Intake and Output: 05/02/17 05/02/17 06:59 18:59 Intake Total 700 180 Balance 700 180 - Medications Medications: Current Medications Aspirin (Ecotrin) 81 mg PO DAILY [facility] Last Admin: 05/02/17 09:39 Dose: 81 mg Bacitracin (Bacitracin) 0 gm TOP DAILY [facility] Last Admin: 05/02/17 09:40 Dose: 1 applic Ciprofloxacin (Cipro) 500 mg PO Q12H [facility] Last Admin: 05/02/17 09:39 Dose: 500 mg Famotidine (Pepcid) 20 mg PO DAILY [facility] Last Admin: 05/02/17 09:39 Dose: 20 mg Glimepiride (Amaryl) 4 mg PO DAILY [facility] Last Admin: 05/02/17 09:39 Dose: 4 mg Hydromorphone HCl (Dilaudid) 1 mg IVP Q4H PRN PRN Reason: pain Last Admin: 05/02/17 06:06 Dose: 1 mg Insulin Human Regular (Novolin R) 0 unit SC ACHS [facility] PRN Reason: Protocol Last Admin: 05/02/17 08:24 Dose: 2 unit Lisinopril (Zestril) 5 mg PO DAILY [facility] Last Admin: 05/02/17 09:39 Dose: 5 mg Metformin HCl (Glucophage Xr) 500 mg PO BIDCC [facility] Last Admin: 05/02/17 08:24 Dose: 500 mg Mupirocin (Bactroban Ointment) 1 gm TOP BID [facility] Last Admin: 05/02/17 09:40 Dose: 1 applic Silver Sulfadiazine (Silvadene 1% 20 Gm) 0 ea TOP DAILY [facility] Silver Sulfadiazine (Silvadene 1% 20 Gm) 0 ea TOP DAILY [facility] - Labs Labs: 05/02/17 08:25 05/02/17 08:25 PT 11.2 SECONDS (9.7-12.2) 04/24/17 14:38 INR 1.0 04/24/17 14:38 APTT 32 SECONDS (21-34) 04/24/17 14:38 - Constitutional Appears: Well, Non-toxic, No Acute Distress - Extremities Exam Additional comments: RLE focused exam: DERM: Unstageable decubitus ulceration measuring 2.5 x 1.5cm x 0.3 cm to the lateral aspect of Right foot at the level of 5th metatarsal base with no active purulent drainage, wound base appears fibrous, no serous drainage upon pressing the wound edges, no maceration, no tunneling, no malodor, exposed tendon and bone noted VASC: DP/PT pulses are palpable 1/4 . Cap refill time: < 3 seconds to all digits. Skin temperature warm to warm from proximal to distal. mild non-pitting edema noted on on the foot extending to the ankle with accompanied erythema NEURO: Epicritic and protective sensation grossly intact ORTHO: mild tenderness on palpation of the ulcerated site, Alva's negative, no pain on palpation of the calf, MMT: 5/5 in all 4 directions at the ankle joint - Neurological Exam Neurological Exam: Alert, Awake, Oriented x3 - Psychiatric Exam Psychiatric exam: Normal Affect, Normal Mood Assessment and Plan - Assessment and Plan (Free Text) Assessment: 76 year old male patient seen at bedside 1 day s/p wound debridement of right foot decubitus ulceration Plan: Patient seen and evaluated at bedside with attending Dr. Josue Chart reviewed Labs, vitals and charts reviewed - afebrile, WBC 10.3 X-rays of the right foot - No abscess, possible OM CTA Right - Moderate stenosis of common femoral, SFA, Popliteal arteries. Severe stenosis of anterior tibial, posterior tibial, peroneal arteries 4 day s/p Aortofemoral angiogram. Selective catherization of right femoral artery. Atherectomy (CSI 2.0) of common femoral with 6 mm balloon angioplasty. balloon angioplasty 3mm to tibio peroneal trunk by Dr Ordonez WCX: (05/01) pending WBC bone scan complete - evidence of cellulitis, no evidence of acute OM to right foot or ankle Wound cleaned using saline and dressing applied using silvadene, xeroform, DSD cont. Ciprofloxacin as per ID stressed to patient importance of glucose control for wound healing Podiatry will continue to follow patient while in house
[2017-05-02] MEDS: Silver Sulfadiazine 1% Cream (20 gm) TOP SCH (10:31)
--- NOTE | 2017-05-02 17:41 | CP.PCM.PN ---
Subjective - Date & Time of Evaluation Date of Evaluation: 05/02/17 Time of Evaluation: 07:40 - Subjective Subjective: clinically same Objective - Vital Signs/Intake and Output Vital Signs (last 24 hours): Temp Pulse Resp BP Pulse Ox 98.0 F 67 20 130/72 97 05/02/17 15:04 05/02/17 15:04 05/02/17 15:04 05/02/17 15:04 05/02/17 15:04 Intake and Output: 05/02/17 05/02/17 06:59 18:59 Intake Total 700 680 Balance 700 680 - Medications Medications: Current Medications Aspirin (Ecotrin) 81 mg PO DAILY [facility] Last Admin: 05/02/17 09:39 Dose: 81 mg Bacitracin (Bacitracin) 0 gm TOP DAILY [facility] Last Admin: 05/02/17 09:40 Dose: 1 applic Ciprofloxacin (Cipro) 500 mg PO Q12H [facility] Last Admin: 05/02/17 09:39 Dose: 500 mg Famotidine (Pepcid) 20 mg PO DAILY [facility] Last Admin: 05/02/17 09:39 Dose: 20 mg Glimepiride (Amaryl) 4 mg PO DAILY [facility] Last Admin: 05/02/17 09:39 Dose: 4 mg Hydromorphone HCl (Dilaudid) 1 mg IVP Q4H PRN PRN Reason: pain Last Admin: 05/02/17 14:38 Dose: 1 mg Insulin Human Regular (Novolin R) 0 unit SC ACHS [facility] PRN Reason: Protocol Last Admin: 05/02/17 17:28 Dose: 2 unit Lisinopril (Zestril) 5 mg PO DAILY [facility] Last Admin: 05/02/17 09:39 Dose: 5 mg Metformin HCl (Glucophage Xr) 500 mg PO BIDCC [facility] Last Admin: 05/02/17 17:26 Dose: 500 mg Mupirocin (Bactroban Ointment) 1 gm TOP BID [facility] Last Admin: 05/02/17 09:40 Dose: 1 applic Silver Sulfadiazine (Silvadene 1% 20 Gm) 0 ea TOP DAILY [facility] Last Admin: 05/02/17 10:31 Dose: 1 applic - Labs Labs: 05/02/17 08:25 05/02/17 08:25 PT 11.2 SECONDS (9.7-12.2) 04/24/17 14:38 INR 1.0 04/24/17 14:38 APTT 32 SECONDS (21-34) 04/24/17 14:38 - Constitutional Appears: Well - Head Exam Head Exam: ATRAUMATIC, NORMAL INSPECTION, NORMOCEPHALIC - Eye Exam Eye Exam: EOMI, Normal appearance, PERRL Pupil Exam: NORMAL ACCOMODATION, PERRL - ENT Exam ENT Exam: Mucous Membranes Moist, Normal Exam - Neck Exam Neck Exam: Full ROM, Normal Inspection. absent: Lymphadenopathy - Respiratory Exam Respiratory Exam: Decreased Breath Sounds - Cardiovascular Exam Cardiovascular Exam: REGULAR RHYTHM, +S1, +S2 - GI/Abdominal Exam GI & Abdominal Exam: Soft, Diminished Bowel Sounds - Rectal Exam Rectal Exam: Deferred Assessment and Plan (1) Cellulitis Status: Acute (2) Hyperglycemia Status: Acute (3) Non-healing ulcer of foot Status: Acute (4) Osteomyelitis Status: Acute (5) Ankle fracture, right Status: Acute (6) Ankle pain Status: Acute (7) Hyperglycemia without ketosis Status: Acute (8) Leg pain, bilateral Status: Acute (9) Ulcer Status: Acute - Assessment and Plan (Free Text) Plan: RLE cellulitis Podiatry consult placed-Dr. Liat sandoval appreciated WCX: enterobacter cloacae Wound dressings- saline and dressing applied using Betadine, DSD, Bacitracin POD 1 s/p debridement of right foot tolerated procedure well Vascular consult placed-Dr. Mery sandoval appreciated Right CARA 0.86, Left CARA 0.77 with mild to moderate arterial insufficiency CTA- Moderate stenosis of common femoral, SFA, Popliteal arteries. Severe stenosis of anterior tibial, posterior tibial, peroneal arteries MRI switched to bonescan but patient refused Angiography (R)- mod stenosis of common femoral art, Mod stenosis @ origin of SFA. 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 severe tibial disease with small posterior tibial as major target vessel in foot. ID consult placed-Dr. Usman sandoval appreciated Cipro 500mg PO q12hrs as per ID infection has likely reached the bone as per ID patient will need close follow up and continued abx upon d/c Lower extremity duplex- negative for DVT Labs, vitals and charts reviewed - afebrile, WBC @ 6.9 on most recent labs X-rays of the right foot- Void in the soft tissue with radiolucency at the site of the wound but no presence of soft tissue emphysema. Periosteal giovanna reaction noted at the styloid process of the 5th metatarsal possibly indicating acute OM Dilaudid 1mg IV q4hrs Status post day 1 debridement IV antibiotic may need it for a 6 weeks but will check with id DM Glimeperide 4mg PO daily Lisinopril 5mg PO daily Metformin 500mg PO BID ISS ASA 81mg PO daily Follow up A1C Prophylaxis Pepcid 20mg PO daily Heparin held for OR- restart as per podiatry
[2017-05-03] MEDS: HYDROmorphone 1 mg/ml ISec IVP PRN ×3 (00:30→21:26)
[2017-05-03 07:14] LABS: BASO % 0.4 % (0.0-2.0); EOS # 0.1 K/uL (0.0-0.7); EOS % 1.6 % (0.0-4.0); HEMOGLOBIN 13.6 g/dL (12.0-18.0); LYMPH # 2.5 K/uL (1.0-4.3); LYMPH % 27.8 % (20.0-40.0); MEAN CELL VOLUME 91.1 fL (80.0-94.0); MEAN CORPUSCULAR HEMOGLOBIN 31.9 pg (27.0-31.0); MEAN PLATELET VOLUME 8.3 fL (7.2-11.7); MONO # 0.8 K/uL (0.0-0.8); MONO % 8.8 % (0.0-10.0); NEUT # 5.5 K/uL (1.8-7.0); NEUT % 61.4 % (50.0-75.0); NRBC % 0.1 % (0.0-2.0); RBC 4.27 Mil/uL (4.40-5.90); RED CELL DISTRIBUTION WIDTH 13.4 % (11.5-14.5); WHITE BLOOD COUNT 8.9 K/uL (4.8-10.8)
[2017-05-03 07:32] LABS: ALBUMIN 3.9 g/dL (3.5-5.0); ALT/SGPT 27 U/L (21-72); AST/SGOT 23 U/L (17-59); BLOOD UREA NITROGEN 26 mg/dL (9-20); GFR AFRICAN-AMERICAN > 60; GFR NON-AFRICAN AMERICAN > 60
[2017-05-03] MEDS: (Novolin R) Insulin Human Regular 100 units/ml vial SC SCH ×4 (08:16→21:38)
--- NOTE | 2017-05-03 10:42 | CP.PCM.PN ---
<Oliver Roy - Last Filed: 05/03/17 16:45> Subjective - Date & Time of Evaluation Date of Evaluation: 05/03/17 Time of Evaluation: 10:23 - Subjective Subjective: Progress Note for Dr. Tello's Service Pt seen and examined at bedside. Nursing reports no acute events overnight. He is POD 2 s/p debridement with vac application. Patient admits 3/10 pain in his lower extremity, that he states is controlled by his pain regimen. Denies fever , chills, chest pain, SOB, or dizziness. Objective - Vital Signs/Intake and Output Vital Signs (last 24 hours): Temp Pulse Resp BP Pulse Ox 97.5 F L 81 20 146/70 96 05/03/17 08:17 05/03/17 08:17 05/03/17 08:17 05/03/17 08:17 05/03/17 08:17 Intake and Output: 05/03/17 05/03/17 06:59 18:59 Intake Total 200 Output Total 400 Balance -200 - Medications Medications: Current Medications Aspirin (Ecotrin) 81 mg PO DAILY [facility] Last Admin: 05/02/17 09:39 Dose: 81 mg Bacitracin (Bacitracin) 0 gm TOP DAILY [facility] Last Admin: 05/02/17 09:40 Dose: 1 applic Ciprofloxacin (Cipro) 500 mg PO Q12H [facility] Last Admin: 05/02/17 21:15 Dose: 500 mg Famotidine (Pepcid) 20 mg PO DAILY [facility] Last Admin: 05/02/17 09:39 Dose: 20 mg Glimepiride (Amaryl) 4 mg PO DAILY [facility] Last Admin: 05/02/17 09:39 Dose: 4 mg Hydromorphone HCl (Dilaudid) 1 mg IVP Q4H PRN PRN Reason: pain Last Admin: 05/03/17 06:42 Dose: 1 mg Insulin Human Regular (Novolin R) 0 unit SC ACHS [facility] PRN Reason: Protocol Last Admin: 05/03/17 08:16 Dose: 2 unit Lisinopril (Zestril) 5 mg PO DAILY [facility] Last Admin: 05/02/17 09:39 Dose: 5 mg Metformin HCl (Glucophage Xr) 500 mg PO BIDCC [facility] Last Admin: 05/03/17 08:16 Dose: 500 mg Mupirocin (Bactroban Ointment) 1 gm TOP BID [facility] Last Admin: 05/02/17 18:48 Dose: Not Given Silver Sulfadiazine (Silvadene 1% 20 Gm) 0 ea TOP DAILY [facility] Last Admin: 05/02/17 10:31 Dose: 1 applic - Labs Labs: 05/03/17 06:57 05/03/17 06:57 PT 11.2 SECONDS (9.7-12.2) 04/24/17 14:38 INR 1.0 04/24/17 14:38 APTT 32 SECONDS (21-34) 04/24/17 14:38 - Additional Findings Additional findings: - Constitutional Appears: No Acute Distress - Head Exam Head Exam: ATRAUMATIC, NORMOCEPHALIC - Eye Exam Eye Exam: EOMI - ENT Exam ENT Exam: Mucous Membranes Moist - Respiratory Exam Respiratory Exam: Clear to Ausculation Bilateral, NORMAL BREATHING PATTERN. absent: Rales, Rhonchi, Wheezes - Cardiovascular Exam Cardiovascular Exam: REGULAR RHYTHM - GI/Abdominal Exam GI & Abdominal Exam: Soft. absent: Distended, Tenderness - Extremities Exam Additional comments: dressing c/d/i - Neurological Exam Neurological Exam: Alert, Awake, Oriented x3 - Psychiatric Exam Psychiatric exam: Normal Affect, Normal Mood - Skin Skin Exam: Dry, Warm Assessment and Plan - Assessment and Plan (Free Text) Plan: RLE cellulitis Podiatry consult placed-Dr. Liat sandoval appreciated WCX: enterobacter cloacae Wound dressings- saline and dressing applied using Betadine, DSD, Bacitracin POD 2 s/p debridement of right foot tolerated procedure well Vascular consult placed-Dr. Mery sandoval appreciated Right CARA 0.86, Left CARA 0.77 with mild to moderate arterial insufficiency CTA- Moderate stenosis of common femoral, SFA, Popliteal arteries. Severe stenosis of anterior tibial, posterior tibial, peroneal arteries MRI switched to bonescan but patient refused Angiography (R)- mod stenosis of common femoral art, Mod stenosis @ origin of SFA. 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 severe tibial disease with small posterior tibial as major target vessel in foot. ID consult placed-Dr. Usman sandoval appreciated Cipro 500mg PO q12hrs (04/29/17, Day 5) as per ID infection has likely reached the bone as per ID patient will need close follow up and continued abx upon d/c Lower extremity duplex- negative for DVT Labs, vitals and charts reviewed - afebrile, WBC @ 8.9 on most recent labs X-rays of the right foot- Void in the soft tissue with radiolucency at the site of the wound but no presence of soft tissue emphysema. Periosteal giovanna reaction noted at the styloid process of the 5th metatarsal possibly indicating acute OM Dilaudid 1mg IV q4hrs DM A1C: 10.5 Glimeperide 4mg PO daily Lisinopril 5mg PO daily Metformin 500mg PO BID [facility] ASA 81mg PO daily Prophylaxis Pepcid 20mg PO daily Heparin held for OR- restart as per podiatry Case discussed with Dr. Tello All management as per Dr. Tello <Rashida Tello S - Last Filed: 05/04/17 07:04> Objective - Vital Signs/Intake and Output Vital Signs (last 24 hours): Temp Pulse Resp BP Pulse Ox 98 F 80 20 123/67 96 05/04/17 00:00 05/04/17 00:00 05/04/17 00:00 05/04/17 00:00 05/04/17 00:00 Intake and Output: 05/04/17 05/04/17 06:59 18:59 Intake Total 450 Output Total 1200 Balance -750 - Medications Medications: Current Medications Aspirin (Ecotrin) 81 mg PO DAILY [facility] Last Admin: 05/03/17 10:42 Dose: 81 mg Bacitracin (Bacitracin) 0 gm TOP DAILY [facility] Last Admin: 05/03/17 10:43 Dose: 1 applic Ciprofloxacin (Cipro) 500 mg PO Q12H [facility] Last Admin: 05/03/17 21:21 Dose: 500 mg Famotidine (Pepcid) 20 mg PO DAILY [facility] Last Admin: 05/03/17 10:42 Dose: 20 mg Glimepiride (Amaryl) 4 mg PO DAILY [facility] Last Admin: 05/03/17 10:42 Dose: 4 mg Hydromorphone HCl (Dilaudid) 1 mg IVP Q4H PRN PRN Reason: pain Last Admin: 05/04/17 04:09 Dose: 1 mg Insulin Human Regular (Novolin R) 0 unit SC [facility] PRN Reason: Protocol Last Admin: 05/03/17 21:38 Dose: Not Given Lisinopril (Zestril) 5 mg PO DAILY [facility] Last Admin: 05/03/17 10:42 Dose: 5 mg [facility] Last Admin: 05/03/17 17:19 Dose: 500 mg Mupirocin (Bactroban Ointment) 1 gm TOP BID [facility] Last Admin: 05/03/17 17:19 Dose: 1 applic Silver Sulfadiazine (Silvadene 1% 20 Gm) 0 ea TOP DAILY [facility] Last Admin: 05/03/17 10:43 Dose: 1 applic - Labs Labs: 05/04/17 06:29 05/03/17 06:57 PT 11.2 SECONDS (9.7-12.2) 04/24/17 14:38 INR 1.0 04/24/17 14:38 APTT 32 SECONDS (21-34) 04/24/17 14:38 Assessment and Plan (1) Cellulitis Status: Acute (2) Hyperglycemia Status: Acute (3) Non-healing ulcer of foot Status: Acute (4) Osteomyelitis Status: Acute (5) Ankle fracture, right Status: Acute (6) Ankle pain Status: Acute (7) Hyperglycemia without ketosis Status: Acute (8) Leg pain, bilateral Status: Acute (9) Ulcer Status: Acute Attending/Attestation - Attestation I have personally seen and examined this patient.: Yes I have fully participated in the care of the patient.: Yes I have reviewed all pertinent clinical information, including history, physical exam and plan: Yes Notes (Text): 05/04/17 07:04 case seen and d.w staff and resident, concurred with finding and management..
[2017-05-03] MEDS: Silver Sulfadiazine 1% Cream (20 gm) TOP SCH (10:43)
[2017-05-03] MEDS: Bacitracin Ointment 30 GM TUBE TOP SCH (10:43)
--- NOTE | 2017-05-03 12:59 | CP.PCM.PN ---
Subjective - Date & Time of Evaluation Date of Evaluation: 05/03/17 Time of Evaluation: 07:40 - Subjective Subjective: clinically same Objective - Vital Signs/Intake and Output Vital Signs (last 24 hours): Temp Pulse Resp BP Pulse Ox 97.5 F L 81 20 146/70 96 05/03/17 08:17 05/03/17 08:17 05/03/17 08:17 05/03/17 08:17 05/03/17 08:17 Intake and Output: 05/03/17 05/03/17 06:59 18:59 Intake Total 200 Output Total 400 Balance -200 - Medications Medications: Current Medications Aspirin (Ecotrin) 81 mg PO DAILY [facility] Last Admin: 05/03/17 10:42 Dose: 81 mg Bacitracin (Bacitracin) 0 gm TOP DAILY [facility] Last Admin: 05/03/17 10:43 Dose: 1 applic Ciprofloxacin (Cipro) 500 mg PO Q12H [facility] Last Admin: 05/03/17 09:42 Dose: 500 mg Famotidine (Pepcid) 20 mg PO DAILY [facility] Last Admin: 05/03/17 10:42 Dose: 20 mg Glimepiride (Amaryl) 4 mg PO DAILY [facility] Last Admin: 05/03/17 10:42 Dose: 4 mg Hydromorphone HCl (Dilaudid) 1 mg IVP Q4H PRN PRN Reason: pain Last Admin: 05/03/17 06:42 Dose: 1 mg Insulin Human Regular (Novolin R) 0 unit SC ACHS [facility] PRN Reason: Protocol Last Admin: 05/03/17 08:16 Dose: 2 unit Lisinopril (Zestril) 5 mg PO DAILY [facility] Last Admin: 05/03/17 10:42 Dose: 5 mg Metformin HCl (Glucophage Xr) 500 mg PO BIDCC [facility] Last Admin: 05/03/17 08:16 Dose: 500 mg Mupirocin (Bactroban Ointment) 1 gm TOP BID [facility] Last Admin: 05/03/17 10:43 Dose: 1 applic Silver Sulfadiazine (Silvadene 1% 20 Gm) 0 ea TOP DAILY [facility] Last Admin: 05/03/17 10:43 Dose: 1 applic - Labs Labs: 05/03/17 06:57 05/03/17 06:57 PT 11.2 SECONDS (9.7-12.2) 04/24/17 14:38 INR 1.0 04/24/17 14:38 APTT 32 SECONDS (21-34) 04/24/17 14:38 - Constitutional Appears: Well - Head Exam Head Exam: ATRAUMATIC, NORMAL INSPECTION, NORMOCEPHALIC - Eye Exam Eye Exam: EOMI, Normal appearance, PERRL Pupil Exam: NORMAL ACCOMODATION, PERRL - ENT Exam ENT Exam: Mucous Membranes Moist, Normal Exam - Neck Exam Neck Exam: Full ROM, Normal Inspection. absent: Lymphadenopathy - Respiratory Exam Respiratory Exam: Decreased Breath Sounds - Cardiovascular Exam Cardiovascular Exam: REGULAR RHYTHM, +S1, +S2 - GI/Abdominal Exam GI & Abdominal Exam: Soft, Diminished Bowel Sounds - Rectal Exam Rectal Exam: Deferred Assessment and Plan (1) Cellulitis Status: Acute (2) Hyperglycemia Status: Acute (3) Non-healing ulcer of foot Status: Acute (4) Osteomyelitis Status: Acute (5) Ankle fracture, right Status: Acute (6) Ankle pain Status: Acute (7) Hyperglycemia without ketosis Status: Acute (8) Leg pain, bilateral Status: Acute (9) Ulcer Status: Acute - Assessment and Plan (Free Text) Plan: RLE cellulitis Podiatry consult placed-Dr. Liat sandoval appreciated WCX: enterobacter cloacae Wound dressings- saline and dressing applied using Betadine, DSD, Bacitracin POD 2 s/p debridement of right foot tolerated procedure well Vascular consult placed-Dr. Mery sandoval appreciated Right CARA 0.86, Left CARA 0.77 with mild to moderate arterial insufficiency CTA- Moderate stenosis of common femoral, SFA, Popliteal arteries. Severe stenosis of anterior tibial, posterior tibial, peroneal arteries MRI switched to bonescan but patient refused Angiography (R)- mod stenosis of common femoral art, Mod stenosis @ origin of SFA. 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 severe tibial disease with small posterior tibial as major target vessel in foot. ID consult placed-Dr. Usman sandoval appreciated Cipro 500mg PO q12hrs (04/29/17, Day 5) as per ID infection has likely reached the bone as per ID patient will need close follow up and continued abx upon d/c Lower extremity duplex- negative for DVT Labs, vitals and charts reviewed - afebrile, WBC @ 8.9 on most recent labs X-rays of the right foot- Void in the soft tissue with radiolucency at the site of the wound but no presence of soft tissue emphysema. Periosteal giovanna reaction noted at the styloid process of the 5th metatarsal possibly indicating acute OM Dilaudid 1mg IV q4hrs DM A1C: 10.5 Glimeperide 4mg PO daily Lisinopril 5mg PO daily Metformin 500mg PO BID ISS ASA 81mg PO daily Prophylaxis Pepcid 20mg PO daily Heparin held for OR- restart as per podiatry
--- NOTE | 2017-05-03 16:42 | CP.PCM.PN ---
Subjective - Date & Time of Evaluation Date of Evaluation: 05/03/17 Time of Evaluation: 11:00 - Subjective Subjective: Podiatry Progress Note - Dr. Josue 76 year old male patient seen and evaluated at bedside POD2 right foot lateral decubitus wound debridement. present at bedside. No acute events overnight. Patient reports continued pain to wound site, well-controlled. Dressing to right foot appears clean, dry, intact. Offers no other pedal complaints this visit. Denies N/V/F/D/C/SOB/PICKENS/dizziness. Objective - Vital Signs/Intake and Output Vital Signs (last 24 hours): Temp Pulse Resp BP Pulse Ox 97.5 F L 81 20 146/70 96 05/03/17 08:17 05/03/17 08:17 05/03/17 08:17 05/03/17 08:17 05/03/17 08:17 Intake and Output: 05/03/17 05/03/17 06:59 18:59 Intake Total 200 400 Output Total 400 Balance -200 400 - Medications Medications: Current Medications Aspirin (Ecotrin) 81 mg PO DAILY [facility] Last Admin: 05/03/17 10:42 Dose: 81 mg Bacitracin (Bacitracin) 0 gm TOP DAILY [facility] Last Admin: 05/03/17 10:43 Dose: 1 applic Ciprofloxacin (Cipro) 500 mg PO Q12H [facility] Last Admin: 05/03/17 09:42 Dose: 500 mg Famotidine (Pepcid) 20 mg PO DAILY [facility] Last Admin: 05/03/17 10:42 Dose: 20 mg Glimepiride (Amaryl) 4 mg PO DAILY [facility] Last Admin: 05/03/17 10:42 Dose: 4 mg Hydromorphone HCl (Dilaudid) 1 mg IVP Q4H PRN PRN Reason: pain Last Admin: 05/03/17 06:42 Dose: 1 mg Insulin Human Regular (Novolin R) 0 unit SC ACHS [facility] PRN Reason: Protocol Last Admin: 05/03/17 12:13 Dose: 4 unit Lisinopril (Zestril) 5 mg PO DAILY [facility] Last Admin: 05/03/17 10:42 Dose: 5 mg Metformin HCl (Glucophage Xr) 500 mg PO BIDCC [facility] Last Admin: 05/03/17 08:16 Dose: 500 mg Mupirocin (Bactroban Ointment) 1 gm TOP BID [facility] Last Admin: 05/03/17 10:43 Dose: 1 applic Silver Sulfadiazine (Silvadene 1% 20 Gm) 0 ea TOP DAILY [facility] Last Admin: 05/03/17 10:43 Dose: 1 applic - Labs Labs: 05/03/17 06:57 05/03/17 06:57 PT 11.2 SECONDS (9.7-12.2) 04/24/17 14:38 INR 1.0 04/24/17 14:38 APTT 32 SECONDS (21-34) 04/24/17 14:38 - Constitutional Appears: Well, Non-toxic, No Acute Distress - Extremities Exam Additional comments: RLE focused exam: DERM: full thickness decubitus ulceration measuring 2.5 x 1.5cm x 0.3 cm at the level of 5th metatarsal base with no active purulent drainage, fibrin/slough n oted at wound base, no serous drainage upon pressing the wound edges, no maceration, no tunneling, no malodor, exposed tendon and bone noted VASC: DP/PT pulses are palpable 1/4 . Cap refill time: < 3 seconds to all digits. Skin temperature warm to warm from proximal to distal. mild non-pitting edema noted on on the foot extending to the ankle with accompanied erythema NEURO: Epicritic and protective sensation grossly intact ORTHO: Pain on palpation of the ulcerated site, Alva's negative, no pain on palpation of the calf, MMT: 5/5 in all 4 directions at the ankle joint - Neurological Exam Neurological Exam: Alert, Awake, Oriented x3 - Psychiatric Exam Psychiatric exam: Normal Affect, Normal Mood Assessment and Plan - Assessment and Plan (Free Text) Assessment: 76 year old male patient seen at bedside 2 days s/p wound debridement of right foot decubitus ulceration (DOS 05/03/17) Plan: Patient seen and evaluated with attending Dr. Josue Afebrile, WBC 8.9, A1c 10.5 X-rays of the right foot - No abscess, possible OM WBC bone scan - evidence of cellulitis, no evidence of acute OM to right foot or ankle CTA Right - Moderate stenosis of common femoral, SFA, Popliteal arteries. Severe stenosis of anterior tibial, posterior tibial, peroneal arteries s/p angio with Dr. Ordonez (04/25/17) - selective catherization of right femoral artery, atherectomy common femoral, balloon angioplasty tibio peroneal trunk. WCX: (05/01) enterobacter cloacae A1c 10.5% - stressed to patient importance of glucose control for wound healing Wound cleaned using saline and dressing applied using silvadene, DSD - consider future graft placement Continue abx per ID - Cipro 500mg PO Podiatry will continue to follow patient while in house
--- NOTE | 2017-05-03 18:32 | CP.PCM.PN ---
Subjective - Date & Time of Evaluation Date of Evaluation: 05/03/17 Time of Evaluation: 09:00 - Subjective Subjective: iv rx in progress Objective - Vital Signs/Intake and Output Vital Signs (last 24 hours): Temp Pulse Resp BP Pulse Ox 97.5 F L 81 20 146/70 96 05/03/17 08:17 05/03/17 08:17 05/03/17 08:17 05/03/17 08:17 05/03/17 08:17 Intake and Output: 05/03/17 05/03/17 06:59 18:59 Intake Total 200 400 Output Total 400 Balance -200 400 - Medications Medications: Current Medications Aspirin (Ecotrin) 81 mg PO DAILY [facility] Last Admin: 05/03/17 10:42 Dose: 81 mg Bacitracin (Bacitracin) 0 gm TOP DAILY [facility] Last Admin: 05/03/17 10:43 Dose: 1 applic Ciprofloxacin (Cipro) 500 mg PO Q12H [facility] Last Admin: 05/03/17 09:42 Dose: 500 mg Famotidine (Pepcid) 20 mg PO DAILY [facility] Last Admin: 05/03/17 10:42 Dose: 20 mg Glimepiride (Amaryl) 4 mg PO DAILY [facility] Last Admin: 05/03/17 10:42 Dose: 4 mg Hydromorphone HCl (Dilaudid) 1 mg IVP Q4H PRN PRN Reason: pain Last Admin: 05/03/17 06:42 Dose: 1 mg Insulin Human Regular (Novolin R) 0 unit SC ACHS [facility] PRN Reason: Protocol Last Admin: 05/03/17 17:15 Dose: 3 unit Lisinopril (Zestril) 5 mg PO DAILY [facility] Last Admin: 05/03/17 10:42 Dose: 5 mg Metformin HCl (Glucophage Xr) 500 mg PO BIDCC [facility] Last Admin: 05/03/17 17:19 Dose: 500 mg Mupirocin (Bactroban Ointment) 1 gm TOP BID [facility] Last Admin: 05/03/17 17:19 Dose: 1 applic Silver Sulfadiazine (Silvadene 1% 20 Gm) 0 ea TOP DAILY [facility] Last Admin: 05/03/17 10:43 Dose: 1 applic - Labs Labs: 05/03/17 06:57 05/03/17 06:57 PT 11.2 SECONDS (9.7-12.2) 04/24/17 14:38 INR 1.0 04/24/17 14:38 APTT 32 SECONDS (21-34) 04/24/17 14:38 - Constitutional Appears: Non-toxic, Chronically Ill - Head Exam Head Exam: NORMOCEPHALIC - Eye Exam Eye Exam: PERRL - ENT Exam ENT Exam: Mucous Membranes Dry - Cardiovascular Exam Cardiovascular Exam: REGULAR RHYTHM - GI/Abdominal Exam GI & Abdominal Exam: Distended - Rectal Exam Rectal Exam: Deferred - Exam Exam: NORMAL INSPECTION Assessment and Plan (1) Cellulitis Status: Acute (2) Hyperglycemia Status: Acute (3) Non-healing ulcer of foot Status: Acute (4) Hyperglycemia without ketosis Status: Acute (5) Leg pain, bilateral Status: Acute (6) Ulcer Status: Acute (7) Osteomyelitis Status: Acute
[2017-05-04] MEDS: HYDROmorphone 1 mg/ml ISec IVP PRN ×5 (04:09→23:46)
[2017-05-04 06:43] LABS: BASO # 0.1 K/uL (0.0-0.2); BASO % 0.8 % (0.0-2.0); EOS # 0.1 K/uL (0.0-0.7); EOS % 1.3 % (0.0-4.0); HEMOGLOBIN 12.7 g/dL (12.0-18.0); LYMPH # 2.3 K/uL (1.0-4.3); LYMPH % 25.9 % (20.0-40.0); MEAN CELL VOLUME 90.5 fL (80.0-94.0); MEAN CORPUSCULAR HEMOGLOBIN 31.4 pg (27.0-31.0); MEAN CORPUSCULAR HGB CONC 34.7 g/dL (33.0-37.0); MEAN PLATELET VOLUME 8.2 fL (7.2-11.7); MONO # 0.7 K/uL (0.0-0.8); MONO % 8.5 % (0.0-10.0); NEUT # 5.5 K/uL (1.8-7.0); NEUT % 63.5 % (50.0-75.0); RBC 4.04 Mil/uL (4.40-5.90); RED CELL DISTRIBUTION WIDTH 13.3 % (11.5-14.5); WHITE BLOOD COUNT 8.7 K/uL (4.8-10.8)
--- NOTE | 2017-05-04 07:01 | CP.PCM.PN ---
<Oliver Roy - Last Filed: 05/04/17 15:49> Subjective - Date & Time of Evaluation Date of Evaluation: 05/04/17 Time of Evaluation: 07:00 - Subjective Subjective: Progress Note for Dr. Tello's Service Pt seen and examined at bedside. Nursing reports no acute events overnight. He is POD 3 s/p debridement. Patient states pain in his foot is "strong, constant pain in the bone," yet says pain regimen has him well controlled. Nursing reports patient has been sent for MRI multiple times. He is telling this resident and podiatry team he is amenable to MRI and has been given dilaudid dose prior to MRI, yet according to MRI technologists he is refusing due to pain. Patient scheduled for surgery on 05/07/17, for debridement of wound. Denies fever, chills, chest pain, SOB, or abdominal pain,. Objective - Vital Signs/Intake and Output Vital Signs (last 24 hours): Temp Pulse Resp BP Pulse Ox 98 F 80 20 123/67 96 05/04/17 00:00 05/04/17 00:00 05/04/17 00:00 05/04/17 00:00 05/04/17 00:00 Intake and Output: 05/04/17 05/04/17 06:59 18:59 Intake Total 450 Output Total 1200 Balance -750 - Medications Medications: Current Medications Aspirin (Ecotrin) 81 mg PO DAILY [facility] Last Admin: 05/03/17 10:42 Dose: 81 mg Bacitracin (Bacitracin) 0 gm TOP DAILY [facility] Last Admin: 05/03/17 10:43 Dose: 1 applic Ciprofloxacin (Cipro) 500 mg PO Q12H [facility] Last Admin: 05/03/17 21:21 Dose: 500 mg Famotidine (Pepcid) 20 mg PO DAILY [facility] Last Admin: 05/03/17 10:42 Dose: 20 mg Glimepiride (Amaryl) 4 mg PO DAILY [facility] Last Admin: 05/03/17 10:42 Dose: 4 mg Hydromorphone HCl (Dilaudid) 1 mg IVP Q4H PRN PRN Reason: pain Last Admin: 05/04/17 04:09 Dose: 1 mg Insulin Human Regular (Novolin R) 0 unit SC ACHS [facility] PRN Reason: Protocol Last Admin: 05/03/17 21:38 Dose: Not Given Lisinopril (Zestril) 5 mg PO DAILY [facility] Last Admin: 05/03/17 10:42 Dose: 5 mg [facility] Last Admin: 05/03/17 17:19 Dose: 500 mg Mupirocin (Bactroban Ointment) 1 gm TOP BID [facility] Last Admin: 05/03/17 17:19 Dose: 1 applic Silver Sulfadiazine (Silvadene 1% 20 Gm) 0 ea TOP DAILY [facility] Last Admin: 05/03/17 10:43 Dose: 1 applic - Labs Labs: 05/04/17 06:29 05/03/17 06:57 PT 11.2 SECONDS (9.7-12.2) 04/24/17 14:38 INR 1.0 04/24/17 14:38 APTT 32 SECONDS (21-34) 04/24/17 14:38 - Additional Findings Additional findings: - Constitutional Appears: No Acute Distress - Head Exam Head Exam: ATRAUMATIC, NORMOCEPHALIC - Eye Exam Eye Exam: EOMI - ENT Exam ENT Exam: Mucous Membranes Moist - Respiratory Exam Respiratory Exam: Clear to Ausculation Bilateral, NORMAL BREATHING PATTERN. absent: Rales, Rhonchi, Wheezes - Cardiovascular Exam Cardiovascular Exam: REGULAR RHYTHM - GI/Abdominal Exam GI & Abdominal Exam: Soft. absent: Distended, Tenderness - Extremities Exam Additional comments: dressing c/d/i - Neurological Exam Neurological Exam: Alert, Awake, Oriented x3 - Psychiatric Exam Psychiatric exam: Normal Affect, Normal Mood - Skin Skin Exam: Dry, Warm Assessment and Plan - Assessment and Plan (Free Text) Plan: RLE cellulitis Podiatry consult placed-Dr. Liat sandoval appreciated Wound CX: enterobacter cloacae Wound dressings- saline and dressing applied using Betadine, DSD, Bacitracin POD 3 s/p debridement of right foot - scheduled for repeat debridement sunday05/07/17 Vascular consult placed-Dr. Mery sandoval appreciated Right CARA 0.86, Left CARA 0.77 with mild to moderate arterial insufficiency CTA- Moderate stenosis of common femoral, SFA, Popliteal arteries. Severe stenosis of anterior tibial, posterior tibial, peroneal arteries MRI switched to Mesurocan but patient refused Angiography (R)- mod stenosis of common femoral art, Mod stenosis @ origin of SFA. 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 severe tibial disease with small posterior tibial as major target vessel in foot. ID consult placed-Dr. Usman sandoval appreciated Cipro 500mg PO q12hrs (04/29/17, Day 6) as per ID patient will need close follow up and continued abx upon d/c Lower extremity duplex- negative for DVT Labs, vitals and charts reviewed - afebrile, WBC @ 8.9 on most recent labs X-rays of the right foot- Void in the soft tissue with radiolucency at the site of the wound but no presence of soft tissue emphysema. Periosteal giovanna reaction noted at the styloid process of the 5th metatarsal possibly indicating acute OM NM Bone Scan (04/28/17): findings c/w right ankle/foot cellulitis. Negative for OM. Dilaudid 1mg IV q4hrs PRN DM A1C: 10.5 Glimeperide 4mg PO daily Lisinopril 5mg PO daily Increased Metformin XR to 1000mg PO BID [facility] ASA 81mg PO daily Prophylaxis Pepcid 20mg PO daily Heparin 5000u Q8H SCDs C/I Case discussed with Dr. Tello All management as per Dr. Tello <Rashida Tello S - Last Filed: 05/09/17 08:09> Objective - Vital Signs/Intake and Output Vital Signs (last 24 hours): Temp Pulse Resp BP Pulse Ox 98.5 F 82 20 123/73 98 05/09/17 00:00 05/09/17 00:00 05/09/17 00:00 05/09/17 00:00 05/09/17 00:00 Intake and Output: 05/09/17 05/09/17 06:59 18:59 Intake Total 660 Output Total 1200 Balance -540 - Medications Medications: Current Medications Acetaminophen (Tylenol 325mg Tab) 650 mg PO Q6 PRN PRN Reason: Pain, Mild (1-3) Aspirin (Ecotrin) 81 mg PO DAILY [facility] Last Admin: 05/08/17 09:41 Dose: 81 mg Bacitracin (Bacitracin) 0 gm TOP DAILY [facility] Last Admin: 05/08/17 09:43 Dose: Not Given Ciprofloxacin (Cipro) 500 mg PO Q12H [facility] Last Admin: 05/08/17 20:51 Dose: 500 mg Famotidine (Pepcid) 20 mg PO DAILY [facility] Last Admin: 05/08/17 09:41 Dose: 20 mg Glimepiride (Amaryl) 4 mg PO DAILY [facility] Last Admin: 05/08/17 09:42 Dose: 4 mg Heparin Sodium (Porcine) (Heparin) 5,000 units SC Q8 [facility] Last Admin: 05/09/17 05:38 Dose: 5,000 units Hydromorphone HCl (Dilaudid) 1 mg IVP Q4H PRN PRN Reason: pain Last Admin: 05/08/17 20:52 Dose: 1 mg Insulin Human Regular (Novolin R) 0 unit SC ACHS [facility] PRN Reason: Protocol Last Admin: 05/09/17 07:58 Dose: Not Given Lisinopril (Zestril) 5 mg PO DAILY [facility] Last Admin: 05/08/17 09:42 Dose: 5 mg [facility] Last Admin: 05/08/17 16:28 Dose: 1,000 mg Oxycodone/Acetaminophen (Percocet 5/325 Mg Tab) 1 tab PO Q4H PRN PRN Reason: Pain, moderate (4-7) Stop: 05/10/17 09:28 Oxycodone/Acetaminophen (Percocet 5/325 Mg Tab) 2 tab PO Q4H PRN PRN Reason: Pain, severe (8-10) Stop: 05/10/17 09:28 Last Admin: 05/09/17 02:51 Dose: 2 tab Saccharomyces Boulardii (Florastor) 250 mg PO BID [facility] Last Admin: 05/08/17 17:27 Dose: 250 mg Silver Sulfadiazine (Silvadene 1% 20 Gm) 0 ea TOP DAILY [facility] Last Admin: 05/08/17 09:43 Dose: Not Given - Labs Labs: 05/08/17 07:40 05/08/17 07:40 PT 11.2 SECONDS (9.7-12.2) 04/24/17 14:38 INR 1.0 04/24/17 14:38 APTT 32 SECONDS (21-34) 04/24/17 14:38 Assessment and Plan (1) Cellulitis Status: Acute (2) Hyperglycemia Status: Acute (3) Non-healing ulcer of foot Status: Acute (4) Osteomyelitis Status: Acute (5) Ankle fracture, right Status: Acute (6) Ankle pain Status: Acute (7) Hyperglycemia without ketosis Status: Acute (8) Leg pain, bilateral Status: Acute (9) Ulcer Status: Acute Attending/Attestation - Attestation I have personally seen and examined this patient.: Yes I have fully participated in the care of the patient.: Yes I have reviewed all pertinent clinical information, including history, physical exam and plan: Yes Notes (Text): 05/09/17 08:09 case seen and d.w staff and resident, concurred with finding and management..
--- NOTE | 2017-05-04 07:04 | CP.PCM.PN ---
Subjective - Date & Time of Evaluation Date of Evaluation: 05/04/17 Time of Evaluation: 07:04 - Subjective Subjective: Podiatry Progress Note - Dr. Josue 76 year old male patient seen and evaluated at bedside POD3 right foot lateral decubitus wound debridement. No acute events overnight. Patient reports continued pain to wound site, controlled. Dressing to right foot appears clean, dry, intact. Patient continues to refuse MRI. Patient aware he is scheduled for surgery on Sunday, 7:30 for debridment of wound with graft application. Denies N /V/F/D/C/SOB/PICKENS/dizziness. Objective - Vital Signs/Intake and Output Vital Signs (last 24 hours): Temp Pulse Resp BP Pulse Ox 98 F 80 20 123/67 96 05/04/17 00:00 05/04/17 00:00 05/04/17 00:00 05/04/17 00:00 05/04/17 00:00 Intake and Output: 05/04/17 05/04/17 06:59 18:59 Intake Total 450 Output Total 1200 Balance -750 - Medications Medications: Current Medications Aspirin (Ecotrin) 81 mg PO DAILY [facility] Last Admin: 05/03/17 10:42 Dose: 81 mg Bacitracin (Bacitracin) 0 gm TOP DAILY [facility] Last Admin: 05/03/17 10:43 Dose: 1 applic Ciprofloxacin (Cipro) 500 mg PO Q12H [facility] Last Admin: 05/03/17 21:21 Dose: 500 mg Famotidine (Pepcid) 20 mg PO DAILY [facility] Last Admin: 05/03/17 10:42 Dose: 20 mg Glimepiride (Amaryl) 4 mg PO DAILY [facility] Last Admin: 05/03/17 10:42 Dose: 4 mg Hydromorphone HCl (Dilaudid) 1 mg IVP Q4H PRN PRN Reason: pain Last Admin: 05/04/17 04:09 Dose: 1 mg Insulin Human Regular (Novolin R) 0 unit SC [facility] PRN Reason: Protocol Last Admin: 05/03/17 21:38 Dose: Not Given Lisinopril (Zestril) 5 mg PO DAILY [facility] Last Admin: 05/03/17 10:42 Dose: 5 mg Metformin HCl (Glucophage Xr) 500 mg PO BID[facility] Last Admin: 03/22/18 17:19 Dose: 500 mg Mupirocin (Bactroban Ointment) 1 gm TOP BID [facility] Last Admin: 05/03/17 17:19 Dose: 1 applic Silver Sulfadiazine (Silvadene 1% 20 Gm) 0 ea TOP DAILY [facility] Last Admin: 05/03/17 10:43 Dose: 1 applic - Labs Labs: 05/04/17 06:29 05/03/17 06:57 PT 11.2 SECONDS (9.7-12.2) 04/24/17 14:38 INR 1.0 04/24/17 14:38 APTT 32 SECONDS (21-34) 04/24/17 14:38 - Constitutional Appears: Well, Non-toxic, No Acute Distress - Extremities Exam Additional comments: RLE focused exam: DERM: full thickness decubitus ulceration measuring 2.5 x 1.5cm x 0.3 cm at the level of 5th metatarsal base with no active purulent drainage, fibrin/slough n oted at wound base, no serous drainage upon pressing the wound edges, no maceration, no tunneling, no malodor, exposed tendon and bone noted VASC: DP/PT pulses are palpable 1/4 . Cap refill time: < 3 seconds to all digits. Skin temperature warm to warm from proximal to distal. mild non-pitting edema noted on on the foot extending to the ankle with accompanied erythema NEURO: Epicritic and protective sensation grossly intact ORTHO: Pain on palpation of the ulcerated site, Alva's negative, no pain on palpation of the calf, MMT: 5/5 in all 4 directions at the ankle joint - Neurological Exam Neurological Exam: Alert, Awake, Oriented x3 - Psychiatric Exam Psychiatric exam: Normal Affect, Normal Mood Assessment and Plan - Assessment and Plan (Free Text) Assessment: 76 year old male patient seen at bedside 3 days s/p wound debridement of right foot decubitus ulceration (DOS 05/03/17) Plan: Patient seen and evaluated with attending Dr. Josue Afebrile, WBC 8.7 A1c 10.5% - stressed to patient importance of glucose control for wound healing X-rays of the right foot - No abscess, possible OM WBC bone scan - evidence of cellulitis, no evidence of acute OM to right foot or ankle CTA Right - Moderate stenosis of common femoral, SFA, Popliteal arteries. Severe stenosis of anterior tibial, posterior tibial, peroneal arteries s/p angio with Dr. Ordonez (04/25/17) - selective catherization of right femoral artery, atherectomy common femoral, balloon angioplasty tibio peroneal trunk. WCX (04/21): enterobacter cloacae R foot WCx intra-op: no anaerobes Continue abx per ID - Cipro 500mg PO Attempted to take patient to MRI today, at time of visit patient was agreeable however refused at time of imaging. Wound cleaned using saline and dressing applied using silvadene, DSD Patient scheduled for OR 05/07/17 @ 7:30 AM for wound debridement with application of allograft -NPO @ mn Sunday -Hold Heparin Sunday Upon discharge, patient encouraged to be discharged to [facility] for further wound care and physical therapy but patient refuses despite maximal education. Podiatry will continue to follow patient while in house
[2017-05-04 07:41] LABS: ALBUMIN 3.6 g/dL (3.5-5.0); ALT/SGPT 24 U/L (21-72); AST/SGOT 19 U/L (17-59); BLOOD UREA NITROGEN 26 mg/dL (9-20); CALCIUM 9.1 mg/dl (8.6-10.4); GFR AFRICAN-AMERICAN > 60; GFR NON-AFRICAN AMERICAN > 60
[2017-05-04] MEDS: (Novolin R) Insulin Human Regular 100 units/ml vial SC SCH ×4 (08:29→21:22)
[2017-05-04] MEDS: Bacitracin Ointment 30 GM TUBE TOP SCH (09:57)
[2017-05-04] MEDS: Silver Sulfadiazine 1% Cream (20 gm) TOP SCH (09:58)
--- NOTE | 2017-05-04 18:14 | CP.PCM.PN ---
Subjective - Date & Time of Evaluation Date of Evaluation: 05/04/17 Time of Evaluation: 07:40 - Subjective Subjective: Pt seen and examined at bedside. Nursing reports no acute events overnight. He is POD 3 s/p debridement. Patient states pain in his foot is "strong, constant pain in the bone," yet says pain regimen has him well controlled. Nursing reports patient has been sent for MRI multiple times. He is telling this resident and podiatry team he is amenable to MRI and has been given dilaudid dose prior to MRI, yet according to MRI technologists he is refusing due to pain. Patient scheduled for surgery on 05/07/17, for debridement of wound. Denies fever, chills, chest pain, SOB, or abdominal pain,. Objective - Vital Signs/Intake and Output Vital Signs (last 24 hours): Temp Pulse Resp BP Pulse Ox 97.7 F 72 20 103/65 97 05/04/17 16:00 05/04/17 16:00 05/04/17 16:00 05/04/17 16:00 05/04/17 16:00 Intake and Output: 05/04/17 05/04/17 06:59 18:59 Intake Total 450 480 Output Total 1200 400 Balance -750 80 - Medications Medications: Current Medications Aspirin (Ecotrin) 81 mg PO DAILY [facility] Last Admin: 05/04/17 09:51 Dose: 81 mg Bacitracin (Bacitracin) 0 gm TOP DAILY [facility] Last Admin: 05/04/17 09:57 Dose: Not Given Ciprofloxacin (Cipro) 500 mg PO Q12H [facility] Last Admin: 05/04/17 09:52 Dose: 500 mg Famotidine (Pepcid) 20 mg PO DAILY [facility] Last Admin: 05/04/17 09:49 Dose: 20 mg Glimepiride (Amaryl) 4 mg PO DAILY [facility] Last Admin: 05/04/17 09:52 Dose: 4 mg Heparin Sodium (Porcine) (Heparin) 5,000 units SC Q8 [facility] Last Admin: 05/04/17 13:04 Dose: 5,000 units Hydromorphone HCl (Dilaudid) 1 mg IVP Q4H PRN PRN Reason: pain Last Admin: 05/04/17 18:08 Dose: 1 mg Insulin Human Regular (Novolin R) 0 unit SC ACHS [facility] PRN Reason: Protocol Last Admin: 05/04/17 17:48 Dose: 2 unit Lisinopril (Zestril) 5 mg PO DAILY [facility] Last Admin: 05/04/17 09:51 Dose: 5 mg Metformin HCl (Glucophage Xr) 1,000 mg PO BIDCC [facility] Last Admin: 05/04/17 17:46 Dose: 1,000 mg Mupirocin (Bactroban Ointment) 1 gm TOP BID [facility] Last Admin: 05/04/17 18:10 Dose: 1 applic Silver Sulfadiazine (Silvadene 1% 20 Gm) 0 ea TOP DAILY [facility] Last Admin: 05/04/17 09:58 Dose: Not Given - Labs Labs: 05/04/17 06:29 05/04/17 06:29 PT 11.2 SECONDS (9.7-12.2) 04/24/17 14:38 INR 1.0 04/24/17 14:38 APTT 32 SECONDS (21-34) 04/24/17 14:38 - Constitutional Appears: Well - Head Exam Head Exam: ATRAUMATIC, NORMAL INSPECTION, NORMOCEPHALIC - Eye Exam Eye Exam: EOMI, Normal appearance, PERRL Pupil Exam: NORMAL ACCOMODATION, PERRL - ENT Exam ENT Exam: Mucous Membranes Moist, Normal Exam - Neck Exam Neck Exam: Full ROM, Normal Inspection. absent: Lymphadenopathy - Respiratory Exam Respiratory Exam: Decreased Breath Sounds - Cardiovascular Exam Cardiovascular Exam: REGULAR RHYTHM, +S1, +S2 - GI/Abdominal Exam GI & Abdominal Exam: Soft, Diminished Bowel Sounds - Rectal Exam Rectal Exam: Deferred Assessment and Plan (1) Cellulitis Status: Acute (2) Hyperglycemia Status: Acute (3) Non-healing ulcer of foot Status: Acute (4) Osteomyelitis Status: Acute (5) Ankle fracture, right Status: Acute (6) Ankle pain Status: Acute (7) Hyperglycemia without ketosis Status: Acute (8) Leg pain, bilateral Status: Acute (9) Ulcer Status: Acute - Assessment and Plan (Free Text) Plan: antibiotic as ordered ID consult Podiatry consultations for OR on 05/07 Discussed with the podiatry resident I spoke to the patient and advised to call us for if there is a more pain Family bedside As ordered
[2017-05-05] MEDS: HYDROmorphone 1 mg/ml ISec IVP PRN ×4 (05:21→18:59)
[2017-05-05 06:59] LABS: BASO # 0.1 K/uL (0.0-0.2); BASO % 0.7 % (0.0-2.0); EOS # 0.2 K/uL (0.0-0.7); EOS % 2.1 % (0.0-4.0); HEMOGLOBIN 12.7 g/dL (12.0-18.0); LYMPH # 2.4 K/uL (1.0-4.3); LYMPH % 30.9 % (20.0-40.0); MEAN CELL VOLUME 91.3 fL (80.0-94.0); MEAN CORPUSCULAR HEMOGLOBIN 31.9 pg (27.0-31.0); MEAN PLATELET VOLUME 8.7 fL (7.2-11.7); MONO # 0.7 K/uL (0.0-0.8); MONO % 9.2 % (0.0-10.0); NEUT # 4.4 K/uL (1.8-7.0); NEUT % 57.1 % (50.0-75.0); RBC 3.99 Mil/uL (4.40-5.90); RED CELL DISTRIBUTION WIDTH 13.4 % (11.5-14.5); WHITE BLOOD COUNT 7.7 K/uL (4.8-10.8)
[2017-05-05 07:06] LABS: ALBUMIN 3.7 g/dL (3.5-5.0); ALT/SGPT 32 U/L (21-72); AST/SGOT 24 U/L (17-59); BLOOD UREA NITROGEN 29 mg/dL (9-20); CALCIUM 9.1 mg/dl (8.6-10.4); GFR AFRICAN-AMERICAN > 60; GFR NON-AFRICAN AMERICAN > 60
[2017-05-05] MEDS: (Novolin R) Insulin Human Regular 100 units/ml vial SC SCH ×4 (07:58→21:54)
[2017-05-05] MEDS: Bacitracin Ointment 30 GM TUBE TOP SCH (10:14)
[2017-05-05] MEDS: Silver Sulfadiazine 1% Cream (20 gm) TOP SCH (10:15)
--- NOTE | 2017-05-05 11:52 | CP.PCM.PN ---
Subjective - Date & Time of Evaluation Date of Evaluation: 05/05/17 Time of Evaluation: 09:50 - Subjective Subjective: Podiatry Progress Note- Dr. Josue 76 y.o male seen at bedside 4 days s/p right foot lateral decubitus wound debridement. Patient is seen resting comfortably at bedside, in NAD, and AA0x3. Patient reports the same constant pain to the ankle. Rates pain 9/10 and describes the pain as a throbbing pain. Patient denies acute overnight events. Patient reports understanding that he will be going to the OR Sunday morning for a debridement of the ulceration. Patient denies nausea, fever, shortness of breath, chest pain, diarrhea. Patient reports feeling chills sometimes. Objective - Vital Signs/Intake and Output Vital Signs (last 24 hours): Temp Pulse Resp BP Pulse Ox 98.2 F 81 20 124/71 96 05/05/17 07:43 05/05/17 07:43 05/05/17 07:43 05/05/17 07:43 05/05/17 07:43 Intake and Output: 05/05/17 05/05/17 06:59 18:59 Intake Total 550 180 Output Total 500 Balance 50 180 - Medications Medications: Current Medications Aspirin (Ecotrin) 81 mg PO DAILY [facility] Last Admin: 05/05/17 10:13 Dose: 81 mg Bacitracin (Bacitracin) 0 gm TOP DAILY [facility] Last Admin: 05/05/17 10:14 Dose: Not Given Ciprofloxacin (Cipro) 500 mg PO Q12H [facility] Last Admin: 05/05/17 08:42 Dose: 500 mg Famotidine (Pepcid) 20 mg PO DAILY [facility] Last Admin: 05/05/17 10:13 Dose: 20 mg Glimepiride (Amaryl) 4 mg PO DAILY [facility] Last Admin: 05/05/17 10:13 Dose: 4 mg Heparin Sodium (Porcine) (Heparin) 5,000 units SC Q8 [facility] Last Admin: 05/05/17 05:21 Dose: 5,000 units Hydromorphone HCl (Dilaudid) 1 mg IVP Q4H PRN PRN Reason: pain Last Admin: 05/05/17 10:13 Dose: 1 mg Insulin Human Regular (Novolin R) 0 unit SC ACHS [facility] PRN Reason: Protocol Last Admin: 05/05/17 07:58 Dose: Not Given Lisinopril (Zestril) 5 mg PO DAILY [facility] Last Admin: 05/05/17 10:13 Dose: 5 mg [facility] ([facility]) [facility] Last Admin: 05/05/17 08:42 Dose: 1,000 mg Mupirocin (Bactroban Ointment) 1 gm TOP BID [facility] Last Admin: 05/05/17 10:15 Dose: Not Given Silver Sulfadiazine (Silvadene 1% 20 Gm) 0 ea TOP DAILY [facility] Last Admin: 05/05/17 10:15 Dose: Not Given - Labs Labs: 05/05/17 06:30 05/05/17 06:30 PT 11.2 SECONDS (9.7-12.2) 04/24/17 14:38 INR 1.0 04/24/17 14:38 APTT 32 SECONDS (21-34) 04/24/17 14:38 - Constitutional Appears: Well, Non-toxic, No Acute Distress - Extremities Exam Extremities Exam: absent: Calf Tenderness Additional comments: RLE focused exam: DERM: full thickness decubitus ulceration measuring 2.5 x 1.5cm x 0.3 cm at the level of 5th metatarsal base with no active purulent drainage, fibrin/slough noted at wound base, no serous drainage upon pressing the wound edges, no maceration, mild erythema to the periwound, no streaking, no tunneling, no malodor, exposed tendon and bone noted, no flucutance appreciated VASC: DP/PT pulses are palpable 1/4 . Cap refill time: < 3 seconds to all digits. Skin temperature warm to warm from proximal to distal. mild non-pitting edema noted on on the foot extending to the ankle with accompanied erythema NEURO: Epicritic and protective sensation grossly intact ORTHO: Pain on palpation of the ulcerated site, Alva's negative, no pain on palpation of the calf, MMT: 5/5 in all 4 directions at the ankle joint - Neurological Exam Neurological Exam: Alert, Awake, Oriented x3 - Psychiatric Exam Psychiatric exam: Normal Affect, Normal Mood Assessment and Plan - Assessment and Plan (Free Text) Assessment: 76 year old male patient seen at bedside 4 days s/p wound debridement of right foot decubitus ulceration (DOS 05/03/17) Plan: Patient seen and evaluated with attending Dr. Josue Afebrile, WBC 7.7 A1c 10.5% - stressed to patient importance of glucose control for wound healing X-rays of the right foot - No abscess, possible OM WBC bone scan - evidence of cellulitis, no evidence of acute OM to right foot or ankle CTA Right - Moderate stenosis of common femoral, SFA, Popliteal arteries. Severe stenosis of anterior tibial, posterior tibial, peroneal arteries s/p angio with Dr. Ordonez (04/25/17) - selective catherization of right femoral artery, atherectomy common femoral, balloon angioplasty tibio peroneal trunk. WCX (04/21): enterobacter cloacae R foot WCx intra-op: no anaerobes Continue abx per ID - Cipro 500mg PO Patient refused MRI yesterday. Recommending MRI -will speak to patient tomorrow Wound cleaned using saline and dressing applied with xeroform, DSD Patient scheduled for OR 05/07/17 @ 7:30 AM for wound debridement with application of allograft -NPO @ mn Sunday -Hold Heparin Sunday Upon discharge, patient encouraged to be discharged to [facility] for further wound care and physical therapy but patient refuses despite maximal education. Podiatry will continue to follow patient while in house
--- NOTE | 2017-05-05 13:32 | CP.PCM.PN ---
Subjective - Date & Time of Evaluation Date of Evaluation: 05/05/17 Time of Evaluation: 07:20 - Subjective Subjective: clinically same Objective - Vital Signs/Intake and Output Vital Signs (last 24 hours): Temp Pulse Resp BP Pulse Ox 98.2 F 81 20 124/71 96 05/05/17 07:43 05/05/17 07:43 05/05/17 07:43 05/05/17 07:43 05/05/17 07:43 Intake and Output: 05/05/17 05/05/17 06:59 18:59 Intake Total 550 180 Output Total 500 Balance 50 180 - Medications Medications: Current Medications Aspirin (Ecotrin) 81 mg PO DAILY [facility] Last Admin: 05/05/17 10:13 Dose: 81 mg Bacitracin (Bacitracin) 0 gm TOP DAILY [facility] Last Admin: 05/05/17 10:14 Dose: Not Given Ciprofloxacin (Cipro) 500 mg PO Q12H [facility] Last Admin: 05/05/17 08:42 Dose: 500 mg Famotidine (Pepcid) 20 mg PO DAILY [facility] Last Admin: 05/05/17 10:13 Dose: 20 mg Glimepiride (Amaryl) 4 mg PO DAILY [facility] Last Admin: 05/05/17 10:13 Dose: 4 mg Heparin Sodium (Porcine) (Heparin) 5,000 units SC Q8 [facility] Last Admin: 05/05/17 05:21 Dose: 5,000 units Hydromorphone HCl (Dilaudid) 1 mg IVP Q4H PRN PRN Reason: pain Last Admin: 05/05/17 10:13 Dose: 1 mg Insulin Human Regular (Novolin R) 0 unit SC ACHS [facility] PRN Reason: Protocol Last Admin: 05/05/17 12:30 Dose: 2 unit Lisinopril (Zestril) 5 mg PO DAILY [facility] Last Admin: 05/05/17 10:13 Dose: 5 mg Met[facility] ([facility] Last Admin: 05/05/17 08:42 Dose: 1,000 mg Mupirocin (Bactroban Ointment) 1 gm TOP BID [facility] Last Admin: 05/05/17 10:15 Dose: Not Given Silver Sulfadiazine (Silvadene 1% 20 Gm) 0 ea TOP DAILY [facility] Last Admin: 05/05/17 10:15 Dose: Not Given - Labs Labs: 05/05/17 06:30 05/05/17 06:30 PT 11.2 SECONDS (9.7-12.2) 04/24/17 14:38 INR 1.0 04/24/17 14:38 APTT 32 SECONDS (21-34) 04/24/17 14:38 - Constitutional Appears: Well - Head Exam Head Exam: ATRAUMATIC, NORMAL INSPECTION, NORMOCEPHALIC - Eye Exam Eye Exam: EOMI, Normal appearance, PERRL Pupil Exam: NORMAL ACCOMODATION, PERRL - ENT Exam ENT Exam: Mucous Membranes Moist, Normal Exam - Neck Exam Neck Exam: Full ROM, Normal Inspection. absent: Lymphadenopathy - Respiratory Exam Respiratory Exam: Decreased Breath Sounds - Cardiovascular Exam Cardiovascular Exam: REGULAR RHYTHM, +S1, +S2 - GI/Abdominal Exam GI & Abdominal Exam: Soft, Diminished Bowel Sounds - Rectal Exam Rectal Exam: Deferred Assessment and Plan (1) Cellulitis Status: Acute (2) Hyperglycemia Status: Acute (3) Non-healing ulcer of foot Status: Acute (4) Osteomyelitis Status: Acute (5) Ankle fracture, right Status: Acute (6) Ankle pain Status: Acute (7) Hyperglycemia without ketosis Status: Acute (8) Leg pain, bilateral Status: Acute (9) Ulcer Status: Acute
[2017-05-06] MEDS: HYDROmorphone 1 mg/ml ISec IVP PRN ×3 (00:04→20:09)
[2017-05-06] MEDS: (Novolin R) Insulin Human Regular 100 units/ml vial SC SCH ×4 (08:10→21:39)
[2017-05-06] MEDS: Bacitracin Ointment 30 GM TUBE TOP SCH (09:39)
[2017-05-06] MEDS: Silver Sulfadiazine 1% Cream (20 gm) TOP SCH (09:40)
--- NOTE | 2017-05-06 15:34 | CP.PCM.PN ---
Subjective - Date & Time of Evaluation Date of Evaluation: 05/06/17 Time of Evaluation: 08:00 - Subjective Subjective: 76 y.o male seen at bedside 4 days s/p right foot lateral decubitus wound debridement. Patient is seen resting comfortably at bedside, in NAD, and AA0x3. Patient reports the same constant pain to the ankle. Rates pain 9/10 and describes the pain as a throbbing pain. Patient denies acute overnight events. Patient reports understanding that he will be going to the OR Sunday morning for a debridement of the ulceration. Patient denies nausea, fever, shortness of breath, chest pain, diarrhea. Patient reports feeling chills sometimes. Objective - Vital Signs/Intake and Output Vital Signs (last 24 hours): Temp Pulse Resp BP Pulse Ox 98.1 F 74 20 128/72 96 05/06/17 08:51 05/06/17 08:51 05/06/17 08:51 05/06/17 08:51 05/06/17 08:51 Intake and Output: 05/06/17 05/06/17 06:59 18:59 Intake Total 420 200 Output Total 900 800 Balance -480 -600 - Medications Medications: Current Medications Aspirin (Ecotrin) 81 mg PO DAILY [facility] Last Admin: 05/06/17 09:53 Dose: 81 mg Bacitracin (Bacitracin) 0 gm TOP DAILY [facility] Last Admin: 05/06/17 09:39 Dose: Not Given Ciprofloxacin (Cipro) 500 mg PO Q12H [facility] Last Admin: 05/06/17 09:38 Dose: 500 mg Famotidine (Pepcid) 20 mg PO DAILY [facility] Last Admin: 05/06/17 09:53 Dose: 20 mg Glimepiride (Amaryl) 4 mg PO DAILY [facility] Last Admin: 05/06/17 09:38 Dose: 4 mg Heparin Sodium (Porcine) (Heparin) 5,000 units SC Q8 [facility] Last Admin: 05/06/17 13:04 Dose: 5,000 units Hydromorphone HCl (Dilaudid) 1 mg IVP Q4H PRN PRN Reason: pain Last Admin: 05/06/17 04:06 Dose: 1 mg Insulin Human Regular (Novolin R) 0 unit SC ACHS [facility] PRN Reason: Protocol Last Admin: 05/06/17 12:30 Dose: 3 unit Lisinopril (Zestril) 5 mg PO DAILY [facility] Last Admin: 05/06/17 09:53 Dose: 5 mg Metformin HCl (Gl[facility]) [facility] Last Admin: 05/06/17 09:38 Dose: 1,000 mg Mupirocin (Bactroban Ointment) 1 gm TOP BID [facility] Last Admin: 05/06/17 09:39 Dose: Not Given Silver Sulfadiazine (Silvadene 1% 20 Gm) 0 ea TOP DAILY [facility] Last Admin: 05/06/17 09:40 Dose: Not Given - Labs Labs: 05/05/17 06:30 05/05/17 06:30 PT 11.2 SECONDS (9.7-12.2) 04/24/17 14:38 INR 1.0 04/24/17 14:38 APTT 32 SECONDS (21-34) 04/24/17 14:38 - Constitutional Appears: Non-toxic, Chronically Ill - Head Exam Head Exam: NORMOCEPHALIC - Eye Exam Eye Exam: PERRL - ENT Exam ENT Exam: Mucous Membranes Dry - Neck Exam Neck Exam: absent: Lymphadenopathy - Respiratory Exam Respiratory Exam: Decreased Breath Sounds - Cardiovascular Exam Cardiovascular Exam: REGULAR RHYTHM - GI/Abdominal Exam GI & Abdominal Exam: Distended, Soft - Rectal Exam Rectal Exam: Deferred - Exam Exam: NORMAL INSPECTION Assessment and Plan (1) Cellulitis Status: Acute (2) Hyperglycemia Status: Acute (3) Non-healing ulcer of foot Status: Acute (4) Hyperglycemia without ketosis Status: Acute (5) Leg pain, bilateral Status: Acute (6) Ulcer Status: Acute (7) Osteomyelitis Status: Acute - Assessment and Plan (Free Text) Assessment: IV rx reordered
--- NOTE | 2017-05-06 15:46 | CP.PCM.PN ---
Subjective - Date & Time of Evaluation Date of Evaluation: 05/06/17 Time of Evaluation: 12:00 - Subjective Subjective: Podiatry Progress Note- Dr. Josue 76 y.o male seen at bedside 5 days s/p right foot lateral decubitus wound debridement. Patient is seen resting comfortably at bedside, in NAD, and AA0x3. Patient reports the same constant pain to the ankle. Rates pain 9/10 and describes the pain as a throbbing pain. Patient denies acute overnight events. Patient reports understanding that he will be going to the OR Sunday morning for a debridement of the ulceration with graft application as well as a bone biopsy to rule out OM. Patient denies nausea, fever, shortness of breath, chest pain, diarrhea or chills. No new pedal complaints. Objective - Vital Signs/Intake and Output Vital Signs (last 24 hours): Temp Pulse Resp BP Pulse Ox 98.1 F 74 20 128/72 96 05/06/17 08:51 05/06/17 08:51 05/06/17 08:51 05/06/17 08:51 05/06/17 08:51 Intake and Output: 05/06/17 05/06/17 06:59 18:59 Intake Total 420 200 Output Total 900 800 Balance -480 -600 - Medications Medications: Current Medications Aspirin (Ecotrin) 81 mg PO DAILY [facility] Last Admin: 05/06/17 09:53 Dose: 81 mg Bacitracin (Bacitracin) 0 gm TOP DAILY [facility] Last Admin: 05/06/17 09:39 Dose: Not Given Ciprofloxacin (Cipro) 500 mg PO Q12H [facility] Last Admin: 05/06/17 09:38 Dose: 500 mg Famotidine (Pepcid) 20 mg PO DAILY [facility] Last Admin: 05/06/17 09:53 Dose: 20 mg Glimepiride (Amaryl) 4 mg PO DAILY [facility] Last Admin: 05/06/17 09:38 Dose: 4 mg Heparin Sodium (Porcine) (Heparin) 5,000 units SC Q8 [facility] Last Admin: 05/06/17 13:04 Dose: 5,000 units Hydromorphone HCl (Dilaudid) 1 mg IVP Q4H PRN PRN Reason: pain Last Admin: 05/06/17 04:06 Dose: 1 mg Insulin Human Regular (Novolin R) 0 unit SC ACHS [facility] PRN Reason: Protocol Last Admin: 05/06/17 12:30 Dose: 3 unit Lisinopril (Zestril) 5 mg PO DAILY [facility] Last Admin: 05/06/17 09:53 Dose: 5 mg Metformin [facility] ([facility]) [facility] Last Admin: 05/06/17 09:38 Dose: 1,000 mg Mupirocin (Bactroban Ointment) 1 gm TOP BID [facility] Last Admin: 05/06/17 09:39 Dose: Not Given Silver Sulfadiazine (Silvadene 1% 20 Gm) 0 ea TOP DAILY [facility] Last Admin: 05/06/17 09:40 Dose: Not Given - Labs Labs: 05/05/17 06:30 05/05/17 06:30 PT 11.2 SECONDS (9.7-12.2) 04/24/17 14:38 INR 1.0 04/24/17 14:38 APTT 32 SECONDS (21-34) 04/24/17 14:38 - Constitutional Appears: Well, Non-toxic, No Acute Distress - Extremities Exam Extremities Exam: absent: Calf Tenderness Additional comments: RLE focused exam: DERM: full thickness decubitus ulceration measuring 2.5 x 1.5cm x 0.3 cm at the level of 5th metatarsal base with no active purulent drainage, fibrin/slough noted at wound base, no serous drainage upon pressing the wound edges, no maceration, mild erythema to the periwound, no streaking, no tunneling, no malodor, exposed tendon and bone noted, no flucutance appreciated VASC: DP/PT pulses are palpable 1/4 . Cap refill time: < 3 seconds to all digits. Skin temperature warm to warm from proximal to distal. mild non-pitting edema noted on on the foot extending to the ankle with accompanied erythema NEURO: Epicritic and protective sensation grossly intact ORTHO: Pain on palpation of the ulcerated site, Alva's negative, no pain on palpation of the calf, MMT: 5/5 in all 4 directions at the ankle joint - Neurological Exam Neurological Exam: Alert, Awake, Oriented x3 - Psychiatric Exam Psychiatric exam: Normal Affect, Normal Mood Assessment and Plan - Assessment and Plan (Free Text) Assessment: 76 year old male patient seen at bedside 5 days s/p wound debridement of right foot decubitus ulceration (DOS 05/03/17) Plan: Patient seen and evaluated with attending Dr. Josue Afebrile, WBC 7.7 A1c 10.5% - stressed to patient importance of glucose control for wound healing X-rays of the right foot - No abscess, possible OM WBC bone scan - evidence of cellulitis, no evidence of acute OM to right foot or ankle CTA Right - Moderate stenosis of common femoral, SFA, Popliteal arteries. Severe stenosis of anterior tibial, posterior tibial, peroneal arteries s/p angio with Dr. Ordonez (04/25/17) - selective catherization of right femoral artery, atherectomy common femoral, balloon angioplasty tibio peroneal trunk. WCX (04/21): enterobacter cloacae R foot WCx intra-op: no anaerobes Continue abx per ID - Cipro 500mg PO can d/c MRI, will do bone biopsy in OR to r/o OM Wound cleaned using saline and dressing applied with mupricin, dsd, and ABC -Patient has mupirocin, silvedene, and bactroban for dressing change -Depending on how wound appears clinically will change between the three ointment at the moment Patient scheduled for OR 05/07/17 @ 7:30 AM for wound debridement with application of allograft and bone biopsy -NPO @ mn Sunday -Hold Heparin Sunday -Please provide medical clearance. Thank you Upon discharge, patient encouraged to be discharged to [facility] for further wound care and physical therapy but patient refuses despite maximal education. Podiatry will continue to follow patient while in house
--- NOTE | 2017-05-06 18:20 | CP.PCM.PN ---
Subjective - Date & Time of Evaluation Date of Evaluation: 05/06/17 Time of Evaluation: 07:40 - Subjective Subjective: clinically same Objective - Vital Signs/Intake and Output Vital Signs (last 24 hours): Temp Pulse Resp BP Pulse Ox 98.0 F 90 20 103/64 97 05/06/17 15:00 05/06/17 15:00 05/06/17 15:00 05/06/17 15:00 05/06/17 15:00 Intake and Output: 05/06/17 05/06/17 06:59 18:59 Intake Total 420 200 Output Total 900 800 Balance -480 -600 - Medications Medications: Current Medications Aspirin (Ecotrin) 81 mg PO DAILY [facility] Last Admin: 05/06/17 09:53 Dose: 81 mg Bacitracin (Bacitracin) 0 gm TOP DAILY [facility] Last Admin: 05/06/17 09:39 Dose: Not Given Ciprofloxacin (Cipro) 500 mg PO Q12H [facility] Last Admin: 05/06/17 09:38 Dose: 500 mg Famotidine (Pepcid) 20 mg PO DAILY [facility] Last Admin: 05/06/17 09:53 Dose: 20 mg Glimepiride (Amaryl) 4 mg PO DAILY [facility] Last Admin: 05/06/17 09:38 Dose: 4 mg Heparin Sodium (Porcine) (Heparin) 5,000 units SC Q8 [facility] Last Admin: 05/06/17 13:04 Dose: 5,000 units Hydromorphone HCl (Dilaudid) 1 mg IVP Q4H PRN PRN Reason: pain Last Admin: 05/06/17 04:06 Dose: 1 mg Insulin Human Regular (Novolin R) 0 unit SC ACHS [facility] PRN Reason: Protocol Last Admin: 05/06/17 12:30 Dose: 3 unit Lisinopril (Zestril) 5 mg PO DAILY [facility] Last Admin: 05/06/17 09:53 Dose: 5 mg Metformin HCl (Glucophage Xr) 1,000 mg PO BIDCC [facility] Last Admin: 05/06/17 17:29 Dose: 1,000 mg Silver Sulfadiazine (Silvadene 1% 20 Gm) 0 ea TOP DAILY [facility] Last Admin: 05/06/17 09:40 Dose: Not Given - Labs Labs: 05/05/17 06:30 05/05/17 06:30 PT 11.2 SECONDS (9.7-12.2) 04/24/17 14:38 INR 1.0 04/24/17 14:38 APTT 32 SECONDS (21-34) 04/24/17 14:38 - Constitutional Appears: Well - Head Exam Head Exam: ATRAUMATIC, NORMAL INSPECTION, NORMOCEPHALIC - Eye Exam Eye Exam: EOMI, Normal appearance, PERRL Pupil Exam: NORMAL ACCOMODATION, PERRL - ENT Exam ENT Exam: Mucous Membranes Moist, Normal Exam - Neck Exam Neck Exam: Full ROM, Normal Inspection. absent: Lymphadenopathy - Respiratory Exam Respiratory Exam: Decreased Breath Sounds - Cardiovascular Exam Cardiovascular Exam: REGULAR RHYTHM, +S1, +S2 - GI/Abdominal Exam GI & Abdominal Exam: Soft, Diminished Bowel Sounds - Rectal Exam Rectal Exam: Deferred Assessment and Plan (1) Cellulitis Status: Acute (2) Hyperglycemia Status: Acute (3) Non-healing ulcer of foot Status: Acute (4) Osteomyelitis Status: Acute (5) Ankle fracture, right Status: Acute (6) Ankle pain Status: Acute (7) Hyperglycemia without ketosis Status: Acute (8) Leg pain, bilateral Status: Acute (9) Ulcer Status: Acute
[2017-05-07] MEDS: HYDROmorphone 1 mg/ml ISec IVP PRN ×4 (00:09→18:30)
[2017-05-07] MEDS: Bupivacaine 0.5% Inj(30mL) IJ ONE ×2 (07:42→08:15)
[2017-05-07] MEDS: Lidocaine 1% Inj (20ml) INFIL ONE ×2 (07:43→08:15)
[2017-05-07] MEDS: Bacitracin 150,000 UNIT in Sodium Chloride 0.9% Irrig 3,000 ML IR SCH ×2 (07:44→08:18)
[2017-05-07] MEDS ORDERED: Propofol 10 mg/ml Inj (20 ML) ONE (07:57)
[2017-05-07] MEDS: (Novolin R) Insulin Human Regular 100 units/ml vial SC SCH ×4 (08:30→22:40)
[2017-05-07] MEDS ORDERED: Bacitracin Ointment 30 GM TUBE ONE (08:50)
[2017-05-07] MEDS ORDERED: Ciprofloxacin 400mg/200ml D5W 400 MG/200 ML BAG IVPB ONE (09:02)
[2017-05-07] MEDS ORDERED: Phenylephrine 10 mg/ml Inj ONE (09:09)
--- NOTE | 2017-05-07 09:18 | PCM.SURG1 ---
Surgeon's Initial Post Op Note - Surgeon's Notes Surgeon: Dr. Josue Continuous Improvement Manager: Guilherme Figueroa Type of Anesthesia: General LMA, Local (20cc 1:1 mixture 1% lidocaine plain & 0.5% marcaine plain) Anesthesia Administered By: Dr. Gastelum Pre-Operative Diagnosis: Right foot nonhealing wound Operative Findings: See operative report. Materials: 2cc Rheo allograft with 2cc of 0.5% marcaine plain; AlloDerm Regenerative Tissue Matrix 4 x 7 cm; 3-0 nylon Post-Operative Diagnosis: Same as above Operation Performed: Right foot wound debridement with application of allograft Specimen/Specimens Removed: 1) Right foot wound culture, 2) right foot distal bone culture, 3) right foot distal bone - path, 4) right foot proximal bone culture, 5) right foot proximal bone clean margin - path Estimated Blood Loss: EBL {In ML}: 2 Blood Products Given: N/A Drains Used: No Drains Post-Op Condition: Good Date of Surgery/Procedure: 05/07/17 Time of Surgery/Procedure: 09:23
[2017-05-07] MEDS ORDERED: HYDROmorphone 0.5 mg/0.5 ml ISec IVP PRN (09:22)
[2017-05-07] MEDS ORDERED: Oxycodone/Acetaminophen 5/325 mg Tab PO PRN (09:27)
[2017-05-07] MEDS: Bacitracin Ointment 30 GM TUBE TOP SCH (11:00)
[2017-05-07] MEDS: Silver Sulfadiazine 1% Cream (20 gm) TOP SCH (11:00)
--- NOTE | 2017-05-07 11:40 | CP.PCM.PN ---
<Oliver Roy - Last Filed: 05/07/17 14:11> Subjective - Date & Time of Evaluation Date of Evaluation: 05/07/17 Time of Evaluation: 11:34 - Subjective Subjective: Progress Note for Dr. Tello's Service Pt seen and examined at bedside. Nursing reports no acute events overnight. He is for debridement with allograft, and bone biopsy this AM. He states his pain worsened over the weekend, and needed his pain medications adjusted. He denies fever, chills, chest pain, SOB, abd pain, N/V. Objective - Vital Signs/Intake and Output Vital Signs (last 24 hours): Temp Pulse Resp BP Pulse Ox 98.3 F 72 10 L 122/67 100 05/07/17 10:00 05/07/17 10:00 05/07/17 10:00 05/07/17 10:00 05/07/17 10:00 Intake and Output: 05/07/17 05/07/17 06:59 18:59 Intake Total 200 650 Output Total 800 Balance 200 -150 - Medications Medications: Current Medications Acetaminophen (Tylenol 325mg Tab) 650 mg PO Q6 PRN PRN Reason: Pain, Mild (1-3) Aspirin (Ecotrin) 81 mg PO DAILY [facility] Last Admin: 05/06/17 09:53 Dose: 81 mg Bacitracin (Bacitracin) 0 gm TOP DAILY [facility] Last Admin: 05/06/17 09:39 Dose: Not Given Ciprofloxacin (Cipro) 500 mg PO Q12H [facility] Last Admin: 05/07/17 09:00 Dose: Not Given Famotidine (Pepcid) 20 mg PO DAILY [facility] Last Admin: 05/06/17 09:53 Dose: 20 mg Glimepiride (Amaryl) 4 mg PO DAILY [facility] Last Admin: 05/06/17 09:38 Dose: 4 mg Heparin Sodium (Porcine) (Heparin) 5,000 units SC Q8 [facility] Last Admin: 05/06/17 13:04 Dose: 5,000 units Hydromorphone HCl (Dilaudid) 1 mg IVP Q4H PRN PRN Reason: pain Last Admin: 05/07/17 04:27 Dose: 1 mg Insulin Human Regular (Novolin R) 0 unit SC ACHS [facility] PRN Reason: Protocol Last Admin: 05/07/17 08:30 Dose: Not Given Lisinopril (Zestril) 5 mg PO DAILY [facility] Last Admin: 05/07/17 07:27 Dose: 5 mg [facility] Last Admin: 05/07/17 09:00 Dose: Not Given Oxycodone/Acetaminophen (Percocet 5/325 Mg Tab) 1 tab PO Q4H PRN PRN Reason: Pain, moderate (4-7) Stop: 05/10/17 09:28 Oxycodone/Acetaminophen (Percocet 5/325 Mg Tab) 2 tab PO Q4H PRN PRN Reason: Pain, severe (8-10) Stop: 05/10/17 09:28 Silver Sulfadiazine (Silvadene 1% 20 Gm) 0 ea TOP DAILY [facility] Last Admin: 05/06/17 09:40 Dose: Not Given - Labs Labs: 05/05/17 06:30 05/05/17 06:30 PT 11.2 SECONDS (9.7-12.2) 04/24/17 14:38 INR 1.0 04/24/17 14:38 APTT 32 SECONDS (21-34) 04/24/17 14:38 - Constitutional Appears: Non-toxic, No Acute Distress - Head Exam Head Exam: ATRAUMATIC, NORMAL INSPECTION - Eye Exam Eye Exam: EOMI. absent: Scleral icterus Pupil Exam: PERRL - ENT Exam ENT Exam: Mucous Membranes Moist - Respiratory Exam Respiratory Exam: Clear to Ausculation Bilateral, NORMAL BREATHING PATTERN. absent: Accessory Muscle Use, Rales, Rhonchi, Wheezes - Cardiovascular Exam Cardiovascular Exam: REGULAR RHYTHM, +S1, +S2 - GI/Abdominal Exam GI & Abdominal Exam: Soft, Normal Bowel Sounds. absent: Tenderness - Extremities Exam Extremities Exam: Tenderness (right ankle). absent: Normal Inspection, Pedal Edema Additional comments: DP/PT pulses: reduced (1/4) but intact - Back Exam Back Exam: absent: CVA tenderness (L), CVA tenderness (R) - Neurological Exam Neurological Exam: Alert, Awake, Oriented x3 - Psychiatric Exam Psychiatric exam: Normal Affect, Normal Mood - Skin Skin Exam: Normal Color, Warm Assessment and Plan - Assessment and Plan (Free Text) Plan: RLE cellulitis Podiatry consult placed-Dr. Liat sandoval appreciated Lower extremity duplex- negative for DVT X-rays of the right foot- Void in the soft tissue with radiolucency at the site of the wound but no presence of soft tissue emphysema. Periosteal giovanna reaction noted at the styloid process of the 5th metatarsal possibly indicating acute OM NM Bone Scan (04/28/17): findings c/w right ankle/foot cellulitis. Negative for OM. Wound CX (04/21/17): enterobacter cloacae - repeat culture Wound dressings- saline and dressing applied using Betadine, DSD, Bacitracin POD 6 s/p debridement of right foot Scheduled for repeat debridement/ bone biopsy Vascular consult placed-Dr. Mery sandovla appreciated Right CARA 0.86, Left CARA 0.77 with mild to moderate arterial insufficiency CTA- Moderate stenosis of common femoral, SFA, Popliteal arteries. Severe stenosis of anterior tibial, posterior tibial, peroneal arteries MRI switched to bonescan but patient refused Angiography (R)- mod stenosis of common femoral art, Mod stenosis @ origin of SFA. 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 severe tibial disease with small posterior tibial as major target vessel in foot. ID consult placed-Dr. Usman sandoval appreciated Cipro 500mg PO q12hrs (04/29/17, Day 9) as per ID patient will need close follow up and continued abx upon d/c Dilaudid 1mg IV q4hrs PRN DM A1C: 10.5 Glimeperide 4mg PO daily Metformin XR to 1000mg PO BID Lisinopril 5mg PO daily [facility] ASA 81mg PO daily f/u c-peptide f/u ECHO - if no CHF consider addition of Actos Prophylaxis Pepcid 20mg PO daily Heparin 5000u Q8H Held SCDs C/I Case discussed with Dr. Tello All management as per Dr. Tello <Rashida Tello S - Last Filed: 05/09/17 08:06> Subjective - Subjective Subjective: case buddy dn d/w staff concurred jessica wolf for diabetic fooot ucl anddebridement with cirpo as antibiotic id an dpod on board Objective - Vital Signs/Intake and Output Vital Signs (last 24 hours): Temp Pulse Resp BP Pulse Ox 98.5 F 82 20 123/73 98 05/09/17 00:00 05/09/17 00:00 05/09/17 00:00 05/09/17 00:00 05/09/17 00:00 Intake and Output: 05/09/17 05/09/17 06:59 18:59 Intake Total 660 Output Total 1200 Balance -540 - Medications Medications: Current Medications Acetaminophen (Tylenol 325mg Tab) 650 mg PO Q6 PRN PRN Reason: Pain, Mild (1-3) Aspirin (Ecotrin) 81 mg PO DAILY [facility] Last Admin: 05/08/17 09:41 Dose: 81 mg Bacitracin (Bacitracin) 0 gm TOP DAILY [facility] Last Admin: 05/08/17 09:43 Dose: Not Given Ciprofloxacin (Cipro) 500 mg PO Q12H [facility] Last Admin: 05/08/17 20:51 Dose: 500 mg Famotidine (Pepcid) 20 mg PO DAILY [facility] Last Admin: 05/08/17 09:41 Dose: 20 mg Glimepiride (Amaryl) 4 mg PO DAILY [facility] Last Admin: 05/08/17 09:42 Dose: 4 mg Heparin Sodium (Porcine) (Heparin) 5,000 units SC Q8 [facility] Last Admin: 05/09/17 05:38 Dose: 5,000 units Hydromorphone HCl (Dilaudid) 1 mg IVP Q4H PRN PRN Reason: pain Last Admin: 05/08/17 20:52 Dose: 1 mg Insulin Human Regular (Novolin R) 0 unit SC ACHS [facility] PRN Reason: Protocol Last Admin: 05/09/17 07:58 Dose: Not Given Lisinopril (Zestril) 5 mg PO DAILY [facility] Last Admin: 05/08/17 09:42 Dose: 5 mg Metformin HCl (Glucophage Xr) 1,000 mg PO BIDCC [facility] Last Admin: 05/08/17 16:28 Dose: 1,000 mg Oxycodone/Acetaminophen (Percocet 5/325 Mg Tab) 1 tab PO Q4H PRN PRN Reason: Pain, moderate (4-7) Stop: 05/10/17 09:28 Oxycodone/Acetaminophen (Percocet 5/325 Mg Tab) 2 tab PO Q4H PRN PRN Reason: Pain, severe (8-10) Stop: 05/10/17 09:28 Last Admin: 05/09/17 02:51 Dose: 2 tab Saccharomyces Boulardii (Florastor) 250 mg PO BID [facility] Last Admin: 05/08/17 17:27 Dose: 250 mg Silver Sulfadiazine (Silvadene 1% 20 Gm) 0 ea TOP DAILY [facility] Last Admin: 05/08/17 09:43 Dose: Not Given - Labs Labs: 05/08/17 07:40 05/08/17 07:40 PT 11.2 SECONDS (9.7-12.2) 04/24/17 14:38 INR 1.0 04/24/17 14:38 APTT 32 SECONDS (21-34) 04/24/17 14:38 Assessment and Plan (1) Cellulitis Status: Acute (2) Hyperglycemia Status: Acute (3) Non-healing ulcer of foot Status: Acute (4) Osteomyelitis Status: Acute (5) Ankle fracture, right Status: Acute (6) Ankle pain Status: Acute (7) Hyperglycemia without ketosis Status: Acute (8) Leg pain, bilateral Status: Acute (9) Ulcer Status: Acute
--- NOTE | 2017-05-07 12:51 | CP.PCM.PN ---
Subjective - Date & Time of Evaluation Date of Evaluation: 05/07/17 Time of Evaluation: 07:00 - Subjective Subjective: s/p right foot debridement tolerated well Objective - Vital Signs/Intake and Output Vital Signs (last 24 hours): Temp Pulse Resp BP Pulse Ox 98.3 F 72 10 L 122/67 100 05/07/17 10:00 05/07/17 10:00 05/07/17 10:00 05/07/17 10:00 05/07/17 10:00 Intake and Output: 05/07/17 05/07/17 06:59 18:59 Intake Total 200 650 Output Total 800 Balance 200 -150 - Medications Medications: Current Medications Acetaminophen (Tylenol 325mg Tab) 650 mg PO Q6 PRN PRN Reason: Pain, Mild (1-3) Aspirin (Ecotrin) 81 mg PO DAILY [facility] Last Admin: 05/07/17 11:00 Dose: Not Given Bacitracin (Bacitracin) 0 gm TOP DAILY [facility] Last Admin: 05/07/17 11:00 Dose: Not Given Ciprofloxacin (Cipro) 500 mg PO Q12H [facility] Last Admin: 05/07/17 09:00 Dose: Not Given Famotidine (Pepcid) 20 mg PO DAILY [facility] Last Admin: 05/07/17 11:00 Dose: 20 mg Glimepiride (Amaryl) 4 mg PO DAILY [facility] Last Admin: 05/07/17 11:00 Dose: 4 mg Heparin Sodium (Porcine) (Heparin) 5,000 units SC Q8 [facility] Last Admin: 05/06/17 13:04 Dose: 5,000 units Hydromorphone HCl (Dilaudid) 1 mg IVP Q4H PRN PRN Reason: pain Last Admin: 05/07/17 04:27 Dose: 1 mg Insulin Human Regular (Novolin R) 0 unit SC ACHS [facility] PRN Reason: Protocol Last Admin: 05/07/17 12:46 Dose: 3 unit Lisinopril (Zestril) 5 mg PO DAILY [facility] Last Admin: 05/07/17 11:00 Dose: Not Given Metformin HCl (Glucophage Xr) 1,000 mg PO BIDCC [facility] Last Admin: 05/07/17 09:00 Dose: Not Given Oxycodone/Acetaminophen (Percocet 5/325 Mg Tab) 1 tab PO Q4H PRN PRN Reason: Pain, moderate (4-7) Stop: 05/10/17 09:28 Oxycodone/Acetaminophen (Percocet 5/325 Mg Tab) 2 tab PO Q4H PRN PRN Reason: Pain, severe (8-10) Stop: 05/10/17 09:28 Silver Sulfadiazine (Silvadene 1% 20 Gm) 0 ea TOP DAILY [facility] Last Admin: 05/07/17 11:00 Dose: Not Given - Labs Labs: 05/05/17 06:30 05/05/17 06:30 PT 11.2 SECONDS (9.7-12.2) 04/24/17 14:38 INR 1.0 04/24/17 14:38 APTT 32 SECONDS (21-34) 04/24/17 14:38 - Constitutional Appears: Non-toxic, Chronically Ill - Head Exam Head Exam: NORMOCEPHALIC - Eye Exam Eye Exam: PERRL - ENT Exam ENT Exam: Mucous Membranes Dry - Neck Exam Neck Exam: absent: Lymphadenopathy - Respiratory Exam Respiratory Exam: Decreased Breath Sounds - Cardiovascular Exam Cardiovascular Exam: REGULAR RHYTHM - GI/Abdominal Exam GI & Abdominal Exam: Distended, Soft - Rectal Exam Rectal Exam: Deferred - Exam Exam: NORMAL INSPECTION - Extremities Exam Extremities Exam: absent: Pedal Edema - Back Exam Back Exam: absent: CVA tenderness (L), CVA tenderness (R) Assessment and Plan (1) Cellulitis Status: Acute (2) Hyperglycemia Status: Acute (3) Non-healing ulcer of foot Status: Acute (4) Hyperglycemia without ketosis Status: Acute (5) Leg pain, bilateral Status: Acute (6) Ulcer Status: Acute (7) Osteomyelitis Status: Acute
--- NOTE | 2017-05-07 14:16 | CP.PCM.PN ---
Subjective - Date & Time of Evaluation Date of Evaluation: 05/07/17 Time of Evaluation: 07:40 - Subjective Subjective: dresing present on right foot Objective - Vital Signs/Intake and Output Vital Signs (last 24 hours): Temp Pulse Resp BP Pulse Ox 98.3 F 72 10 L 122/67 100 05/07/17 10:00 05/07/17 10:00 05/07/17 10:00 05/07/17 10:00 05/07/17 10:00 Intake and Output: 05/07/17 05/07/17 06:59 18:59 Intake Total 200 650 Output Total 800 Balance 200 -150 - Medications Medications: Current Medications Acetaminophen (Tylenol 325mg Tab) 650 mg PO Q6 PRN PRN Reason: Pain, Mild (1-3) Aspirin (Ecotrin) 81 mg PO DAILY [facility] Last Admin: 05/07/17 11:00 Dose: Not Given Bacitracin (Bacitracin) 0 gm TOP DAILY [facility] Last Admin: 05/07/17 11:00 Dose: Not Given Ciprofloxacin (Cipro) 500 mg PO Q12H [facility] Last Admin: 05/07/17 09:00 Dose: Not Given Famotidine (Pepcid) 20 mg PO DAILY [facility] Last Admin: 05/07/17 11:00 Dose: 20 mg Glimepiride (Amaryl) 4 mg PO DAILY [facility] Last Admin: 05/07/17 11:00 Dose: 4 mg Heparin Sodium (Porcine) (Heparin) 5,000 units SC Q8 [facility] Last Admin: 05/06/17 13:04 Dose: 5,000 units Hydromorphone HCl (Dilaudid) 1 mg IVP Q4H PRN PRN Reason: pain Last Admin: 05/07/17 12:57 Dose: 1 mg Insulin Human Regular (Novolin R) 0 unit SC ACHS [facility] PRN Reason: Protocol Last Admin: 05/07/17 12:46 Dose: 3 unit Lisinopril (Zestril) 5 mg PO DAILY [facility] Last Admin: 05/07/17 11:00 Dose: Not Given Metformin HCl (Glucophage Xr) 1,000 mg PO BIDCC [facility] Last Admin: 05/07/17 09:00 Dose: Not Given Oxycodone/Acetaminophen (Percocet 5/325 Mg Tab) 1 tab PO Q4H PRN PRN Reason: Pain, moderate (4-7) Stop: 05/10/17 09:28 Oxycodone/Acetaminophen (Percocet 5/325 Mg Tab) 2 tab PO Q4H PRN PRN Reason: Pain, severe (8-10) Stop: 05/10/17 09:28 Saccharomyces Boulardii (Florastor) 250 mg PO BID [facility] Silver Sulfadiazine (Silvadene 1% 20 Gm) 0 ea TOP DAILY [facility] Last Admin: 05/07/17 11:00 Dose: Not Given - Labs Labs: 05/05/17 06:30 05/05/17 06:30 PT 11.2 SECONDS (9.7-12.2) 04/24/17 14:38 INR 1.0 04/24/17 14:38 APTT 32 SECONDS (21-34) 04/24/17 14:38 - Constitutional Appears: Well - Head Exam Head Exam: ATRAUMATIC, NORMAL INSPECTION, NORMOCEPHALIC - Eye Exam Eye Exam: EOMI, Normal appearance, PERRL Pupil Exam: NORMAL ACCOMODATION, PERRL - ENT Exam ENT Exam: Mucous Membranes Moist, Normal Exam - Neck Exam Neck Exam: Full ROM, Normal Inspection. absent: Lymphadenopathy - Respiratory Exam Respiratory Exam: Decreased Breath Sounds - Cardiovascular Exam Cardiovascular Exam: REGULAR RHYTHM, +S1, +S2 - GI/Abdominal Exam GI & Abdominal Exam: Soft, Diminished Bowel Sounds - Rectal Exam Rectal Exam: Deferred Assessment and Plan (1) Cellulitis Status: Acute (2) Hyperglycemia Status: Acute (3) Non-healing ulcer of foot Status: Acute (4) Osteomyelitis Status: Acute (5) Ankle fracture, right Status: Acute (6) Ankle pain Status: Acute (7) Hyperglycemia without ketosis Status: Acute (8) Leg pain, bilateral Status: Acute (9) Ulcer Status: Acute - Assessment and Plan (Free Text) Plan: RLE cellulitis Podiatry consult placed-Dr. Liat sandoval appreciated Lower extremity duplex- negative for DVT X-rays of the right foot- Void in the soft tissue with radiolucency at the site of the wound but no presence of soft tissue emphysema. Periosteal giovanna reaction noted at the styloid process of the 5th metatarsal possibly indicating acute OM NM Bone Scan (04/28/17): findings c/w right ankle/foot cellulitis. Negative for OM. Wound CX (04/21/17): enterobacter cloacae - repeat culture Wound dressings- saline and dressing applied using Betadine, DSD, Bacitracin POD 6 s/p debridement of right foot Scheduled for repeat debridement/ bone biopsy Vascular consult placed-Dr. Mery sandoval appreciated Right CARA 0.86, Left CARA 0.77 with mild to moderate arterial insufficiency CTA- Moderate stenosis of common femoral, SFA, Popliteal arteries. Severe stenosis of anterior tibial, posterior tibial, peroneal arteries MRI switched to bonescan but patient refused Angiography (R)- mod stenosis of common femoral art, Mod stenosis @ origin of SFA. 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 severe tibial disease with small posterior tibial as major target vessel in foot. ID consult placed-Dr. Usman sandoval appreciated Cipro 500mg PO q12hrs (04/29/17, Day 9) as per ID patient will need close follow up and continued abx upon d/c Dilaudid 1mg IV q4hrs PRN DM A1C: 10.5 Glimeperide 4mg PO daily Metformin XR to 1000mg PO BID Lisinopril 5mg PO daily [facility] ASA 81mg PO daily f/u c-peptide f/u ECHO - if no CHF consider addition of Actos Prophylaxis Pepcid 20mg PO daily Heparin 5000u Q8H Held SCDs C/I
[2017-05-07] MEDS: Oxycodone/Acetaminophen 5/325 mg Tab PO PRN ×2 (16:04→21:24)
[2017-05-07 16:48] VITALS: RESP 20
[2017-05-07] MEDS: Saccharomyces Boulardi 250 mg Cap PO SCH (18:30)
--- NOTE | 2017-05-07 23:29 | CARD ---
APPROVED REPORT EKG Measurement Heart [id number] <Conclusion> Normal sinus rhythm Normal ECG
[2017-05-08] MEDS: HYDROmorphone 1 mg/ml ISec IVP PRN ×5 (01:04→20:52)
[2017-05-08 07:58] LABS: BASO # 0.1 K/uL (0.0-0.2); BASO % 0.7 % (0.0-2.0); EOS # 0.2 K/uL (0.0-0.7); EOS % 1.9 % (0.0-4.0); HEMOGLOBIN 12.4 g/dL (12.0-18.0); LYMPH # 2.3 K/uL (1.0-4.3); LYMPH % 24.4 % (20.0-40.0); MEAN CELL VOLUME 90.8 fL (80.0-94.0); MEAN CORPUSCULAR HEMOGLOBIN 31.8 pg (27.0-31.0); MEAN CORPUSCULAR HGB CONC 35.1 g/dL (33.0-37.0); MEAN PLATELET VOLUME 7.9 fL (7.2-11.7); MONO # 0.8 K/uL (0.0-0.8); MONO % 8.6 % (0.0-10.0); NEUT # 6.2 K/uL (1.8-7.0); NEUT % 64.4 % (50.0-75.0); NRBC % 0.1 % (0.0-2.0); RBC 3.88 Mil/uL (4.40-5.90); RED CELL DISTRIBUTION WIDTH 13.5 % (11.5-14.5); WHITE BLOOD COUNT 9.6 K/uL (4.8-10.8)
[2017-05-08 08:06] LABS: BLOOD UREA NITROGEN 33 mg/dL (9-20); CALCIUM 9.2 mg/dl (8.6-10.4); GFR AFRICAN-AMERICAN > 60; GFR NON-AFRICAN AMERICAN 59
[2017-05-08] MEDS: (Novolin R) Insulin Human Regular 100 units/ml vial SC SCH ×4 (08:30→21:30)
[2017-05-08] MEDS: Saccharomyces Boulardi 250 mg Cap PO SCH ×2 (09:41→17:27)
[2017-05-08] MEDS: Bacitracin Ointment 30 GM TUBE TOP SCH (09:43)
[2017-05-08] MEDS: Silver Sulfadiazine 1% Cream (20 gm) TOP SCH (09:43)
--- NOTE | 2017-05-08 09:44 | CP.PCM.PN ---
<Se Sierra - Last Filed: 05/08/17 15:14> Subjective - Date & Time of Evaluation Date of Evaluation: 05/08/17 Time of Evaluation: 09:44 - Subjective Subjective: Progress note for Dr. Tello's Service Pt seen and examined at bedside. He states that he was in pain last night after right foot wound debridement with application of allograft in the OR. He has refused MRI for several days now, despite having increased doses of analgesics on board for pain control prior to MRI. He denies any acute changes in his state of health. No acute events reported overnight as per nursing. Objective - Vital Signs/Intake and Output Vital Signs (last 24 hours): Temp Pulse Resp BP Pulse Ox 98 F 70 20 144/74 99 05/08/17 08:24 05/08/17 08:24 05/08/17 08:24 05/08/17 08:24 05/08/17 08:24 Intake and Output: 05/08/17 05/08/17 06:59 18:59 Intake Total 550 Output Total 1150 Balance -600 - Medications Medications: Current Medications Acetaminophen (Tylenol 325mg Tab) 650 mg PO Q6 PRN PRN Reason: Pain, Mild (1-3) Aspirin (Ecotrin) 81 mg PO DAILY [facility] Last Admin: 05/08/17 09:41 Dose: 81 mg Bacitracin (Bacitracin) 0 gm TOP DAILY [facility] Last Admin: 05/08/17 09:43 Dose: Not Given Ciprofloxacin (Cipro) 500 mg PO Q12H [facility] Last Admin: 05/08/17 09:41 Dose: 500 mg Famotidine (Pepcid) 20 mg PO DAILY [facility] Last Admin: 05/08/17 09:41 Dose: 20 mg Glimepiride (Amaryl) 4 mg PO DAILY [facility] Last Admin: 05/08/17 09:42 Dose: 4 mg Heparin Sodium (Porcine) (Heparin) 5,000 units SC Q8 [facility] Last Admin: 05/08/17 05:06 Dose: 5,000 units Hydromorphone HCl (Dilaudid) 1 mg IVP Q4H PRN PRN Reason: pain Last Admin: 05/08/17 09:40 Dose: 1 mg Insulin Human Regular (Novolin R) 0 unit SC ACHS [facility] PRN Reason: Protocol Last Admin: 05/08/17 08:30 Dose: Not Given Lisinopril (Zestril) 5 mg PO DAILY [facility] Last Admin: 05/08/17 09:42 Dose: 5 mg [facility] Last Admin: 05/07/17 17:30 Dose: 1,000 mg Oxycodone/Acetaminophen (Percocet 5/325 Mg Tab) 1 tab PO Q4H PRN PRN Reason: Pain, moderate (4-7) Stop: 05/10/17 09:28 Oxycodone/Acetaminophen (Percocet 5/325 Mg Tab) 2 tab PO Q4H PRN PRN Reason: Pain, severe (8-10) Stop: 05/10/17 09:28 Last Admin: 05/07/17 21:24 Dose: 2 tab Saccharomyces Boulardii (Florastor) 250 mg PO BID [facility] Last Admin: 05/08/17 09:41 Dose: 250 mg Silver Sulfadiazine (Silvadene 1% 20 Gm) 0 ea TOP DAILY [facility] Last Admin: 05/08/17 09:43 Dose: Not Given - Labs Labs: 05/08/17 07:40 05/08/17 07:40 PT 11.2 SECONDS (9.7-12.2) 04/24/17 14:38 INR 1.0 04/24/17 14:38 APTT 32 SECONDS (21-34) 04/24/17 14:38 - Constitutional Appears: No Acute Distress - Head Exam Head Exam: ATRAUMATIC, NORMOCEPHALIC - Eye Exam Eye Exam: Normal appearance - ENT Exam ENT Exam: Mucous Membranes Moist - Respiratory Exam Respiratory Exam: NORMAL BREATHING PATTERN. absent: Rales, Rhonchi, Wheezes - Cardiovascular Exam Cardiovascular Exam: REGULAR RHYTHM, +S1, +S2 - GI/Abdominal Exam GI & Abdominal Exam: Soft. absent: Distended, Tenderness - Extremities Exam Additional comments: wound dressing has serosanguinous drainage apparent over the incision site - Neurological Exam Neurological Exam: Alert, Awake, Oriented x3 - Psychiatric Exam Psychiatric exam: Normal Affect, Normal Mood - Skin Skin Exam: Dry, Warm Assessment and Plan - Assessment and Plan (Free Text) Plan: RLE cellulitis Podiatry consult placed-Dr. Liat sandoval appreciated POD 1 s/p Right foot wound debridement with application of allograft Follow up results of bone bx POD 7 s/p debridement of right foot Wound cleaned using saline and dressing applied with mupricin, dsd, and ABC Lower extremity duplex- negative for DVT X-rays of the right foot- Void in the soft tissue with radiolucency at the site of the wound but no presence of soft tissue emphysema. Periosteal giovanna reaction noted at the styloid process of the 5th metatarsal possibly indicating acute OM NM Bone Scan (04/28/17): findings c/w right ankle/foot cellulitis. Negative for OM. Wound CX (04/21/17): enterobacter cloacae - repeat culture 05/07- NGTD Vascular consult placed-Dr. Mery sandoval appreciated Right CARA 0.86, Left CARA 0.77 with mild to moderate arterial insufficiency CTA- Moderate stenosis of common femoral, SFA, Popliteal arteries. Severe stenosis of anterior tibial, posterior tibial, peroneal arteries MRI switched to bonescan but patient refused Angiography (R)- mod stenosis of common femoral art, Mod stenosis @ origin of SFA. 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 severe tibial disease with small posterior tibial as major target vessel in foot. ID consult placed-Dr. Usman sandoval appreciated Cipro 500mg PO q12hrs (04/29/17, Day 10) as per ID patient will need close follow up and continued abx upon d/c Tylenol 650mg PO q6hrs prn mild pain Dilaudid 1mg IV q4hrs PRN severe pain Percocet 5/325mg 1-2T PO q4hrs prn mod-severe pain DM A1C: 10.5 Glimeperide 4mg PO daily Metformin XR to 1000mg PO BID Lisinopril 5mg PO daily [facility] ASA 81mg PO daily f/u c-peptide f/u ECHO - if no CHF consider addition of Actos Prophylaxis Pepcid 20mg PO daily Heparin 5000u Q8H Held Florastor 250mg PO BID SCD[facility] C/I Case discussed with Dr. Tello All management as per Dr. Tello <Rashida Tello - Last Filed: 05/09/17 08:03> Objective - Vital Signs/Intake and Output Vital Signs (last 24 hours): Temp Pulse Resp BP Pulse Ox 98.5 F 82 20 123/73 98 03/28/18 00:00 05/09/17 00:00 05/09/17 00:00 05/09/17 00:00 05/09/17 00:00 Intake and Output: 05/09/17 05/09/17 06:59 18:59 Intake Total 660 Output Total 1200 Balance -540 - Medications Medications: Current Medications Acetaminophen (Tylenol 325mg Tab) 650 mg PO Q6 PRN PRN Reason: Pain, Mild (1-3) Aspirin (Ecotrin) 81 mg PO DAILY [facility] Last Admin: 05/08/17 09:41 Dose: 81 mg Bacitracin (Bacitracin) 0 gm TOP DAILY [facility] Last Admin: 05/08/17 09:43 Dose: Not Given Ciprofloxacin (Cipro) 500 mg PO Q12H [facility] Last Admin: 05/08/17 20:51 Dose: 500 mg Famotidine (Pepcid) 20 mg PO DAILY [facility] Last Admin: 05/08/17 09:41 Dose: 20 mg Glimepiride (Amaryl) 4 mg PO DAILY [facility] Last Admin: 05/08/17 09:42 Dose: 4 mg Heparin Sodium (Porcine) (Heparin) 5,000 units SC Q8 [facility] Last Admin: 05/09/17 05:38 Dose: 5,000 units Hydromorphone HCl (Dilaudid) 1 mg IVP Q4H PRN PRN Reason: pain Last Admin: 05/08/17 20:52 Dose: 1 mg Insulin Human Regular (Novolin R) 0 unit SC ACHS [facility] PRN Reason: Protocol Last Admin: 05/09/17 07:58 Dose: Not Given Lisinopril (Zestril) 5 mg PO DAILY [facility] Last Admin: 05/08/17 09:42 Dose: 5 mg Metformin HCl (Glucophage Xr) 1,000 mg PO BIDCC [facility] Last Admin: 05/08/17 16:28 Dose: 1,000 mg Oxycodone/Acetaminophen (Percocet 5/325 Mg Tab) 1 tab PO Q4H PRN PRN Reason: Pain, moderate (4-7) Stop: 05/10/17 09:28 Oxycodone/Acetaminophen (Percocet 5/325 Mg Tab) 2 tab PO Q4H PRN PRN Reason: Pain, severe (8-10) Stop: 05/10/17 09:28 Last Admin: 05/09/17 02:51 Dose: 2 tab Saccharomyces Boulardii (Florastor) 250 mg PO BID [facility] Last Admin: 05/08/17 17:27 Dose: 250 mg Silver Sulfadiazine (Silvadene 1% 20 Gm) 0 ea TOP DAILY [facility] Last Admin: 05/08/17 09:43 Dose: Not Given - Labs Labs: 05/08/17 07:40 05/08/17 07:40 PT 11.2 SECONDS (9.7-12.2) 04/24/17 14:38 INR 1.0 04/24/17 14:38 APTT 32 SECONDS (21-34) 04/24/17 14:38 Assessment and Plan (1) Cellulitis Status: Acute (2) Hyperglycemia Status: Acute (3) Non-healing ulcer of foot Status: Acute (4) Osteomyelitis Status: Acute (5) Ankle fracture, right Status: Acute (6) Ankle pain Status: Acute (7) Hyperglycemia without ketosis Status: Acute (8) Leg pain, bilateral Status: Acute (9) Ulcer Status: Acute Attending/Attestation - Attestation I have personally seen and examined this patient.: Yes I have fully participated in the care of the patient.: Yes I have reviewed all pertinent clinical information, including history, physical exam and plan: Yes Notes (Text): 05/09/17 08:03 case buddylilian polanco staff and resident..
--- NOTE | 2017-05-08 15:39 | CP.PCM.PN ---
Subjective - Date & Time of Evaluation Date of Evaluation: 05/08/17 Time of Evaluation: 07:20 - Subjective Subjective: s/p or Objective - Vital Signs/Intake and Output Vital Signs (last 24 hours): Temp Pulse Resp BP Pulse Ox 98 F 70 20 144/74 99 05/08/17 08:24 05/08/17 08:24 05/08/17 08:24 05/08/17 08:24 05/08/17 08:24 Intake and Output: 05/08/17 05/08/17 06:59 18:59 Intake Total 550 Output Total 1150 Balance -600 - Medications Medications: Current Medications Acetaminophen (Tylenol 325mg Tab) 650 mg PO Q6 PRN PRN Reason: Pain, Mild (1-3) Aspirin (Ecotrin) 81 mg PO DAILY [facility] Last Admin: 05/08/17 09:41 Dose: 81 mg Bacitracin (Bacitracin) 0 gm TOP DAILY [facility] Last Admin: 05/08/17 09:43 Dose: Not Given Ciprofloxacin (Cipro) 500 mg PO Q12H [facility] Last Admin: 05/08/17 09:41 Dose: 500 mg Famotidine (Pepcid) 20 mg PO DAILY [facility] Last Admin: 05/08/17 09:41 Dose: 20 mg Glimepiride (Amaryl) 4 mg PO DAILY [facility] Last Admin: 05/08/17 09:42 Dose: 4 mg Heparin Sodium (Porcine) (Heparin) 5,000 units SC Q8 [facility] Last Admin: 05/08/17 13:41 Dose: 5,000 units Hydromorphone HCl (Dilaudid) 1 mg IVP Q4H PRN PRN Reason: pain Last Admin: 05/08/17 09:40 Dose: 1 mg Insulin Human Regular (Novolin R) 0 unit SC ACHS [facility] PRN Reason: Protocol Last Admin: 05/08/17 11:34 Dose: 2 unit Lisinopril (Zestril) 5 mg PO DAILY [facility] Last Admin: 05/08/17 09:42 Dose: 5 mg Metformin HCl (Glucophage Xr) 1,000 mg PO BIDCC [facility] Last Admin: 05/08/17 09:00 Dose: Not Given Oxycodone/Acetaminophen (Percocet 5/325 Mg Tab) 1 tab PO Q4H PRN PRN Reason: Pain, moderate (4-7) Stop: 05/10/17 09:28 Oxycodone/Acetaminophen (Percocet 5/325 Mg Tab) 2 tab PO Q4H PRN PRN Reason: Pain, severe (8-10) Stop: 05/10/17 09:28 Last Admin: 05/07/17 21:24 Dose: 2 tab Saccharomyces Boulardii (Florastor) 250 mg PO BID [facility] Last Admin: 05/08/17 09:41 Dose: 250 mg Silver Sulfadiazine (Silvadene 1% 20 Gm) 0 ea TOP DAILY [facility] Last Admin: 05/08/17 09:43 Dose: Not Given - Labs Labs: 05/08/17 07:40 05/08/17 07:40 PT 11.2 SECONDS (9.7-12.2) 04/24/17 14:38 INR 1.0 04/24/17 14:38 APTT 32 SECONDS (21-34) 04/24/17 14:38 - Constitutional Appears: Well - Head Exam Head Exam: ATRAUMATIC, NORMAL INSPECTION, NORMOCEPHALIC - Eye Exam Eye Exam: EOMI, Normal appearance, PERRL Pupil Exam: NORMAL ACCOMODATION, PERRL - ENT Exam ENT Exam: Mucous Membranes Moist, Normal Exam - Neck Exam Neck Exam: Full ROM, Normal Inspection. absent: Lymphadenopathy - Respiratory Exam Respiratory Exam: Decreased Breath Sounds - Cardiovascular Exam Cardiovascular Exam: REGULAR RHYTHM, +S1, +S2 - GI/Abdominal Exam GI & Abdominal Exam: Soft, Diminished Bowel Sounds - Rectal Exam Rectal Exam: Deferred Assessment and Plan (1) Cellulitis Status: Acute (2) Hyperglycemia Status: Acute (3) Non-healing ulcer of foot Status: Acute (4) Osteomyelitis Status: Acute (5) Ankle fracture, right Status: Acute (6) Ankle pain Status: Acute (7) Hyperglycemia without ketosis Status: Acute (8) Leg pain, bilateral Status: Acute (9) Ulcer Status: Acute - Assessment and Plan (Free Text) Plan: Patient claims he wasin pain last night with the wound debridement with application of allograft in the OR he has refused MRI over last few days now even though increase the pain medicine as well as ask for more pain medicine if there is a pain RLE cellulitis Podiatry consult placed-Dr. Liat sandoval appreciated POD 1 s/p Right foot wound debridement with application of allograft Follow up results of bone bx POD 7 s/p debridement of right foot Wound cleaned using saline and dressing applied with mupricin, dsd, and ABC Lower extremity duplex- negative for DVT X-rays of the right foot- Void in the soft tissue with radiolucency at the site of the wound but no presence of soft tissue emphysema. Periosteal giovanna reaction noted at the styloid process of the 5th metatarsal possibly indicating acute OM NM Bone Scan (04/28/17): findings c/w right ankle/foot cellulitis. Negative for OM. Wound CX (04/21/17): enterobacter cloacae - repeat culture 05/07- NGTD Vascular consult placed-Dr. Mery sandoval appreciated Right CARA 0.86, Left CARA 0.77 with mild to moderate arterial insufficiency CTA- Moderate stenosis of common femoral, SFA, Popliteal arteries. Severe stenosis of anterior tibial, posterior tibial, peroneal arteries MRI switched to bonescan but patient refused Angiography (R)- mod stenosis of common femoral art, Mod stenosis @ origin of SFA. 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 severe tibial disease with small posterior tibial as major target vessel in foot. ID consult placed-Dr. Usman sandoval appreciated Cipro 500mg PO q12hrs (04/29/17, Day 10) as per ID patient will need close follow up and continued abx upon d/c Tylenol 650mg PO q6hrs prn mild pain Dilaudid 1mg IV q4hrs PRN severe pain Percocet 5/325mg 1-2T PO q4hrs prn mod-severe pain DM A1C: 10.5 Glimeperide 4mg PO daily Metformin XR to 1000mg PO BID Lisinopril 5mg PO daily HISS ASA 81mg PO daily f/u c-peptide f/u ECHO - if no CHF consider addition of Actos Prophylaxis Pepcid 20mg PO daily Heparin 5000u Q8H Held Florastor 250mg PO BID SCDs C/I
[2017-05-09] MEDS: Oxycodone/Acetaminophen 5/325 mg Tab PO PRN ×2 (02:51→11:29)
[2017-05-09] MEDS: (Novolin R) Insulin Human Regular 100 units/ml vial SC SCH ×2 (07:58→13:18)
[2017-05-09 08:21] LABS: BASO % 0.4 % (0.0-2.0); EOS # 0.1 K/uL (0.0-0.7); EOS % 1.6 % (0.0-4.0); HEMOGLOBIN 12.6 g/dL (12.0-18.0); LYMPH # 2.9 K/uL (1.0-4.3); LYMPH % 31.9 % (20.0-40.0); MEAN CELL VOLUME 91.2 fL (80.0-94.0); MEAN CORPUSCULAR HEMOGLOBIN 31.4 pg (27.0-31.0); MEAN CORPUSCULAR HGB CONC 34.4 g/dL (33.0-37.0); MEAN PLATELET VOLUME 8.2 fL (7.2-11.7); MONO # 0.8 K/uL (0.0-0.8); MONO % 9.3 % (0.0-10.0); NEUT # 5.2 K/uL (1.8-7.0); NEUT % 56.8 % (50.0-75.0); RBC 4.01 Mil/uL (4.40-5.90); RED CELL DISTRIBUTION WIDTH 13.4 % (11.5-14.5); WHITE BLOOD COUNT 9.1 K/uL (4.8-10.8)
[2017-05-09 08:57] LABS: ALB/GLOB RATIO 1.1 (1.0-2.1); ALBUMIN 3.7 g/dL (3.5-5.0); ALT/SGPT 22 U/L (21-72); AST/SGOT 29 U/L (17-59); BLOOD UREA NITROGEN 30 mg/dL (9-20); CALCIUM 9.4 mg/dl (8.6-10.4); GFR AFRICAN-AMERICAN > 60; GFR NON-AFRICAN AMERICAN > 60
--- NOTE | 2017-05-09 09:07 | CP.PCM.PN ---
Subjective - Date & Time of Evaluation Date of Evaluation: 05/09/17 Time of Evaluation: 09:06 - Subjective Subjective: Progress note for Dr. Tello's Service Pt seen and examined at bedside. Nursing reports no acute events overnight. Patient found lying comfortably in bed. He states he is still in a great deal of pain since the bone biopsy. Patient was recommended to go to [facility], but he refused. Instead he will follow up in Dr. Hall's office. Objective - Vital Signs/Intake and Output Vital Signs (last 24 hours): Temp Pulse Resp BP Pulse Ox 98 F 65 20 133/75 95 05/09/17 08:33 05/09/17 08:33 05/09/17 08:33 05/09/17 08:33 05/09/17 08:33 Intake and Output: 05/09/17 05/09/17 06:59 18:59 Intake Total 660 Output Total 1200 Balance -540 - Medications Medications: Current Medications Acetaminophen (Tylenol 325mg Tab) 650 mg PO Q6 PRN PRN Reason: Pain, Mild (1-3) Aspirin (Ecotrin) 81 mg PO DAILY [facility] Last Admin: 05/08/17 09:41 Dose: 81 mg Bacitracin (Bacitracin) 0 gm TOP DAILY [facility] Last Admin: 05/08/17 09:43 Dose: Not Given Ciprofloxacin (Cipro) 500 mg PO Q12H [facility] Last Admin: 05/09/17 08:30 Dose: 500 mg Famotidine (Pepcid) 20 mg PO DAILY [facility] Last Admin: 05/08/17 09:41 Dose: 20 mg Glimepiride (Amaryl) 4 mg PO DAILY [facility] Last Admin: 05/08/17 09:42 Dose: 4 mg Heparin Sodium (Porcine) (Heparin) 5,000 units SC Q8 [facility] Last Admin: 05/09/17 05:38 Dose: 5,000 units Hydromorphone HCl (Dilaudid) 1 mg IVP Q4H PRN PRN Reason: pain Last Admin: 05/08/17 20:52 Dose: 1 mg Insulin Human Regular (Novolin R) 0 unit SC ACHS [facility] PRN Reason: Protocol Last Admin: 05/09/17 07:58 Dose: Not Given Lisinopril (Zestril) 5 mg PO DAILY [facility] Last Admin: 03/27/18 09:42 Dose: 5 mg [facility] Admin: 05/09/17 08:34 Dose: 1,000 mg Oxycodone/Acetaminophen (Percocet 5/325 Mg Tab) 1 tab PO Q4H PRN PRN Reason: Pain, moderate (4-7) Stop: 05/10/17 09:28 Oxycodone/Acetaminophen (Percocet 5/325 Mg Tab) 2 tab PO Q4H PRN PRN Reason: Pain, severe (8-10) Stop: 05/10/17 09:28 Last Admin: 05/09/17 02:51 Dose: 2 tab Saccharomyces Boulardii (Florastor) 250 mg PO BID [facility] Last Admin: 05/08/17 17:27 Dose: 250 mg Silver Sulfadiazine (Silvadene 1% 20 Gm) 0 ea TOP DAILY [facility] Last Admin: 05/08/17 09:43 Dose: Not Given - Labs Labs: 05/09/17 08:07 05/09/17 08:07 PT 11.2 SECONDS (9.7-12.2) 04/24/17 14:38 INR 1.0 04/24/17 14:38 APTT 32 SECONDS (21-34) 04/24/17 14:38 - Additional Findings Additional findings: - Constitutional Appears: No Acute Distress - Head Exam Head Exam: ATRAUMATIC, NORMOCEPHALIC - Eye Exam Eye Exam: Normal appearance - ENT Exam ENT Exam: Mucous Membranes Moist - Respiratory Exam Respiratory Exam: NORMAL BREATHING PATTERN. absent: Rales, Rhonchi, Wheezes - Cardiovascular Exam Cardiovascular Exam: REGULAR RHYTHM, +S1, +S2 - GI/Abdominal Exam GI & Abdominal Exam: Soft. absent: Distended, Tenderness - Extremities Exam Additional comments: wound dressing changed Patient in post-op shoe - Neurological Exam Neurological Exam: Alert, Awake, Oriented x3 - Psychiatric Exam Psychiatric exam: Normal Affect, Normal Mood - Skin Skin Exam: Dry, Warm Assessment and Plan - Assessment and Plan (Free Text) Plan: RLE cellulitis Podiatry consult placed-Dr. Liat sandoval appreciated POD 2 s/p Right foot wound debridement with application of allograft Follow up results of bone bx POD 8 s/p debridement of right foot Wound cleaned using saline and dressing applied with mupricin, dsd, and ABC Lower extremity duplex- negative for DVT X-rays of the right foot- Void in the soft tissue with radiolucency at the site of the wound but no presence of soft tissue emphysema. Periosteal giovanna reaction noted at the styloid process of the 5th metatarsal possibly indicating acute OM NM Bone Scan (04/28/17): findings c/w right ankle/foot cellulitis. Negative for OM. Wound CX (04/21/17): enterobacter cloacae - repeat culture 05/07- NGTD Vascular consult placed-Dr. Mery sandoval appreciated Right CARA 0.86, Left CARA 0.77 with mild to moderate arterial insufficiency CTA- Moderate stenosis of common femoral, SFA, Popliteal arteries. Severe stenosis of anterior tibial, posterior tibial, peroneal arteries MRI switched to bonescan but patient refused Angiography (R)- mod stenosis of common femoral art, Mod stenosis @ origin of SFA. 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 severe tibial disease with small posterior tibial as major target vessel in foot. ID consult placed-Dr. Usman sandoval appreciated Cipro 500mg PO q12hrs (04/29/17, Day 10) as per ID patient will need close follow up and continued abx upon d/c Tylenol 650mg PO q6hrs prn mild pain Dilaudid 1mg IV q4hrs PRN severe pain Percocet 5/325mg 1-2T PO q4hrs prn mod-severe pain DM A1C: 10.5 Glimeperide 4mg PO daily Metformin XR to 1000mg PO BID Lisinopril 5mg PO daily HISS ASA 81mg PO daily c-peptide elevated f/u ECHO report as outpatient Prophylaxis Pepcid 20mg PO daily Heparin 5000u Q8H Held Florastor 250mg PO BID SCDs C/I Disposition: Pt for discharge today. Case discussed with Dr. Tello All management as per Dr. Tello
[2017-05-09] MEDS: Saccharomyces Boulardi 250 mg Cap PO SCH (11:29)
[2017-05-09] MEDS: Bacitracin Ointment 30 GM TUBE TOP SCH (11:32)
[2017-05-09] MEDS: Silver Sulfadiazine 1% Cream (20 gm) TOP SCH (11:33)
[2017-05-09 13:14] LABS: C-PEPTIDE 6.33 ng/mL (0.80-3.85)
--- NOTE | 2017-05-09 15:24 | CP.PCM.PN ---
Subjective - Date & Time of Evaluation Date of Evaluation: 05/09/17 Time of Evaluation: 09:00 - Subjective Subjective: s/p bx for d/c on PO rx follow up in 1 week Objective - Vital Signs/Intake and Output Vital Signs (last 24 hours): Temp Pulse Resp BP Pulse Ox 98 F 65 20 133/75 95 05/09/17 08:33 05/09/17 08:33 05/09/17 08:33 05/09/17 08:33 05/09/17 08:33 Intake and Output: 05/09/17 05/09/17 06:59 18:59 Intake Total 660 Output Total 1200 Balance -540 - Medications Medications: Current Medications Acetaminophen (Tylenol 325mg Tab) 650 mg PO Q6 PRN PRN Reason: Pain, Mild (1-3) Aspirin (Ecotrin) 81 mg PO DAILY [facility] Last Admin: 05/09/17 11:29 Dose: 81 mg Bacitracin (Bacitracin) 0 gm TOP DAILY [facility] Last Admin: 05/09/17 11:32 Dose: 1 applic Ciprofloxacin (Cipro) 500 mg PO Q12H [facility] Last Admin: 05/09/17 08:30 Dose: 500 mg Famotidine (Pepcid) 20 mg PO DAILY [facility] Last Admin: 05/09/17 11:29 Dose: 20 mg Glimepiride (Amaryl) 4 mg PO DAILY [facility] Last Admin: 05/09/17 11:29 Dose: 4 mg Heparin Sodium (Porcine) (Heparin) 5,000 units SC Q8 [facility] Last Admin: 05/09/17 13:18 Dose: 5,000 units Insulin Human Regular (Novolin R) 0 unit SC ACHS [facility] PRN Reason: Protocol Last Admin: 05/09/17 13:18 Dose: 3 unit Lisinopril (Zestril) 5 mg PO DAILY [facility] Last Admin: 05/09/17 11:29 Dose: 5 mg Metformin HCl (Glucophage Xr) 1,000 mg PO BIDCC [facility] Last Admin: 05/09/17 08:34 Dose: 1,000 mg Oxycodone/Acetaminophen (Percocet 5/325 Mg Tab) 1 tab PO Q4H PRN PRN Reason: Pain, moderate (4-7) Stop: 05/10/17 09:28 Oxycodone/Acetaminophen (Percocet 5/325 Mg Tab) 2 tab PO Q4H PRN PRN Reason: Pain, severe (8-10) Stop: 05/10/17 09:28 Last Admin: 05/09/17 11:29 Dose: 2 tab Saccharomyces Boulardii (Florastor) 250 mg PO BID [facility] Last Admin: 05/09/17 11:29 Dose: 250 mg Silver Sulfadiazine (Silvadene 1% 20 Gm) 0 ea TOP DAILY [facility] Last Admin: 05/09/17 11:33 Dose: 1 applic - Labs Labs: 05/09/17 08:07 05/09/17 08:07 PT 11.2 SECONDS (9.7-12.2) 04/24/17 14:38 INR 1.0 04/24/17 14:38 APTT 32 SECONDS (21-34) 04/24/17 14:38 - Constitutional Appears: Non-toxic, Cachectic - Head Exam Head Exam: NORMOCEPHALIC - Eye Exam Eye Exam: PERRL - ENT Exam ENT Exam: Mucous Membranes Dry - Neck Exam Neck Exam: absent: Lymphadenopathy - Respiratory Exam Respiratory Exam: Decreased Breath Sounds - Cardiovascular Exam Cardiovascular Exam: REGULAR RHYTHM Assessment and Plan (1) Cellulitis Status: Acute (2) Hyperglycemia Status: Acute (3) Non-healing ulcer of foot Status: Acute (4) Hyperglycemia without ketosis Status: Acute (5) Leg pain, bilateral Status: Acute (6) Ulcer Status: Acute (7) Osteomyelitis Status: Acute
--- NOTE | 2017-05-09 15:34 | CP.PCM.PN ---
Subjective - Date & Time of Evaluation Date of Evaluation: 05/09/17 Time of Evaluation: 15:27 - Subjective Subjective: Podiatry Progress Note- Dr. Josue 76 y.o male seen at bedside with attending Dr. Josue, 2 days s/p Right foot wound debridement wtih graft application. Patient is seen resting comfortably at bedside, in NAD, and AA0x3. Patient reports the same constant pain to the ankle. Patient denies acute overnight events. Patient denies nausea, fever, shortness of breath, chest pain, diarrhea or chills. No new pedal complaints. Objective - Vital Signs/Intake and Output Vital Signs (last 24 hours): Temp Pulse Resp BP Pulse Ox 98 F 65 20 133/75 95 05/09/17 08:33 05/09/17 08:33 05/09/17 08:33 05/09/17 08:33 05/09/17 08:33 Intake and Output: 05/09/17 05/09/17 06:59 18:59 Intake Total 660 Output Total 1200 Balance -540 - Medications Medications: Current Medications Acetaminophen (Tylenol 325mg Tab) 650 mg PO Q6 PRN PRN Reason: Pain, Mild (1-3) Aspirin (Ecotrin) 81 mg PO DAILY [facility] Last Admin: 05/09/17 11:29 Dose: 81 mg Bacitracin (Bacitracin) 0 gm TOP DAILY [facility] Last Admin: 05/09/17 11:32 Dose: 1 applic Ciprofloxacin (Cipro) 500 mg PO Q12H [facility] Last Admin: 05/09/17 08:30 Dose: 500 mg Famotidine (Pepcid) 20 mg PO DAILY [facility] Last Admin: 05/09/17 11:29 Dose: 20 mg Glimepiride (Amaryl) 4 mg PO DAILY [facility] Last Admin: 05/09/17 11:29 Dose: 4 mg Heparin Sodium (Porcine) (Heparin) 5,000 units SC Q8 [facility] Last Admin: 05/09/17 13:18 Dose: 5,000 units Insulin Human Regular (Novolin R) 0 unit SC ACHS [facility] PRN Reason: Protocol Last Admin: 05/09/17 13:18 Dose: 3 unit Lisinopril (Zestril) 5 mg PO DAILY [facility] Last Admin: 05/09/17 11:29 Dose: 5 mg Metformin HCl (Glucophage Xr) 1,000 mg PO BIDCC [facility] Last Admin: 05/09/17 08:34 Dose: 1,000 mg Oxycodone/Acetaminophen (Percocet 5/325 Mg Tab) 1 tab PO Q4H PRN PRN Reason: Pain, moderate (4-7) Stop: 05/10/17 09:28 Oxycodone/Acetaminophen (Percocet 5/325 Mg Tab) 2 tab PO Q4H PRN PRN Reason: Pain, severe (8-10) Stop: 05/10/17 09:28 Last Admin: 05/09/17 11:29 Dose: 2 tab Saccharomyces Boulardii (Florastor) 250 mg PO BID [facility] Last Admin: 05/09/17 11:29 Dose: 250 mg Silver Sulfadiazine (Silvadene 1% 20 Gm) 0 ea TOP DAILY [facility] Last Admin: 05/09/17 11:33 Dose: 1 applic - Labs Labs: 05/09/17 08:07 05/09/17 08:07 PT 11.2 SECONDS (9.7-12.2) 04/24/17 14:38 INR 1.0 04/24/17 14:38 APTT 32 SECONDS (21-34) 04/24/17 14:38 - Constitutional Appears: Well, Non-toxic, No Acute Distress - Extremities Exam Additional comments: RLE focused exam: dressing to right foot remains clean,dry,intact with mild sanguinous strikethrough on bandage VASC: Cap refill time: < 3 seconds to all digits. NEURO: Epicritic and protective sensation grossly intact - Neurological Exam Neurological Exam: Alert, Awake, Oriented x3 - Psychiatric Exam Psychiatric exam: Normal Affect, Normal Mood Assessment and Plan - Assessment and Plan (Free Text) Assessment: 76 year old male patient seen at bedside 2 days s/p wound debridement of right foot with graft application Plan: Patient seen and evaluated with attending Dr. Josue Afebrile, WBC 9.1 A1c 10.5% - stressed to patient importance of glucose control for wound healing X-rays of the right foot - No abscess, possible OM WBC bone scan - evidence of cellulitis, no evidence of acute OM to right foot or ankle CTA Right - Moderate stenosis of common femoral, SFA, Popliteal arteries. Severe stenosis of anterior tibial, posterior tibial, peroneal arteries s/p angio with Dr. Ordonez (04/25/17) - selective catherization of right femoral artery, atherectomy common femoral, balloon angioplasty tibio peroneal trunk. WCX (04/21): enterobacter cloacae R foot WCx intra-op: no anaerobes Continue abx per ID dressing to right foot reinforced with telfa, 4x4 gauze, ABD, kerlix Pathology report shows acute OM of distal 5th metatarsal patient will need 6 weeks of IV abx total patient has been instructed strict nonweightbearing with walker and has been extremely noncompliant according to PT Podiatry will continue to follow patient while in house
--- NOTE | 2017-05-09 19:23 | OP ---
PROCEDURE DATE: 05/07/2017 PREOPERATIVE DIAGNOSIS: Right foot nonhealing wound. POSTOPERATIVE DIAGNOSIS: Right foot nonhealing wound PROCEDURE: Right foot debridement with application of AlloDerm Regenerative Tissue Matrix and Rheo Allograft SURGEON: Dr. Lee Josue HYDRAULIC LIFT DRIVER: Dr. Nader Figueroa, PGY-1 ANESTHESIOLOGIST: Kim Gastelum MD TYPE OF ANESTHESIA: LMA with local 20 mL of 1:1 mixture of 1% lidocaine plain and 0.5% Marcaine plain. INDICATIONS: The patient is a 76-year-old male with the above diagnosis. The patient has exhausted conservative treatment at this time and now requests surgical intervention. The patient signed the consent after careful explanation of risks, benefits, complications, and alternatives to the procedure and wishes to proceed. No guarantees were given nor implied. PREPARATION: The patient was brought into the operating room and placed on the operating room table in a supine position. Time-out was performed for identification of the correct patient and procedure. After the induction of general anesthesia, approximately 20 mL of 1:1 mixture of 1% lidocaine plain and 0.5% Marcaine plain were administered in a proximal V-type fashion periwound. The right foot was then prepped and draped in a normal sterile manner and the procedure began. DESCRIPTION OF PROCEDURE: Attention was directed to the lateral aspect of the right foot where an ulceration measuring approximately 2.5 x 1.5 x 0.3 cm was noted at the level of the fifth metatarsal base extending down to bone. It was noted that the fifth metatarsal's styloid process was exposed, along with exposed tendon and surrounding fibrin/slough and necrotic tissue. Utilizing a 15 blade, all nonviable necrotic tissue was excisionally debrided, revealing bleeding tissue. A wound culture #1 was taken at this time. Next, utilizing an osteotome, the exposed bone was resected and passed off the operative field to be sent to Pathology (#2). Next, a bone culture (#3) was taken and passed off the operative field to be sent to Pathology. A second more proximal aspect of the fifth metatarsal bone was resected and passed off the operative field to be sent to Pathology as clean margin (#4). Next, utilizing a Versajet system on setting 7, the ulcer was excisionally debrided of all fibrotic and nonviable tissue. The ulcer was noted to have healthy bleeding wound edges and the resected bone was noted to be bleeding as well. Next, utilizing a abiodun bur, all rough edges of the bone was smoothed down. At this time, a bone culture clean margin (#5) was taken of the right foot and passed off the operative field to be sent to Pathology. Next, a 1:1 mixture of 2 mL of RHEO allograft and 2 mL of 0.5% Marcaine plain was placed around the wound to fill repair and fill damaged and lost tissue. Next, AlloDerm regenerative tissue matrix measuring approximately 4 x 7 cm was placed over the wound bed and adhered using 3-0 nylon around the perimeter of the wound. Bacitracin and Xeroform were applied to the wound bed and then dressed with sterile gauze, ABD pad, and Kerlix. POSTOPERATIVE CONDITION: The patient tolerated the anesthesia and procedure well and was escorted to the recovery room with vital signs stable and neurovascular status intact to the right foot. The dressing will remain clean, dry, and intact for approximately 7 days and then at that time the allograft will be viewed for incorporation into the ulceration. Podiatry will continue to follow the patient while the patient remains in-house. Nader Figueroa DPM Lee Josue DPM [facility]
[2017-05-10 11:13] VITALS: O2SAT 96
[2017-05-10 11:14] VITALS: BP 128/72; PULSE 70; TEMP 98.1
--- NOTE | 2017-05-10 12:31 | CARD ---
APPROVED REPORT EXAM: Two-dimensional and M-mode echocardiogram with Doppler and color Doppler. Other Information Quality : GoodRhythm : NSR INDICATION Syncope RISK FACTORS Hypertension Diabetes 2D DIMENSIONS IVSd1.3 (0.7-1.1cm)LVDd3.8 (3.9-5.9cm) PWd1.2 (0.7-1.1cm)LVDs2.2 (2.5-4.0cm) FS (%) 41.8 %LVEF (%)73.5 (>50%) M-Mode DIMENSIONS RVDd1.73 (2.1-3.2cm)Left Atrium (MM)2.42 (2.5-4.0cm) IVSd1.08 (0.7-1.1cm)Aortic Root3.36 (2.2-3.7cm) LVDd4.90 (4.0-5.6cm)Aortic Cusp Exc.1.88 (1.5-2.0cm) PWd1.22 (0.7-1.1cm)FS (%) 38 % LVDs3.05 (2.0-3.8cm)LVEF (%)68 (>50%) Mitral Valve MV E Ssldnaai10.5cm/sMV A Mgmobozj27.4cm/sE/A ratio0.6 TDI E/Lateral E'0.0E/Medial E'0.0 Tricuspid Valve TR Peak Dfedgyyn782ub/sTR Peak [id number] <Conclusion> Left ventricle: thickness: mild concentric thickening; size: normal; overall ejection fraction: 75%: diastolic filling pressures: normal Mitral valve: annulus: normal: leaflets: normal: excursion: normal; no significant trans-mitral gradient: mild incompetence: left atrium: normal Aortic valve: leaflets: mild calcific thickening excursion: normal; no significant trans-aortic gradient: No significant incompetence: aortic root: normal Right sided Structures: Pulmonary valve: normal; no significant incompetence; Tricuspid valve: normal; no significant incompetence: Intra-cardiac hemodynamics: pulmonary systolic pressures: 30 mmHg; central venous pressures: normal No pericardial effusion
== END 2017-05-09 17:00 | disposition home or self-care (01) | DRG 629 ==
LOC: C.ER 09:38 → C.9E 11:49 → C.3T 12:29
PROVIDERS: ADMIT Internal Medicine Nephrology; ATTEND Internal Medicine Nephrology
PROC: 3E0234Z Introduction of Serum, Toxoid and Vaccine into Muscle, Percutaneous Approach (ICD-10-PCS; principal; 2017-04-24)
PROC: 04CK3ZZ Extirpation of Matter from Right Femoral Artery, Percutaneous Approach (ICD-10-PCS; 2017-04-25)
PROC: 047K3ZZ Dilation of Right Femoral Artery, Percutaneous Approach (ICD-10-PCS; 2017-04-25)
PROC: 0HRMXK3 Replacement of Right Foot Skin with Nonautologous Tissue Substitute, Full Thickness, External Approach (ICD-10-PCS; 2017-05-07)
PROC: 0QBN0ZZ Excision of Right Metatarsal, Open Approach (ICD-10-PCS; 2017-05-07)
PROC: 0QBN0ZZ Excision of Right Metatarsal, Open Approach (ICD-10-PCS; 2017-05-09)
PROC: 04CK3ZZ Extirpation of Matter from Right Femoral Artery, Percutaneous Approach (ICD-10-PCS; 2017-05-09)
PROC: 047K3ZZ Dilation of Right Femoral Artery, Percutaneous Approach (ICD-10-PCS; 2017-05-09)
PROC: 047T3ZZ Dilation of Right Peroneal Artery, Percutaneous Approach (ICD-10-PCS; 2017-05-09)
DX: E11.69 Type 2 diabetes mellitus with other specified complication (principal); E11.52 Type 2 diabetes mellitus with diabetic peripheral angiopathy with gangrene; M86.171 Other acute osteomyelitis, right ankle and foot; E11.621 Type 2 diabetes mellitus with foot ulcer; E11.65 Type 2 diabetes mellitus with hyperglycemia; I10 Essential (primary) hypertension; I77.1 Stricture of artery; L97.519 Non-pressure chronic ulcer of other part of right foot with unspecified severity; Z87.891 Personal history of nicotine dependence; Z91.19 Patient's noncompliance with other medical treatment and regimen; Z79.4 Long term (current) use of insulin; Z23 Encounter for immunization; L89.890 Pressure ulcer of other site, unstageable

== ENCOUNTER 2017-06-12 06:24 | Day surgery (SDC) | payer MEDICARE ==
[2017-06-12] MEDS ORDERED: Bupivacaine HCl 0.25% PF (30 ml) Inj ONE (07:33)
[2017-06-12] MEDS ORDERED: ceFAZolin 1 gm in NS 0 GM/0 ML BAG IVPB ONE (07:33)
[2017-06-12] MEDS ORDERED: Lidocaine 2% MPF (5 ml) Inj ONE (07:33)
[2017-06-12] MEDS ORDERED: Ciprofloxacin 400mg/200ml D5W 400 MG/200 ML BAG IVPB ONE (07:50)
[2017-06-12] MEDS ORDERED: Propofol 10 mg/ml Inj (20 ML) ONE (07:52)
[2017-06-12] MEDS ORDERED: Midazolam 2 MG/2 ML VIAL ONE (07:52)
[2017-06-12] MEDS ORDERED: HYDROmorphone 0.5 mg/0.5 ml ISec IVP PRN (08:09)
[2017-06-12] MEDS ORDERED: Sodium Chloride 0.9% 20 ML IV ONE (08:13)
[2017-06-12] MEDS ORDERED: Bacitracin Ointment 30 GM TUBE ONE (08:48)
--- NOTE | 2017-06-12 08:58 | PCM.SURG1 ---
Surgeon's Initial Post Op Note - Surgeon's Notes Surgeon: Dr. Josue DPM Wastewater Treatment Operator: Dr. Perez DPM PGY-2 Type of Anesthesia: IV Sedation, Local Pre-Operative Diagnosis: right foot chronic non-healing wound Operative Findings: see dictation Post-Operative Diagnosis: same Operation Performed: right foot wound debridement with application of graft Specimen/Specimens Removed: wound culture Estimated Blood Loss: EBL {In ML}: 5 Blood Products Given: N/A Drains Used: No Drains Post-Op Condition: Good Date of Surgery/Procedure: 06/12/17 Time of Surgery/Procedure: 08:57
[2017-06-12 12:19] VITALS: BP 149/68; PULSE 62; RESP 18; TEMP 97.8; O2SAT 100
--- NOTE | 2017-06-13 00:52 | OP ---
PROCEDURE DATE: 06/12/2017 PREOPERATIVE DIAGNOSIS: Right foot chronic nonhealing wound. POSTOPERATIVE DIAGNOSIS: Right foot chronic nonhealing wound. PROCEDURE PERFORMED: 1. Debridement of nonhealing right foot ulcer. 2. Preparation of right foot wound graft. 3. Application of graft. SURGEON: Lee Josue DPM. BALLROOM DANCER: Dr. Rachel Perez DPM, PGY-2. ANESTHESIOLOGIST: Dr. Parikh. TYPE OF ANESTHESIA: IV sedation with local. INDICATIONS: The patient is a 77-year-old male with the above mentioned diagnosis. The patient has exhausted all conservative treatment at this time and now requires surgical intervention. The patient signed the consent after careful explanation of risks, benefits, and alternatives for surgical procedure. No guarantees were given nor implied. Consent was signed. N.p.o. status was confirmed prior to taking the patient to the operating room. PREPARATION: The patient was brought into the operating room and placed on the operating room table in a supine position. Time-out was performed for identification of correct patient and procedure. After induction of IV sedation, the patient received a total of 20 mL of 1:1 mixture of 0.5% Marcaine plain and 2% lidocaine plain in a local block fashion to the patient's right foot. The left foot was then prepped and draped in usual sterile manner and the procedure began. No tourniquet was used during the procedure. PROCEDURE: 1. Debridement of right foot nonhealing ulcer. Attention was directed to the lateral aspect of the right foot where the ulceration was located which measured approximately 4 cm x 3 cm x 0.2 cm with a fibrogranular base. Using a #15 blade, the previous graft was removed and the surgical site was debrided down to bleeding granular tissue. The nonviable tissue was passed off the field. Culture was taken and sent to pathology. 2. Preparation of the right foot wound base. Next, utilizing a VERSAJET on power level 3 as well as using a curette, the base of the ulceration was non-excisionally debrided of all fibrotic and nonviable tissue into healthy fresh bleeding, again the tissue appeared on the surgical field. The surgical site was then irrigated with copious amount of normal sterile saline and approximately 3 L of normal sterile saline with sewage plant operator using simpulse. 3. Application of graft. Next, attention was then directed to the surgical site where first an amnioexcel graft was placed. Next, Integra flowable graft was then placed over the amnioexcel. Last, an AlloDerm graft was soaked on the back table for 15 minutes and normal sterile saline. The graft was then placed over the wound and sutured with #3-0 nylon. The surgical site was then dressed with bacitracin, then Xeroform, next saline soaked gauze, then dry sterile dressing, and lastly VIDA wrap. POSTOPERATIVE CONDITION: The patient tolerated the anesthesia and procedure well and was escorted to recovery room with vital signs stable and neurovascular status intact to patient's right lower extremity. The patient is to remain weightbearing as tolerated to the right heal and surgical shoe. The patient will follow up with Dr. Josue, on outpatient basis. Rachel Perez DPM [facility]
== END 2017-06-12 11:55 | disposition home or self-care (01) ==
LOC: C.SDS 06:24
PROVIDERS: ATTEND Podiatrist Foot & Ankle Surgery
DX: E11.621 Type 2 diabetes mellitus with foot ulcer (principal); L97.518 Non-pressure chronic ulcer of other part of right foot with other specified severity; I10 Essential (primary) hypertension
CPT/HCPCS: 15002; 15271; 82948; 87070; J0744; J2250; J2704; J3010; Q4137